=== PATIENT | female | born 1940 | race Caucasian/White ===

== ENCOUNTER → 2017-01-27 | Outpatient (CLI) | payer MEDICARE, OTHER ==
[~2017-01-27] MED LIST: BUSP5 PO; COUM3TAB PO; COUM6TAB PO; DIOV160T6 PO; PRAV40TA2 PO; PREG25 PO; PROT40TA PO; RISP0.5T2 PO; RIVASTIGMINE PO; ZOLO50TA PO
[2017-01-27 16:04] LABS: INTERNATIONAL NORMALIZED RATIO 1.3 RATIO; PROTHROMBIN TIME - PATIENT 14.5 SEC (9.8-11.6)
== END ==
LOC: PLAB 15:36
DX: Z79.01 Long term (current) use of anticoagulants (principal)
CPT/HCPCS: 36415; 85610

== ENCOUNTER → 2017-10-05 | Outpatient (CLI) | payer MEDICARE, OTHER ==
[2017-10-05 14:07] LABS: INTERNATIONAL NORMALIZED RATIO 2.2 RATIO; PROTHROMBIN TIME - PATIENT 24.9 SEC (9.8-11.6)
== END ==
LOC: PLAB 12:56
DX: I80.9 Phlebitis and thrombophlebitis of unspecified site (principal); Z79.01 Long term (current) use of anticoagulants
CPT/HCPCS: 36415; 85610

== ENCOUNTER → 2017-11-11 | Outpatient (CLI) | payer MEDICARE, OTHER ==
[2017-11-11 13:35] LABS: INTERNATIONAL NORMALIZED RATIO 2.3 RATIO; PROTHROMBIN TIME - PATIENT 23.6 SEC (9.8-11.6)
== END ==
LOC: PLAB 11:54
DX: I80.9 Phlebitis and thrombophlebitis of unspecified site (principal); Z79.01 Long term (current) use of anticoagulants
CPT/HCPCS: 36415; 85610

== ENCOUNTER 2017-11-26 10:13 | Emergency (ER) | payer MEDICARE, OTHER ==
[2017-11-26 10:30] VITALS: BP 113/65; PULSE 85; RESP 18; TEMP 99.7; O2SAT 98
--- NOTE | 2017-11-26 11:31 | PD ---
HPI Chief Complaint: Fall Time Seen by Provider: 11:10 Travel History International Travel<30 days: No Contact w/Intl Traveler<30days: No Traveled to known affect area: No History of Present Illness HPI The patient was seen and examined in the presence of the nurse. This patient had a fall today. She is wheelchair bound in general. She was getting out of bed and tried to ambulate to her wheelchair but her diaper got caught on it and she stumbled and fell. She is not sure if she hit her head. She complains of left-sided neck pain. She has pain in both hips and knees. Severity is moderate. Duration 2 hours. No alleviating factors. Symptoms exacerbated by her deconditioning. No LOC. PFSH Past Medical History Arthritis: Yes Depression: Yes High Cholesterol: Yes Cerebrovascular Accident: Yes (2007) Diminished Hearing: Yes (BILATERAL) GERD: Yes Hypertension: Yes Neurologic: Yes Immunizations Current: Yes PNEUMOCCOCAL Vaccine (Year): 3 Menopausal: Yes Past Surgical History Ear Surgery: Yes Tympanostomy Tube: Yes (mastoidectomy) Social History Alcohol Use: Yes (WINE) Tobacco Use: No Substance Use: No Allergies-Medications (Allergen,Severity, Reaction): Coded Allergies: latex (Unverified Allergy, Intermediate, RASH, 07/06/17) Reported Meds & Prescriptions Reported Meds & Active Scripts Active Reported [Rivastigmine] 1.5 Mg PO BID Review of Systems General / Constitutional: No: Fever Eyes: No: Visual changes HENT: Positive: Headaches, Neck Pain Cardiovascular: No: Chest Pain or Discomfort Respiratory: No: Shortness of Breath Gastrointestinal: No: Abdominal Pain Genitourinary: No: Dysuria Musculoskeletal: Positive: Arthralgias, Limited ROM, Pain Skin: No Rash Neurologic: No: Weakness Psychiatric: No: Depression Endocrine: No: Polydipsia Hematologic/Lymphatic: No: Easy Bruising Physical Exam Narrative GENERAL: Well-nourished, well-developed patient with neck and leg pain . SKIN: Focused skin assessment reveals no rash and nodules. Skin is Warm and dry. HEAD: Atraumatic. Normocephalic. EYES: Pupils equal and round. No scleral icterus. No injection or drainage. ENT: No nasal bleeding or discharge. Mucous membranes pink and moist. NECK: Trachea midline. No JVD. No midline tenderness. No bruising or swelling. [place] collar was applied CARDIOVASCULAR: Regular rate and rhythm. No murmur appreciated. RESPIRATORY: No accessory muscle use. Clear to auscultation. Breath sounds equal bilaterally. GASTROINTESTINAL: Abdomen soft, non-tender, nondistended. Hepatic and splenic margins not palpable. MUSCULOSKELETAL: Patient's hip and knee joints are stiff bilaterally. Right leg seem shorter than the left. Baseline is unclear. No bruising or open wound. No clubbing. No cyanosis. No edema. NEUROLOGICAL: Awake and alert. No obvious cranial nerve deficits. Motor grossly within normal limits. Normal speech. PSYCHIATRIC: Appropriate mood and affect; insight and judgment normal. Data Data Last Documented VS Vital Signs Date Time Temp Pulse Resp B/P (MAP) Pulse Ox O2 Delivery O2 Flow Rate FiO2 11/26/17 12:42 96 14 121/70 (87) 94 Room Air 11/26/17 10:30 99.7 Orders Orders Iv Access Insert/Monitor (11/26/17 11:18) Complete Blood Count With Diff (11/26/17 11:18) Basic Metabolic Panel (Bmp) (11/26/17 11:18) Pelvis, Ap Only (Routine) (11/26/17 ) Femur (Ap & Lat/2vws) (11/26/17 ) Femur (Ap & Lat/2vws) (11/26/17 ) Ct Brain W/O Iv Contrast(Rout) (11/26/17 ) Ct Cerv Spine W/O Contrast (11/26/17 ) Ed Discharge Order (11/26/17 13:25) Labs Laboratory Tests Test 11/26/17 11:30 White Blood Count 4.3 TH/MM3 Red Blood Count 4.18 MIL/MM3 Hemoglobin 12.2 GM/DL Hematocrit 37.1 % Mean Corpuscular Volume 88.9 FL Mean Corpuscular Hemoglobin 29.2 PG Mean Corpuscular Hemoglobin Concent 32.8 % Red Cell Distribution Width 13.8 % Platelet Count 203 TH/MM3 Mean Platelet Volume 8.2 FL Neutrophils (%) (Auto) 68.8 % Lymphocytes (%) (Auto) 10.0 % Monocytes (%) (Auto) 19.0 % Eosinophils (%) (Auto) 0.1 % Basophils (%) (Auto) 2.1 % Neutrophils # (Auto) 3.0 TH/MM3 Lymphocytes # (Auto) 0.4 TH/MM3 Monocytes # (Auto) 0.8 TH/MM3 Eosinophils # (Auto) 0.0 TH/MM3 Basophils # (Auto) 0.1 TH/MM3 CBC Comment DIFF FINAL Differential Comment Blood Urea Nitrogen 14 MG/DL Creatinine 1.20 MG/DL Random Glucose 112 MG/DL Calcium Level 9.1 MG/DL Sodium Level 140 MEQ/L Potassium Level 4.2 MEQ/L Chloride Level 103 MEQ/L Carbon Dioxide Level 30.0 MEQ/L Anion Gap 7 MEQ/L Estimat Glomerular Filtration Rate 43 ML/MIN MDM Medical Decision Making Medical Screen Exam Complete: Yes Emergency Medical Condition: Yes Medical Record Reviewed: Yes Differential Diagnosis Hip fracture, cervical spine injury, pelvic fracture Narrative Course I have reviewed the patient's electronic medical record. IV placed CBC is normal Metabolic profile is normal Brain CT is negative for acute injury Cervical spine CT shows degenerative change without fracture I reviewed her pelvis x-ray is negative I reviewed her femur x-rays bilaterally are negative Extensive workup here is negative. Stable for outpatient follow-up. Recommended she discuss shelter placement with her physician given her general debility. She does get around with her wheelchair. Diagnosis Primary Impression: Fall Qualified Codes: W19.XXXA - Unspecified fall, initial encounter Additional Impressions: Cervical strain, acute Qualified Codes: S16.1XXA - Strain of muscle, fascia and tendon at neck level , initial encounter Multiple leg contusions Qualified Codes: S80.10XA - Contusion of unspecified lower leg, initial encounter Additional Instructions: The patient was advised to follow up with their physician and return if they worsen. Discussed shelter placement with her physician Med/Other Pt SpecificInfo: Other Disposition: 01 DISCHARGE HOME Condition: Stable Stephan Banerjee MD Nov 26, 2017 11:31
[2017-11-26 11:45] LABS: BASOPHIL # 0.1 TH/MM3 (0-0.2); BASOPHIL % 2.1 % (0.0-2.0); EOSINOPHIL % 0.1 % (0.0-4.0); HEMATOCRIT 37.1 % (35.0-46.0); HEMOGLOBIN 12.2 GM/DL (11.6-15.3); LYMPHOCYTE # 0.4 TH/MM3 (1.0-4.8); MEAN CELL VOLUME 88.9 FL (80.0-100.0); MEAN CORPUSCULAR HEMOGLOBIN 29.2 PG (27.0-34.0); MEAN CORPUSCULAR HGB CONC 32.8 % (32.0-36.0); MEAN PLATELET VOLUME 8.2 FL (7.0-11.0); MONOCYTE # 0.8 TH/MM3 (0-0.9); NEUT % 68.8 % (16.0-70.0); PLATELET COUNT 203 TH/MM3 (150-450); RED BLOOD COUNT 4.18 MIL/MM3 (4.00-5.30); RED CELL DISTRIBUTION WIDTH 13.8 % (11.6-17.2); WHITE BLOOD COUNT 4.3 TH/MM3 (4.0-11.0)
[2017-11-26 11:56] LABS: CALCIUM 9.1 MG/DL (8.5-10.1)
[2017-11-26 12:00] LABS: CREATININE 1.2 MG/DL (0.50-1.00)
--- NOTE | 2017-11-26 12:21 | RADRPT ---
EXAM DATE/TIME: 11/26/2017 11:37 [facility] COMPARISON: No previous studies available for comparison. INDICATIONS : Trauma. Fall. RADIATION DOSE: 63.75 CTDIvol (mGy) MEDICAL HISTORY : Cerebrovascular disease. Gastroesophageal reflux disease. SURGICAL HISTORY : Mastoidectomy. ENCOUNTER: Initial ACUITY: 1 day PAIN SCALE: 5/10 LOCATION: cranial TECHNIQUE: Multiple contiguous axial images were obtained of the head. Using automated exposure control and adj ustment of the mA and/or kV according to patient size, radiation dose was kept as low as reasonably a chievable to obtain optimal diagnostic quality images. DICOM format image data is available electro nically for review and comparison. FINDINGS: CEREBRUM: Old infarct right orbital focal region. Ventricle size appropriate. No extra-axial fluid. No paren chymal hemorrhage. POSTERIOR FOSSA: The cerebellum and brainstem are intact. The 4th ventricle is midline. The cerebellopontine angle i s unremarkable. EXTRACRANIAL: The visualized portion of the orbits is intact. SKULL: The calvaria is intact. No evidence of skull fracture. CONCLUSION: Old infarct Right orbitofrontal region Yvan Jung MD FACR on November 26, 2017 at 12:17 Board Certified Radiologist. This report was verified electronically.
--- NOTE | 2017-11-26 12:30 | RADRPT ---
EXAM DATE/TIME: 11/26/2017 11:37 [facility] COMPARISON: No previous studies available for comparison. INDICATIONS : Trauma. Fall. RADIATION DOSE: 26.41 CTDIvol (mGy) MEDICAL HISTORY : Cerebrovascular disease. Gastroesophageal reflux disease. Hypertension. SURGICAL HISTORY : Mastoidectomy. ENCOUNTER: Initial ACUITY: 1 day PAIN SCALE: 7/10 LOCATION: neck TECHNIQUE: Volumetric scanning of the cervical spine was performed. Multiplanar reconstructions in the sagittal, coronal and oblique axial planes were performed. Using automated exposure control and adjustment o f the mA and/or kV according to patient size, radiation dose was kept as low as reasonably achievable to obtain optimal diagnostic quality images. DICOM format image data is available electronically f or review and comparison. FINDINGS: There is moderate to severe degenerative disc throughout the spine with a mild dextroscoliosis. There is no acute fracture or spondylolisthesis. There is no significant central bony canal stenosis. Ther e is mild multilevel bony foraminal encroachment. No prevertebral soft tissue swelling. Mild osteopen ia. CONCLUSION: 1. Moderate to severe degenerative disc disease. No acute findings. Gianni Henry MD on November 26, 2017 at 12:25 Board Certified Radiologist. This report was verified electronically.
--- NOTE | 2017-11-26 12:31 | RADRPT ---
EXAM DATE/TIME: 11/26/2017 11:51 [facility] COMPARISON: No previous studies available for comparison. INDICATIONS : Bilateral hip pain post fall. MEDICAL HISTORY : None. SURGICAL HISTORY : None. ENCOUNTER: Initial ACUITY: 1 day PAIN SCORE: Non-responsive. LOCATION: Bilateral hips FINDINGS: A single frontal view of the pelvis demonstrates no evidence of fracture. The bony pelvic ring is in tact. Bony mineralization is decreased. Mild osteoarthritis of the hips.. CONCLUSION: 1. No acute findings. Osteopenia. Mild osteoarthritis of the hips. Gianni Henry MD on November 26, 2017 at 12:29 Board Certified Radiologist. This report was verified electronically.
--- NOTE | 2017-11-26 12:32 | RADRPT ---
EXAM DATE/TIME: 11/26/2017 11:51 [facility] COMPARISON: No previous studies available for comparison. INDICATIONS : Left leg pain post fall. MEDICAL HISTORY : None. SURGICAL HISTORY : None. ENCOUNTER: Initial ACUITY: 1 day PAIN SCORE: Non-responsive. LOCATION: Left femur FINDINGS: Two view examination of the left femur demonstrates no acute femur fracture. Mild osteoarthritis at t he left hip and left knee. No bony destructive changes. CONCLUSION: 1. No acute findings. Mild osteoarthritis of the left hip and left knee. Osteopenia. Gianni Henry MD on November 26, 2017 at 12:30 Board Certified Radiologist. This report was verified electronically.
--- NOTE | 2017-11-26 12:32 | RADRPT ---
EXAM DATE/TIME: 11/26/2017 11:51 [facility] COMPARISON: No previous studies available for comparison. INDICATIONS : Right leg pain post fall. MEDICAL HISTORY : None. SURGICAL HISTORY : None. ENCOUNTER: Initial ACUITY: 1 day PAIN SCORE: Non-responsive. LOCATION: Right femur FINDINGS: Two view examination of the right femur demonstrates no evidence of fracture or dislocation. Bony mi neralization is decreased. Mild osteoarthritis right hip. Severe osteoarthritis at the right knee. CONCLUSION: 1. No acute findings. Gianni Henry MD on November 26, 2017 at 12:30 Board Certified Radiologist. This report was verified electronically.
[2017-11-26 12:42] VITALS: BP 121/70; PULSE 96; RESP 14; O2SAT 94
[2017-11-26 14:43] VITALS: BP 135/68; PULSE 90; RESP 16; O2SAT 93
[2017-11-27] MEDS ORDERED: RIVA1.5C PO (14:20)
[2017-11-27] MEDS ORDERED: RISP0.5T25 PO (14:20)
[2017-11-27] MEDS ORDERED: PROT40TA PO (14:20)
[2017-11-27] MEDS ORDERED: ALBUAER3 INH (14:20)
[2017-11-27] MEDS ORDERED: WARF-58 PO (14:20)
[2017-11-27] MEDS ORDERED: SERT-129 PO (14:20)
[2017-11-27] MEDS ORDERED: COUM3TAB PO (14:20)
== END 2017-11-26 15:48 | disposition home or self-care (01) ==
LOC: PHED 10:13
DX: S16.1XXA Strain of muscle, fascia and tendon at neck level, initial encounter (principal); S80.10XA Contusion of unspecified lower leg, initial encounter; I10 Essential (primary) hypertension; M25.552 Pain in left hip; M25.551 Pain in right hip; M25.562 Pain in left knee; M25.561 Pain in right knee; W01.0XXA Fall on same level from slipping, tripping and stumbling without subsequent striking against object, initial encounter
CPT/HCPCS: 70450; 72125; 72170; 73552; 80048; 85025; 99285

== ENCOUNTER 2017-11-27 11:46 | Inpatient (IN) | payer MEDICARE, OTHER ==
[2017-11-27] VITALS (17 sets, daily range): BP systolic 92–138; BP diastolic 52–83; PULSE 79–150; RESP 18–20; TEMP 97.9–98.9; O2SAT 96–99
[~2017-11-27] VITALS: Ht 165.1 cm; Wt 97.0 kg
[~2017-11-27 11:46] MED LIST changes: -BUSP5 PO; -COUM3TAB PO; -COUM6TAB PO; -DIOV160T6 PO; -PRAV40TA2 PO; -PREG25 PO; -PROT40TA PO; -RISP0.5T2 PO; -ZOLO50TA PO
--- NOTE | 2017-11-27 12:06 | PD ---
HPI Chief Complaint: Neuro Symptoms/ Deficits Time Seen by Provider: 11:55 Travel History International Travel<30 days: No Contact w/Intl Traveler<30days: No Traveled to known affect area: No History of Present Illness HPI This is a 77-year-old female who primarily ambulates in a wheelchair. She presents via EMS for evaluation after fall. Per their report the patient slid out of bed today and her was unable to get her up. The also reported to EMS that the patient has been acting strange over the past few days , not answering questions when prompted primarily. She also had wheezing on route which is also reportedly new. On examination the patient is very hard of hearing and appears to have difficulty with comprehension which is limiting history. She does corroborate EMS report that she slid out of bed today and was unable to get up. She is complaining of neck pain and seems to have pain in the left hip with any sort of movement of the left hip. It should be noted that the patient was seen at [facility] after having a mechanical fall yesterday. PFSH Past Medical History Arthritis: Yes Depression: Yes High Cholesterol: Yes Cerebrovascular Accident: Yes (2007) Diminished Hearing: Yes (BILATERAL AIDS) GERD: Yes Hypertension: Yes Neurologic: Yes Immunizations Current: Yes PNEUMOCCOCAL Vaccine (Year): 3 Menopausal: Yes Past Surgical History Ear Surgery: Yes Tympanostomy Tube: Yes (mastoidectomy) Social History Alcohol Use: Yes (WINE) Tobacco Use: No Substance Use: No Allergies-Medications (Allergen,Severity, Reaction): Coded Allergies: latex (Unverified Allergy, Intermediate, RASH, 07/06/17) Reported Meds & Prescriptions Reported Meds & Active Scripts Active Reported Proair Hfa 8.5 GM Inh (Albuterol Sulfate) 90 Mcg/Act Aer 2 Puff INH Q4H PRN 108 mcg/actuation Protonix (Pantoprazole Sodium) 40 Mg Tab 40 Mg PO DAILY Risperdal (Risperidone) 0.5 Mg Tab 0.5 Mg PO HS Sertraline (Sertraline HCl) 100 Mg Tab 100 Mg PO DAILY Warfarin 3 Mg Tab 4.5 Mg PO WEDNESDAY Coumadin (Warfarin) 3 Mg Tab 3 Mg PO SUMOTUWEFRSA Take 1 tablet (3mg) daily on Wednesday,Wednesday,Wednesday,Wednesday,Wednesday and Wednesday Rivastigmine 1.5 Mg Cap 1.5 Mg PO BID Review of Systems ROS Limitations: Clinical Condition Except as stated in HPI: all other systems reviewed are Neg Physical Exam Exam Limitations: Clinical Condition, Poor Historian Narrative GENERAL: This is an obese elderly female who is in no acute distress. SKIN: Warm and dry. Severe intertrigo noted in the groin. HEAD: Atraumatic. Normocephalic. EYES: Pupils equal and round reactive to light extraocular muscles are intact. No scleral icterus. No injection or drainage. ENT: No nasal bleeding or discharge. Mucous membranes pink and moist. NECK: Trachea midline. No JVD. CARDIOVASCULAR: Regular rate and rhythm. No murmur appreciated. RESPIRATORY: No accessory muscle use. Bilateral wheezing noted. Breath sounds equal bilaterally. GASTROINTESTINAL: Abdomen soft, non-tender, nondistended. Hepatic and splenic margins not palpable. MUSCULOSKELETAL: Left hip is internally rotated. There is tenderness to palpation left hip and pain with any sort of passive range of motion of the left hip. NEUROLOGICAL: Awake and alert. No obvious cranial nerve deficits. Motor grossly within normal limits. Data Data Last Documented VS Vital Signs Date Time Temp Pulse Resp B/P (MAP) Pulse Ox O2 Delivery O2 Flow Rate FiO2 11/27/17 14:19 112 18 103/62 (76) 98 Nasal Cannula 3.00 11/27/17 12:[address] Cerv Spine W/O Contrast (11/27/17 ) Chest, Single Ap (11/27/17 ) Ct Brain W/O Iv Contrast(Rout) (11/27/17 ) Hip, Uni(Ap&Lat) W Ap Pelvis (11/27/17 ) Electrocardiogram (11/27/17 12:03) Complete Blood Count With Diff (11/27/17 12:03) Comprehensive Metabolic Panel (11/27/17 12:03) Prothrombin Time / Inr (Pt) (11/27/17 12:03) Act Partial Throm Time (Ptt) (11/27/17 12:03) Urinalysis - C+S If Indicated (11/27/17 12:03) Blood Glucose (11/27/17 12:03) Ecg Monitoring (11/27/17 12:03) Iv Access Insert/Monitor (11/27/17 12:03) Oximetry (11/27/17 12:03) Sodium Chloride 0.9% Flush (Ns Flush) (11/27/17 12:15) Albuterol-Ipratropium Neb (Duoneb Neb) (11/27/17 12:15) Diltiazem Inj (Cardizem Inj) (11/27/17 14:00) Sodium Chlor 0.9% 1000 Ml Inj (Ns 1000 M (11/27/17 13:46) Urine Culture (11/27/17 13:20) Diltiazem Inj (Cardizem Inj) (11/27/17 14:15) Diltiazem Inj (Cardizem Inj) (11/27/17 14:45) Admit Order (Ed Use Only) (11/27/17 14:41) Nystatin Powder (Mycostatin Powder) (11/27/17 14:45) Labs Laboratory Tests Test 11/27/17 13:20 White Blood Count 6.7 TH/MM3 Red Blood Count 4.27 MIL/MM3 Hemoglobin 12.6 GM/DL Hematocrit 38.5 % Mean Corpuscular Volume 90.2 FL Mean Corpuscular Hemoglobin 29.5 PG Mean Corpuscular Hemoglobin Concent 32.7 % Red Cell Distribution Width 14.4 % Platelet Count 174 TH/MM3 Mean Platelet Volume 8.8 FL Neutrophils (%) (Auto) 57.9 % Lymphocytes (%) (Auto) 29.3 % Monocytes (%) (Auto) 12.6 % Eosinophils (%) (Auto) 0.0 % Basophils (%) (Auto) 0.2 % Neutrophils # (Auto) 3.9 TH/MM3 Lymphocytes # (Auto) 2.0 TH/MM3 Monocytes # (Auto) 0.8 TH/MM3 Eosinophils # (Auto) 0.0 TH/MM3 Basophils # (Auto) 0.0 TH/MM3 CBC Comment DIFF FINAL Differential Comment Prothrombin Time 19.7 SEC Prothromb Time International Ratio 1.9 RATIO Activated Partial Thromboplast Time 37.8 SEC Urine Color YELLOW Urine Turbidity HAZY Urine pH 5.5 Urine Specific Newman 1.027 Urine Protein 100 mg/dL Urine Glucose (UA) NEG mg/dL Urine Ketones 10 mg/dL Urine Occult Blood SMALL Urine Nitrite NEG Urine Bilirubin NEG Urine Urobilinogen LESS THAN 2.0 MG/DL Urine Leukocyte Esterase NEG Urine RBC 1 /hpf Urine WBC 2 /hpf Urine Squamous Epithelial Cells 1 /hpf Urine Amorphous Sediment MOD Urine Bacteria FEW /hpf Urine Granular Casts 4 /lpf Urine Mucus FEW /lpf Microscopic Urinalysis Comment CATH-CULTURE IND Blood Urea Nitrogen 15 MG/DL Creatinine 1.22 MG/DL Random Glucose 124 MG/DL Total Protein 7.5 GM/DL Albumin 3.4 GM/DL Calcium Level 9.2 MG/DL Alkaline Phosphatase 53 U/L Aspartate Amino Transf (AST/SGOT) 51 U/L Alanine Aminotransferase (ALT/SGPT) 23 U/L Total Bilirubin 0.4 MG/DL Sodium Level 139 MEQ/L Potassium Level 4.0 MEQ/L Chloride Level 101 MEQ/L Carbon Dioxide Level 29.7 MEQ/L Anion Gap 8 MEQ/L Estimat Glomerular Filtration Rate 43 ML/MIN [facility] Medical Decision Making Medical Screen Exam Complete: Yes Emergency Medical Condition: Yes Medical Record Reviewed: Yes Interpretation(s) Imaging studies reveal degenerative changes with no acute findings Differential Diagnosis Inability to ambulate, CVA, dehydration, UTI, electrolyte abnormality, intracranial hemorrhage... Narrative Course The patient will be placed on ECG monitoring pulse oximetry. A twelve-lead EKG will be obtained. Plan is for CT of the brain, cervical spine. Left hip x-ray , chest x-ray has been ordered. Lab work, urinalysis have been ordered. DuoNeb therapy will be administered. I discussed with the patient's reports over the past several days the patient has had a decline in ability to perform activities of daily living. He is unable to care for her in her current state of health. Shortly after the patient received DuoNeb treatment her heart rate was noted to be in the 140s. EKG reveals atrial fibrillation with RVR. No obvious history of this on her medical records and the patient is noncontributory per her history. The patient will be given IV fluid bolus as well as diltiazem bolus. Initial diltiazem bolus with minimal change in heart rate, second bolus was initiated with minimal change in heart rate. Therefore diltiazem drip has been initiated. Nystatin powder has been ordered for her intertrigo. The patient was admitted to her primary care physician Dr. Glass. Diagnosis Primary Impression: Atrial fibrillation with RVR Additional Impressions: Altered mental status Intertrigo Decreased activities of daily living (ADL) Admitting Information Admitting Physician Requests: Admit Chuck Rebolledo Nov 27, 2017 12:06
[2017-11-27] MEDS ORDERED: SODIUM CHLORIDE 0.9% FLUSH 10 ML FLUSH IV FLUSH PRN (12:15)
--- NOTE | 2017-11-27 12:49 | RADRPT ---
EXAM DATE/TIME: 11/27/2017 12:25 [facility] COMPARISON: No previous studies available for comparison. INDICATIONS : Chest discomfort, altered mental status starting today MEDICAL HISTORY : None. SURGICAL HISTORY : None. ENCOUNTER: Initial ACUITY: 1 day PAIN SCORE: Non-responsive. LOCATION: Bilateral chest FINDINGS: Degenerative changes and scoliosis of the thoracic spine are noted. The heart is minimally prominent. The pulmonary vascular pattern is normal. The lungs are clear. CONCLUSION: 1. No acute focal pulmonary infiltrate or pulmonary vascular congestion. 2. Mild cardiomegaly. 3. Degenerative changes and scoliosis of the thoracic spine. Kameron Elizabeth MD on November 27, 2017 at 12:46 Board Certified Radiologist. This report was verified electronically.
--- NOTE | 2017-11-27 12:51 | RADRPT ---
EXAM DATE/TIME: 11/27/2017 12:19 [facility] COMPARISON: No previous studies available for comparison. INDICATIONS : Left hip pain with no known injury MEDICAL HISTORY : None. SURGICAL HISTORY : None. ENCOUNTER: Initial ACUITY: 1 day PAIN SCORE: 7/10 LOCATION: Left entire hip FINDINGS: No acute fracture or dislocation. Degenerative changes and scoliosis of the lower lumbar spine. CONCLUSION: 1. No acute fracture or dislocation. 2. Degenerative changes and scoliosis of the lower lumbar spine. Kameron Elizabeth MD on November 27, 2017 at 12:47 Board Certified Radiologist. This report was verified electronically.
[2017-11-27] MEDS: RESP: ALBUTEROL 2.5 MG/IPRATROPIUM 0.5 MG NEB (SCH) INH (12:57)
--- NOTE | 2017-11-27 13:09 | RADRPT ---
EXAM DATE/TIME: 11/27/2017 12:40 [facility] COMPARISON: CT BRAIN W/O CONTRAST, November 26, 2017, 11:37. INDICATIONS : Altered mental status. RADIATION DOSE: 44.32 CTDIvol (mGy) MEDICAL HISTORY : Hypertension. Stroke SURGICAL HISTORY : mastoidectomy ENCOUNTER: Initial ACUITY: 1 day PAIN SCALE: Non-responsive LOCATION: Bilateral head TECHNIQUE: Multiple contiguous axial images were obtained of the head. Using automated exposure control and adj ustment of the mA and/or kV according to patient size, radiation dose was kept as low as reasonably a chievable to obtain optimal diagnostic quality images. DICOM format image data is available electro nically for review and comparison. FINDINGS: CEREBRUM: There is evidence of an old infarct involving the right middle cerebral artery distribution with ence phalomalacia throughout the right temporal and parietal lobes and ex vacuo dilatation of right latera l ventricle. No acute infarct, acute hemorrhage, midline shift or extra-axial fluid collections are n oted. POSTERIOR FOSSA: The cerebellum and brainstem are intact. The 4th ventricle is midline. The cerebellopontine angle i s unremarkable. EXTRACRANIAL: The visualized portion of the orbits is intact. Mild mucosal thickening is noted within the sphenoid sinuses bilaterally. SKULL: The calvaria is intact. No evidence of skull fracture. CONCLUSION: 1. Old right MCA infarct with associated encephalomalacia involving the right temporal and parietal l obes and ex vacuo dilatation of the right lateral ventricle. 2. No acute infarct, acute hemorrhage, mass effect or extra-axial fluid collections. Kameron Elizabeth MD on November 27, 2017 at 13:04 Board Certified Radiologist. This report was verified electronically.
--- NOTE | 2017-11-27 13:17 | RADRPT ---
EXAM DATE/TIME: 11/27/2017 12:40 [place] COMPARISON: CT CERVICAL SPINE W/O CONTRAST, November 26, 2017, 11:37. INDICATIONS : Trauma, fall. RADIATION DOSE: 31.32 CTDIvol (mGy) MEDICAL HISTORY : Stroke. Hypertension. SURGICAL HISTORY : mastoidectomy ENCOUNTER: Initial ACUITY: 1 day PAIN SCALE: Non-responsive LOCATION: Bilateral neck TECHNIQUE: Volumetric scanning of the cervical spine was performed. Multiplanar reconstructions in the sagittal, coronal and oblique axial planes were performed. Using automated exposure control and adjustment o f the mA and/or kV according to patient size, radiation dose was kept as low as reasonably achievable to obtain optimal diagnostic quality images. DICOM format image data is available electronically f or review and comparison. FINDINGS: Sagittal images demonstrate normal vertebral body alignment and curvature. The odontoid is intact. Th e occipital condyles and lateral masses of C1 are intact. Axial images were performed from C2-C3 to C7-T1. There is multilevel disc space narrowing and marginal osteophyte formation maximal at C4-C5. There is osteorathritis involving the atlantoaxial joint with sclerosis and osteophyte formation. The re is calcification of the transverse ligament. There is fluid in the sphenoid sinus. There is previo us right mastoidectomy. C2-C3: There is no evidence of disc protrusion or spinal canal stenosis. There is moderate facet arthritis o n the left. C3-C4: There is osteophytic ridging along the posterior aspect of vertebral body. There is mild neural eliceo inal narrowing bilaterally. There is mild facet arthritis bilaterally. C4-C5: There is osteophytic ridging along the posterior aspect of vertebral body. There is no significant sp inal canal stenosis. C5-C6: There is uncovertebral joint hypertrophy on left side. There is mild left sided neural foraminal narr owing. There is no significant spinal canal stenosis. C6-C7: There is osteophytic ridging along the posterior aspect of vertebral body. There is mild facet arthri tis bilaterally. C7-T1: There is no evidence of disc protrusion or spinal canal stenosis. There is mild facet arthritis bilat erally. CONCLUSION: 1. Moderate degenerative changes as described above. There is no evidence of acute fracture. Marcos Worrell MD on November 27, 2017 at 13:10 Board Certified Radiologist. This report was verified electronically.
[2017-11-27] MEDS ORDERED: SODIUM CHLOR 0.9% 1000 ML INJ 1,000 ML IV SCH (13:46)
[2017-11-27 13:52] LABS: AUTOMATED NEUTROPHIL # 3.9 TH/MM3 (1.8-7.7); BASOPHIL % 0.2 % (0.0-2.0); HEMATOCRIT 38.5 % (35.0-46.0); HEMOGLOBIN 12.6 GM/DL (11.6-15.3); LYMPH % 29.3 % (9.0-44.0); MEAN CELL VOLUME 90.2 FL (80.0-100.0); MEAN CORPUSCULAR HEMOGLOBIN 29.5 PG (27.0-34.0); MEAN CORPUSCULAR HGB CONC 32.7 % (32.0-36.0); MEAN PLATELET VOLUME 8.8 FL (7.0-11.0); MONO % 12.6 % (0.0-8.0); MONOCYTE # 0.8 TH/MM3 (0-0.9); NEUT % 57.9 % (16.0-70.0); PLATELET COUNT 174 TH/MM3 (150-450); RED BLOOD COUNT 4.27 MIL/MM3 (4.00-5.30); RED CELL DISTRIBUTION WIDTH 14.4 % (11.6-17.2); WHITE BLOOD COUNT 6.7 TH/MM3 (4.0-11.0)
[2017-11-27 13:54] LABS: AMORPHOUS SEDIMENT, URINE MOD; BACTERIA, URINE FEW /hpf; BILIRUBIN, URINE NEG (NEG); BLOOD, URINE SMALL (NEG); GLUCOSE,URINE NEG (NEG); KETONE, URINE 10 mg/dL (NEG); MUCUS URINE FEW /lpf (OCC); NITRITE,URINE NEG (NEG); PH, URINE 5.5 (5.0-8.5); SQUAMOUS EPITHELIAL CELL URINE 1 /hpf (0-5); URINE COLOR YELLOW (YELLW/STRAW); URINE LEUKOCYTE ESTERASE NEG (NEG)
[2017-11-27] MEDS ORDERED: DILTIAZEM HCL 25 MG/5 ML VIAL IV ONE ×2 (14:00→14:15)
[2017-11-27 14:03] LABS: INTERNATIONAL NORMALIZED RATIO 1.9 RATIO; PROTHROMBIN TIME - PATIENT 19.7 SEC (9.8-11.6)
[2017-11-27 14:09] LABS: ALKALINE PHOSPHATASE 53 U/L (45-117); TOTAL BILIRUBIN ADULT 0.4 MG/DL (0.2-1.0); TOTAL PROTEIN 7.5 GM/DL (6.4-8.2)
[2017-11-27 14:10] LABS: ALBUMIN 3.4 GM/DL (3.4-5.0); ALT (GPT) 23 U/L (10-53); AST (GOT) 51 U/L (15-37); BICARBONATE 29.7 MEQ/L (21.0-32.0); BLOOD UREA NITROGEN 15 MG/DL (7-18); CALCIUM 9.2 MG/DL (8.5-10.1); CHLORIDE 101 MEQ/L (98-107); CREATININE 1.22 MG/DL (0.50-1.00); GLOMERULAR FILTRATION RATE 43 ML/MIN (>89); GLUCOSE,RANDOM 124 MG/DL (74-106); SODIUM (NA) 139 MEQ/L (136-145)
[2017-11-27] MEDS ORDERED: RIVA1.5C PO (14:20)
[2017-11-27] MEDS ORDERED: ALBUAER3 INH (14:20)
[2017-11-27] MEDS ORDERED: SERT-129 PO (14:20)
[2017-11-27] MEDS ORDERED: PROT40TA PO (14:20)
[2017-11-27] MEDS ORDERED: COUM3TAB PO (14:20)
[2017-11-27] MEDS ORDERED: WARF-58 PO (14:20)
[2017-11-27] MEDS ORDERED: RISP0.5T25 PO (14:20)
--- NOTE | 2017-11-27 14:39 | PD ---
Physical Exam Narrative GENERAL: Well-nourished, well-developed patient. SKIN: Warm and dry. HEAD: Normocephalic and atraumatic. EYES: No injection or drainage. ENT: No nasal drainage noted. NECK: Supple, trachea midline. CARDIOVASCULAR: irregular rate and rhythm RESPIRATORY: no increased effort. No accessory muscle use. GASTROINTESTINAL: Abdomen nondistended. NEUROLOGICAL: Awake and alert to name. moves extremities and sensory grossly within normal limits. Normal speech. Data Data Last Documented VS Vital Signs Date Time Temp Pulse Resp B/P (MAP) Pulse Ox O2 Delivery O2 Flow Rate FiO2 11/27/17 14:19 112 18 103/62 (76) 98 Nasal Cannula 3.00 11/27/17 12:[address] Cerv Spine W/O Contrast (11/27/17 ) Chest, Single Ap (11/27/17 ) Ct Brain W/O Iv Contrast(Rout) (11/27/17 ) Hip, Uni(Ap&Lat) W Ap Pelvis (11/27/17 ) Electrocardiogram (11/27/17 12:03) Complete Blood Count With Diff (11/27/17 12:03) Comprehensive Metabolic Panel (11/27/17 12:03) Prothrombin Time / Inr (Pt) (11/27/17 12:03) Act Partial Throm Time (Ptt) (11/27/17 12:03) Urinalysis - C+S If Indicated (11/27/17 12:03) Blood Glucose (11/27/17 12:03) Ecg Monitoring (11/27/17 12:03) Iv Access Insert/Monitor (11/27/17 12:03) Oximetry (11/27/17 12:03) Sodium Chloride 0.9% Flush (Ns Flush) (11/27/17 12:15) Albuterol-Ipratropium Neb (Duoneb Neb) (11/27/17 12:15) Diltiazem Inj (Cardizem Inj) (11/27/17 14:00) Sodium Chlor 0.9% 1000 Ml Inj (Ns 1000 M (11/27/17 13:46) Urine Culture (11/27/17 13:20) Diltiazem Inj (Cardizem Inj) (11/27/17 14:15) Diltiazem Inj (Cardizem Inj) (11/27/17 14:45) Admit Order (Ed Use Only) (11/27/17 14:41) Nystatin Powder (Mycostatin Powder) (11/27/17 14:45) Labs Laboratory Tests Test 11/27/17 13:20 White Blood Count 6.7 TH/MM3 Red Blood Count 4.27 MIL/MM3 Hemoglobin 12.6 GM/DL Hematocrit 38.5 % Mean Corpuscular Volume 90.2 FL Mean Corpuscular Hemoglobin 29.5 PG Mean Corpuscular Hemoglobin Concent 32.7 % Red Cell Distribution Width 14.4 % Platelet Count 174 TH/MM3 Mean Platelet Volume 8.8 FL Neutrophils (%) (Auto) 57.9 % Lymphocytes (%) (Auto) 29.3 % Monocytes (%) (Auto) 12.6 % Eosinophils (%) (Auto) 0.0 % Basophils (%) (Auto) 0.2 % Neutrophils # (Auto) 3.9 TH/MM3 Lymphocytes # (Auto) 2.0 TH/MM3 Monocytes # (Auto) 0.8 TH/MM3 Eosinophils # (Auto) 0.0 TH/MM3 Basophils # (Auto) 0.0 TH/MM3 CBC Comment DIFF FINAL Differential Comment Prothrombin Time 19.7 SEC Prothromb Time International Ratio 1.9 RATIO Activated Partial Thromboplast Time 37.8 SEC Urine Color YELLOW Urine Turbidity HAZY Urine pH 5.5 Urine Specific [place] 1.027 Urine Protein 100 mg/dL Urine Glucose (UA) NEG mg/dL Urine Ketones 10 mg/dL Urine Occult Blood SMALL Urine Nitrite NEG Urine Bilirubin NEG Urine Urobilinogen LESS THAN 2.0 MG/DL Urine Leukocyte Esterase NEG Urine RBC 1 /hpf Urine WBC 2 /hpf Urine Squamous Epithelial Cells 1 /hpf Urine Amorphous Sediment MOD Urine Bacteria FEW /hpf Urine Granular Casts 4 /lpf Urine Mucus FEW /lpf Microscopic Urinalysis Comment CATH-CULTURE IND Blood Urea Nitrogen 15 MG/DL Creatinine 1.22 MG/DL Random Glucose 124 MG/DL Total Protein 7.5 GM/DL Albumin 3.4 GM/DL Calcium Level 9.2 MG/DL Alkaline Phosphatase 53 U/L Aspartate Amino Transf (AST/SGOT) 51 U/L Alanine Aminotransferase (ALT/SGPT) 23 U/L Total Bilirubin 0.4 MG/DL Sodium Level 139 MEQ/L Potassium Level 4.0 MEQ/L Chloride Level 101 MEQ/L Carbon Dioxide Level 29.7 MEQ/L Anion Gap 8 MEQ/L Estimat Glomerular Filtration Rate 43 ML/MIN [facility] Supervised Visit with SHNAE: Yes Interpretation(s) CBC & BMP Diagram 11/27/17 13:20 Total Protein 7.5, Albumin 3.4, Calcium Level 9.2, Alkaline Phosphatase 53, Aspartate Amino Transf (AST/SGOT) 51 H, Alanine Aminotransferase (ALT/SGPT) 23, Total Bilirubin 0.4 Last 24 hours Impressions Hip and Pelvis X-Ray 11/27/17 0000 Signed Impressions: Service Date/Time: Monday, November 27, 2017 12:19 - CONCLUSION: 1. No acute fracture or dislocation. 2. Degenerative changes and scoliosis of the lower lumbar spine. Kameron Elizabeth MD Head CT 11/27/17 0000 Signed Impressions: Service Date/Time: Monday, November 27, 2017 12:40 - CONCLUSION: 1. Old right MCA infarct with associated encephalomalacia involving the right temporal and parietal lobes and ex vacuo dilatation of the right lateral ventricle. 2. No acute infarct, acute hemorrhage, mass effect or extra-axial fluid collections. Kameron Elizabeth MD Chest X-Ray 11/27/17 0000 Signed Impressions: Service Date/Time: Monday, November 27, 2017 12:25 - CONCLUSION: 1. No acute focal pulmonary infiltrate or pulmonary vascular congestion. 2. Mild cardiomegaly. 3. Degenerative changes and scoliosis of the thoracic spine. Kameron Elizabeth MD Cervical Spine CT 11/27/17 0000 Signed Impressions: Service Date/Time: Monday, November 27, 2017 12:40 - CONCLUSION: 1. Moderate degenerative changes as described above. There is no evidence of acute fracture. Marcos Worrell MD Narrative Course I, Dr. monterroso, have reviewed the advance practice practitioner's documentation and am in agreement, met with the patient face to face, made the diagnosis, and the medical decision making was done by me. *My assessment and Findings: 77-year-old female presents after having a fall yesterday. Here she is altered. She is also now in A. fib with RVR. She'll be admitted to the hospital for further care for the above Diagnosis Primary Impression: Atrial fibrillation with RVR Additional Impression: Altered mental status Qualified Codes: R41.82 - Altered mental status, unspecified Admitting Information Admitting Physician Requests: Admit Hird,Kristine May MD Nov 27, 2017 14:39
[2017-11-27] MEDS ORDERED: DILTIAZEM INJ 125 MG in SODIUM CHLORIDE 0.9% INJ 100 ML IV PRN (14:45)
[2017-11-27] MEDS ORDERED: NYSTATIN 100,000 U/GM PWD 15 GM BTL TOPICAL ONE (14:45)
[2017-11-27] MEDS ORDERED: ONDANSETRON HCL 4 MG/2 ML VIAL IVP PRN (15:00)
[2017-11-27] MEDS ORDERED: LACTULOSE SYRUP 20 GM/30 ML CUP PO PRN (15:00)
[2017-11-27] MEDS ORDERED: MAGNESIUM HYDROXIDE SUSP 30 ML CUP PO PRN (15:00)
[2017-11-27] MEDS ORDERED: NALOXONE HCL 0.4 MG/ML AMP IV PUSH PRN (15:00)
[2017-11-27] MEDS ORDERED: BISACODYL 10 MG SUPP RECTAL PRN (15:00)
[2017-11-27] MEDS ORDERED: SENNOSIDES 8.6 MG TAB PO PRN (15:00)
[2017-11-27] MEDS: SODIUM CHLOR 0.9% 1000 ML INJ 1,000 ML IV SCH (15:04)
[2017-11-27] MEDS: ENOXAPARIN SODIUM 40 MG/0.4 ML SYRINGE SQ SCH (16:59)
[2017-11-27] MEDS ORDERED: DIGOXIN 0.5 MG/2 ML VIAL IV PUSH ONE (17:15)
--- NOTE | 2017-11-27 18:17 | MB ---
cc: ALBERT BEY M.D. DATE OF CONSULTATION 11/27/17 HISTORY OF PRESENT ILLNESS Jose is a very pleasant 77-year old lady. She is hard of hearing. She is very somnolent. Her is at the bedside and he notes that she has had difficulty ambulating recently and had a recent stroke and prior TIAs and has been on Coumadin for 20 years. The patient is not arousable enough to get a history from, but the notes no acute change in mental status. She is wakable, but again I cannot engage her in a conversation regarding her review of systems. Therefore, history is obtained from the chart. Her states she was also evaluated at [facility] ER last week and discharged to home. Remainder of the history is obtained from chart. PAST MEDICAL HISTORY 1. Arthritis, 2. Depression, 3. Hyperlipidemia, 4. CVA 2008 5. Bilateral hearing aids. 6. Hypertension 7. Mastoidectomy. SOCIAL HISTORY She drinks wine, denies tobacco use. ALLERGIES LATEX MEDICATIONS Prior to admission 1. Pro-air 2. Protonix 3. Risperdal 4. 5. Warfarin 6. mine. In the hospital 1. Lovenox 40 subcu q.24 h, 2. Senna. 3. Cardizem drip. PHYSICAL EXAMINATION VITAL SIGNS: Blood pressure 103/64, pulse 20, at the bedside blood pressure is 85 systolic and heart rate is ranging between 105 and 115 on telemetry. She is on two liters nasal cannula. She is very somnolent, nonvocal. Arousable by touch. Hard of hearing. NECK: Supple. No JVD. No bruit. CARDIOVASCULAR: S1, S2. No murmurs, rubs or gallops. LUNGS: Clear to auscultation bilaterally ABDOMEN: Soft, nontender, nondistended with positive bowel sounds. EXTREMITIES: No lower extremity edema. LABORATORY DATA White count 6.7, hemoglobin 12.6, hematocrit 38.5, platelet count 174. Troponin is 0.03. Sodium 139, potassium __.9, chloride 101, bicarb 21.7, BUN 15, creatinine 1.22, INR 1.9. CARDIOLOGY STUDIES EKG shows a atrial fibrillation at a rate of 144 beats per minute with nonspecific ST-T wave changes. IMAGING STUDIES Head CT shows old right MCA infarct with associated encephalomalacia involving the right temporal and parietal lobes. Ex vacuo rotation of the right lateral ventricle, no acute infarct, acute hemorrhage, mass effect or extra axial fluid collection. Chest x-ray - No acute global pulmonary infiltrate. No pulmonary vascular congestion, mild cardiomegaly, degenerative changes and scoliosis of the thoracic spine. Cervical spine CT - moderate degenerative changes as described above. There is no evidence of acute fracture. Hip and pelvis CT - no acute fracture or dislocation, degenerative changes and scoliosis of the lower lumbar spine. DIAGNOSES 1. New onset A. fib with rapid ventricular response 2. History of CVA 3. Questionable altered mental status. 4. Hypotension. ASSESSMENT At this point in time, the patient . I am not sure why. His INR is 1.9. She is subtherapeutic, anticoagulation indication if the patient has a CHADS Vasc score of four. She will have Digoxin for rate control if she is hypotensive. Follow up 2-D echo and recommend neurology consult. MD ISHMAEL Cervantes/ /4:50 PM /5:43 PM
[2017-11-27] MEDS: DOCUSATE SODIUM 50 MG/SENNA 8.6 MG TAB PO SCH (21:00)
[2017-11-28] VITALS (26 sets, daily range): BP systolic 89–109; BP diastolic 50–60; PULSE 70–96; RESP 16–19; TEMP 98–98.7; O2SAT 95–99
[2017-11-28] MEDS: SODIUM CHLOR 0.9% 1000 ML INJ 1,000 ML IV SCH ×4 (00:51→22:16)
[2017-11-28] MEDS: RESP: ALBUTEROL 2.5 MG/IPRATROPIUM 0.5 MG NEB (SCH) NEB ×5 (01:24→19:49)
[2017-11-28 06:03] LABS: AUTOMATED NEUTROPHIL # 2.2 TH/MM3 (1.8-7.7); BASOPHIL % 0.3 % (0.0-2.0); HEMATOCRIT 32.8 % (35.0-46.0); HEMOGLOBIN 10.7 GM/DL (11.6-15.3); LYMPH % 28.9 % (9.0-44.0); LYMPHOCYTE # 1.1 TH/MM3 (1.0-4.8); MEAN CELL VOLUME 90.2 FL (80.0-100.0); MEAN CORPUSCULAR HEMOGLOBIN 29.6 PG (27.0-34.0); MEAN CORPUSCULAR HGB CONC 32.8 % (32.0-36.0); MEAN PLATELET VOLUME 8.5 FL (7.0-11.0); MONO % 14.1 % (0.0-8.0); MONOCYTE # 0.5 TH/MM3 (0-0.9); NEUT % 56.7 % (16.0-70.0); PLATELET COUNT 143 TH/MM3 (150-450); RED BLOOD COUNT 3.63 MIL/MM3 (4.00-5.30); RED CELL DISTRIBUTION WIDTH 14.3 % (11.6-17.2); WHITE BLOOD COUNT 3.9 TH/MM3 (4.0-11.0)
[2017-11-28 06:37] LABS: ALBUMIN 2.4 GM/DL (3.4-5.0); ALKALINE PHOSPHATASE 40 U/L (45-117); ALT (GPT) 20 U/L (10-53); AST (GOT) 41 U/L (15-37); BLOOD UREA NITROGEN 13 MG/DL (7-18); CHLORIDE 107 MEQ/L (98-107); CREATININE 0.97 MG/DL (0.50-1.00); DIGOXIN 0.9 NG/ML (0.8-2.0); GLOMERULAR FILTRATION RATE 55 ML/MIN (>89); GLUCOSE,RANDOM 84 MG/DL (74-106); SODIUM (NA) 142 MEQ/L (136-145); TOTAL BILIRUBIN ADULT 0.2 MG/DL (0.2-1.0); TOTAL PROTEIN 5.7 GM/DL (6.4-8.2)
[2017-11-28] MEDS: DOCUSATE SODIUM 50 MG/SENNA 8.6 MG TAB PO SCH ×2 (09:00→20:46)
--- NOTE | 2017-11-28 10:46 | MB ---
cc: KORI WRIGHT MD PHD DATE OF CONSULTATION: 11/28/2017 REASON FOR CONSULTATION: Mental status change. HISTORY OF PRESENT ILLNESS Ms. Smith is a 77 year-old woman who has a history of previous stroke. Yesterday she states she was sitting on the edge of the bed. The next thing she knew she was lying on the floor for an unknown period of time. She was found by her . She was confused afterwards. It is unknown how long she was down for but no more than an hour. She was found to be in atrial fibrillation as well. PAST MEDICAL HISTORY: 1. History of previous stroke. 2. She has a history of depression. 3. Arthritis. 4. Hearing loss. 5. Mastoidectomy. 6. Hypertension. MEDICATIONS AT HOME 1. ProAir 2. Protonix. 3. Risperdal. 4. Coumadin. CURRENT MEDICATIONS: In the hospital: 1. Albuterol 2. Senna. 3. Lovenox 40 milligrams subcu daily. 4. Tylenol. 5. Zofran. 6. Narcan. 7. Senokot. 8. Dulcolax. 9. Lactulose. NEUROLOGICAL EXAMINATION: VITAL SIGNS: Blood pressure 97/50, pulse 72, respiratory rate 16, temperature 98.6 degrees. Higher cortical functions, she is alert. Speech is fluent. She follows commands. Cranial nerves intact. Motor exam: No focal deficit. She has no drift. Reflexes symmetric. IMAGING STUDIES: CT of the brain, old right MCA infarction with encephalomalacia involving the right temporal and parietal lobes and ex vacuo dilatation of the right lateral ventricle. No acute changes identified. No hemorrhages seen. CT cervical spine shows moderate degenerative changes. No evidence of fracture. Chest x-ray: No acute change, mild cardiomegaly. LABORATORY DATA: White count 3900, hemoglobin 10.7, hematocrit 32% platelet count 143,000, PT 19.7, INR 1.9, APTT 37.8. Sodium is 142, potassium 3.7, chloride 107, BUN is 13, creatinine 0.97. GFR is 55, glucose 84. Calcium 8, AST 41, ALT 20. Dig level 0.9. Urinalysis, pH is 5.5, specific gravity 1.027, 2 WBCs identified. Negative leukocyte esterase. EKG: Atrial fibrillation with RVR. IMPRESSION Episode of probable loss of consciousness. Differential would include focal seizure, rule out acute stroke. Atrial fibrillation. RECOMMENDATIONS: Continue anticoagulation. Recommend MRI of the brain to rule out acute stroke, also EEG to assess for possible seizure. Would recommend starting Keppra empirically for possible seizure. Also check carotid ultrasound. MD LIBORIO Chan/KAILEE /10:06 AM /10:19 AM
[2017-11-28] MEDS: levETIRAcetam 500 MG TAB PO SCH ×2 (11:00→20:46)
--- NOTE | 2017-11-28 12:20 | PD.CARD.PN ---
Subjective Subjective Remarks remains difficult to arouse, getting carotid us Objective Medications Current Medications Medications (Trade) Dose Ordered Sig/Melo Route Start Time Stop Time Status Last Admin (NS Flush) 2 ml UNSCH PRN IV FLUSH 11/27/17 12:15 Sodium Chloride 1,000 ml @ 100 mls/hr Q10H IV 11/27/17 14:51 11/28/17 12:18 (Tylenol) 650 mg Q4H PRN PO 11/27/17 15:00 (Zofran Inj) 4 mg Q6H PRN IVP 11/27/17 15:00 (Lovenox Inj) 40 mg Q24H SQ 11/27/17 16:00 11/27/17 16:59 (Narcan Inj) 0.4 mg UNSCH PRN IV PUSH 11/27/17 15:00 (Emili-Colace) 1 tab BID PO 11/27/17 21:00 11/28/17 09:00 (Milk Of Magnesia Liq) 30 ml Q12H PRN PO 11/27/17 15:00 (Senokot) 17.2 mg Q12H PRN PO 11/27/17 15:00 (Dulcolax Supp) 10 mg DAILY PRN RECTAL 11/27/17 15:00 (Lactulose Liq) 30 ml DAILY PRN PO 11/27/17 15:00 (Duoneb Neb) 1 ampule QID NEB NEB 11/28/17 00:45 11/28/17 12:12 (Keppra) 500 mg Q12HR PO 11/28/17 11:00 11/28/17 11:00 (Coumadin) 4 mg DAILY@16 PO 11/28/17 16:00 Vital Signs / I&O Vital Signs Date Time Temp Pulse Resp B/P (MAP) Pulse Ox O2 Delivery O2 Flow Rate FiO2 11/28/17 10:00 78 11/28/17 09:00 79 11/28/17 08:37 95 Nasal Cannula 2.00 11/28/17 08:00 75 11/28/17 07:00 72 11/28/17 07:00 98.6 72 16 97/50 (66) 97 11/28/17 06:01 72 11/28/17 05:00 76 11/28/17 04:04 74 11/28/17 03:02 77 11/28/17 03:01 98.7 73 93/52 (66) 99 11/28/17 02:06 96 11/28/17 01:00 84 11/28/17 00:00 74 11/27/17 23:43 98.9 91 99/58 (72) 96 11/27/17 23:00 86 11/27/17 22:00 84 11/27/17 21:27 98 Nasal Cannula 2.00 11/27/17 21:00 84 11/27/17 20:00 98 11/27/17 20:00 98.9 104 92/52 (65) 96 11/27/17 19:00 79 11/27/17 18:00 104 11/27/17 17:00 99 11/27/17 16:35 97.9 145 20 103/64 (77) 96 11/27/17 16:15 145 11/27/17 15:47 150 18 114/62 (79) 99 Nasal Cannula 2.00 11/27/17 15:04 146 104/74 11/27/17 15:02 148 110/67 11/27/17 14:19 112 18 103/62 (76) 98 Nasal Cannula 3.00 11/27/17 14:04 137 18 130/60 (83) 98 Room Air 11/27/17 13:45 146 18 138/83 (101) 97 Nasal Cannula 2.00 11/27/17 13:34 107 18 97 Nasal Cannula 2.00 I/O 11/27/17 11/27/17 11/27/17 11/28/17 11/28/17 11/28/17 07:00 15:00 23:00 07:00 15:00 23:00 Intake Total 120 ml 1240 ml Output Total 250 ml 300 ml Balance -130 ml 940 ml Intake Oral 0 ml 240 ml IV Total 120 ml 1000 ml Output Urine Total 250 ml 300 ml # Bowel Movements 0 Physical Exam GENERAL: SKIN: Warm and dry. HEAD: Normocephalic. EYES: No scleral icterus. No injection or drainage. NECK: Supple, trachea midline. No JVD or lymphadenopathy. CARDIOVASCULAR: Regular rate and rhythm without murmurs, gallops, or rubs. RESPIRATORY: Breath sounds equal bilaterally. No accessory muscle use. GASTROINTESTINAL: Abdomen soft, non-tender, nondistended. MUSCULOSKELETAL: No cyanosis, or edema. BACK: Nontender without obvious deformity. No CVA tenderness. Laboratory Laboratory Tests Test 11/27/17 13:20 11/27/17 19:31 11/28/17 04:47 White Blood Count 6.7 TH/MM3 3.9 TH/MM3 Red Blood Count 4.27 MIL/MM3 3.63 MIL/MM3 Hemoglobin 12.6 GM/DL 10.7 GM/DL Hematocrit 38.5 % 32.8 % Mean Corpuscular Volume 90.2 FL 90.2 FL Mean Corpuscular Hemoglobin 29.5 PG 29.6 PG Mean Corpuscular Hemoglobin Concent 32.7 % 32.8 % Red Cell Distribution Width 14.4 % 14.3 % Platelet Count 174 TH/MM3 143 TH/MM3 Mean Platelet Volume 8.8 FL 8.5 FL Neutrophils (%) (Auto) 57.9 % 56.7 % Lymphocytes (%) (Auto) 29.3 % 28.9 % Monocytes (%) (Auto) 12.6 % 14.1 % Eosinophils (%) (Auto) 0.0 % 0.0 % Basophils (%) (Auto) 0.2 % 0.3 % Neutrophils # (Auto) 3.9 TH/MM3 2.2 TH/MM3 Lymphocytes # (Auto) 2.0 TH/MM3 1.1 TH/MM3 Monocytes # (Auto) 0.8 TH/MM3 0.5 TH/MM3 Eosinophils # (Auto) 0.0 TH/MM3 0.0 TH/MM3 Basophils # (Auto) 0.0 TH/MM3 0.0 TH/MM3 CBC Comment DIFF FINAL DIFF FINAL Differential Comment Prothrombin Time 19.7 SEC Prothromb Time International Ratio 1.9 RATIO Activated Partial Thromboplast Time 37.8 SEC Urine Color YELLOW Urine Turbidity HAZY Urine pH 5.5 Urine Specific [place] 1.027 Urine Protein 100 mg/dL Urine Glucose (UA) NEG mg/dL Urine Ketones 10 mg/dL Urine Occult Blood SMALL Urine Nitrite NEG Urine Bilirubin NEG Urine Urobilinogen LESS THAN 2.0 MG/DL Urine Leukocyte Esterase NEG Urine RBC 1 /hpf Urine WBC 2 /hpf Urine Squamous Epithelial Cells 1 /hpf Urine Amorphous Sediment MOD Urine Bacteria FEW /hpf Urine Granular Casts 4 /lpf Urine Mucus FEW /lpf Microscopic Urinalysis Comment CATH-CULTURE IND Blood Urea Nitrogen 15 MG/DL 13 MG/DL Creatinine 1.22 MG/DL 0.97 MG/DL Random Glucose 124 MG/DL 84 MG/DL Total Protein 7.5 GM/DL 5.7 GM/DL Albumin 3.4 GM/DL 2.4 GM/DL Calcium Level 9.2 MG/DL 8.0 MG/DL Alkaline Phosphatase 53 U/L 40 U/L Aspartate Amino Transf (AST/SGOT) 51 U/L 41 U/L Alanine Aminotransferase (ALT/SGPT) 23 U/L 20 U/L Total Bilirubin 0.4 MG/DL 0.2 MG/DL Sodium Level 139 MEQ/L 142 MEQ/L Potassium Level 4.0 MEQ/L 3.7 MEQ/L Chloride Level 101 MEQ/L 107 MEQ/L Carbon Dioxide Level 29.7 MEQ/L 28.0 MEQ/L Anion Gap 8 MEQ/L 7 MEQ/L Estimat Glomerular Filtration Rate 43 ML/MIN 55 ML/MIN Troponin I 0.03 NG/ML 0.03 NG/ML Digoxin Level 0.9 NG/ML Assessment and Plan Problem List: (1) Atrial fibrillation with RVR ICD Codes: I48.91 - Unspecified atrial fibrillation Status: Acute (2) Altered mental status ICD Codes: R41.82 - Altered mental status, unspecified Status: Acute Assessment and Plan 1.) AFib - rate controlled, coumadin restarted by Dr Mitchell, f/u neuro work up and 2d echo Problem Qualifiers (1) Altered mental status: Qualified Codes: R41.82 - Altered mental status, unspecified Natahniel Zhong MD Nov 28, 2017 12:20
--- NOTE | 2017-11-28 12:35 | HHI.HP ---
History of Present Illness Service [facility] Primary Care Physician Braydon Glass DO Admission Diagnosis atrial fibrillation with RVR, altered mental status, weakness Diagnoses: (1) Frequent falls Diagnosis: Principal (2) COPD (chronic obstructive pulmonary disease) Diagnosis: Principal (3) Atrial fibrillation with RVR Diagnosis: Principal (4) Altered mental status Diagnosis: Principal (5) Decreased activities of daily living (ADL) Diagnosis: Secondary Review of Systems Constitutional: DENIES: Diaphoretic episodes, Fatigue, Fever, Weight gain, Weight loss, Chills, Dizziness, Change in appetite, Night Sweats Endocrine: DENIES: Abnorml menstrual pattern, Heat/cold intolerance, Polydipsia , Polyuria, Polyphagia Eyes: DENIES: Blurred vision, Diplopia, Eye inflammation, Eye pain, Vision loss , Photosensitivity, Double Vision Ears, nose, mouth, throat: COMPLAINS OF: Hearing loss Respiratory: COMPLAINS OF: Cough, Wheezing Cardiovascular: COMPLAINS OF: Palpitations Gastrointestinal: DENIES: Abdominal pain, Black stools, Bloody stools, Constipation, Diarrhea, Nausea, Vomiting, Difficulty Swallowing, Anorexia Genitourinary: DENIES: Abnormal vaginal bleeding, Dysmenorrhea, Dyspareunia, Sexual dysfunction, Urinary frequency, Urinary incontinence, Urgency, Hematuria , Dysuria, Nocturia, Vaginal discharge Musculoskeletal: DENIES: Joint pain, Muscle aches, Stiffness, Joint Swelling, Back pain, Neck pain Integumentary: DENIES: Abnormal pigmentation, Pruritus, Rash, Nail changes, Breast masses, Breast skin changes, Nipple discharge Neurologic: COMPLAINS OF: Abnormal gait, Localized weakness, Poor Balance Psychiatric: DENIES: Anxiety, Confusion, Mood changes, Depression, Hallucinations, Agitation, Suicidal Ideation, Homicidal Ideation, Delusions Past Family Social History Allergies: Coded Allergies: latex (Unverified Allergy, Intermediate, RASH, 07/06/17) Past Medical History H/O CVA 2007, Long H/O COPD requiring inhalers, Arthritis with chronic joint pains, HTN, Past Surgical History Mastoidectomy Reported Medications Current Medications Medications (Trade) Dose Ordered Sig/Melo Route Start Time Stop Time Status Last Admin (NS Flush) 2 ml UNSCH PRN IV FLUSH 11/27/17 12:15 Sodium Chloride 1,000 ml @ 100 mls/hr Q10H IV 11/27/17 14:51 11/28/17 12:18 (Tylenol) 650 mg Q4H PRN PO 11/27/17 15:00 (Zofran Inj) 4 mg Q6H PRN IVP 11/27/17 15:00 (Lovenox Inj) 40 mg Q24H SQ 11/27/17 16:00 11/27/17 16:59 (Narcan Inj) 0.4 mg UNSCH PRN IV PUSH 11/27/17 15:00 (Emili-Colace) 1 tab BID PO 11/27/17 21:00 11/28/17 09:00 (Milk Of Magnesia Liq) 30 ml Q12H PRN PO 11/27/17 15:00 (Senokot) 17.2 mg Q12H PRN PO 11/27/17 15:00 (Dulcolax Supp) 10 mg DAILY PRN RECTAL 11/27/17 15:00 (Lactulose Liq) 30 ml DAILY PRN PO 11/27/17 15:00 (Duoneb Neb) 1 ampule QID NEB NEB 11/28/17 00:45 11/28/17 12:12 (Keppra) 500 mg Q12HR PO 11/28/17 11:00 11/28/17 11:00 (Coumadin) 4 mg DAILY@16 PO 11/28/17 16:00 Family History Unknown family history Social History Denies Cigs and has occ glass of wine. She resides with her . Physical Exam Vital Signs Vital Signs Date Time Temp Pulse Resp B/P (MAP) Pulse Ox O2 Delivery O2 Flow Rate FiO2 11/28/17 10:00 78 11/28/17 09:00 79 11/28/17 08:37 95 Nasal Cannula 2.00 11/28/17 08:00 75 11/28/17 07:00 72 11/28/17 07:00 98.6 72 16 97/50 (66) 97 11/28/17 06:01 72 11/28/17 05:00 76 11/28/17 04:04 74 11/28/17 03:02 77 11/28/17 03:01 98.7 73 93/52 (66) 99 11/28/17 02:06 96 11/28/17 01:00 84 11/28/17 00:00 74 11/27/17 23:43 98.9 91 99/58 (72) 96 11/27/17 23:00 86 11/27/17 22:00 84 11/27/17 21:27 98 Nasal Cannula 2.00 11/27/17 21:00 84 11/27/17 20:00 98 11/27/17 20:00 98.9 104 92/52 (65) 96 11/27/17 19:00 79 11/27/17 18:00 104 11/27/17 17:00 99 11/27/17 16:35 97.9 145 20 103/64 (77) 96 11/27/17 16:15 145 11/27/17 15:47 150 18 114/62 (79) 99 Nasal Cannula 2.00 11/27/17 15:04 146 104/74 11/27/17 15:02 148 110/67 11/27/17 14:19 112 18 103/62 (76) 98 Nasal Cannula 3.00 11/27/17 14:04 137 18 130/60 (83) 98 Room Air 11/27/17 13:45 146 18 138/83 (101) 97 Nasal Cannula 2.00 11/27/17 13:34 107 18 97 Nasal Cannula 2.00 Physical Exam GENERAL: This is a well-nourished, well-developed patient, in no apparent distress. SKIN: No rashes, ecchymoses or lesions. Cool and dry. HEAD: Atraumatic. Normocephalic. No temporal or scalp tenderness. EYES: Pupils equal round and reactive. Extraocular motions intact. No scleral icterus. No injection or drainage. ENT: Nose without bleeding, purulent drainage or septal hematoma. Throat without erythema. Airway patent. Hard of hearing. NECK: Trachea midline. No JVD or lymphadenopathy. Supple, nontender, no meningeal signs. CARDIOVASCULAR: Regular rate and rhythm without murmurs, gallops, or rubs. RESPIRATORY: Expiratory wheezing noted in all lung fine. Breath sounds equal bilaterally. No rales, or rhonchi. GASTROINTESTINAL: Abdomen soft, non-tender, nondistended. No hepato-splenomegaly , or palpable masses. No guarding. MUSCULOSKELETAL: Extremities without clubbing, cyanosis, or edema. Diffuse joint tenderness, without effusion, or edema noted. No calf tenderness. NEUROLOGICAL: Awake and alert. Motor and sensory grossly within normal limits. Normal speech. Laboratory Laboratory Tests Test 11/27/17 13:20 1/6/18 19:31 11/28/17 04:47 White Blood Count 6.7 3.9 Red Blood Count 4.27 3.63 Hemoglobin 12.6 10.7 Hematocrit 38.5 32.8 Mean Corpuscular Volume 90.2 90.2 Mean Corpuscular Hemoglobin 29.5 29.6 Mean Corpuscular Hemoglobin Concent 32.7 32.8 Red Cell Distribution Width 14.4 14.3 Platelet Count 174 143 Mean Platelet Volume 8.8 8.5 Neutrophils (%) (Auto) 57.9 56.7 Lymphocytes (%) (Auto) 29.3 28.9 Monocytes (%) (Auto) 12.6 14.1 Eosinophils (%) (Auto) 0.0 0.0 Basophils (%) (Auto) 0.2 0.3 Neutrophils # (Auto) 3.9 2.2 Lymphocytes # (Auto) 2.0 1.1 Monocytes # (Auto) 0.8 0.5 Eosinophils # (Auto) 0.0 0.0 Basophils # (Auto) 0.0 0.0 CBC Comment DIFF FINAL DIFF FINAL Differential Comment Prothrombin Time 19.7 Prothromb Time International Ratio 1.9 Activated Partial Thromboplast Time 37.8 Urine Color YELLOW Urine Turbidity HAZY Urine pH 5.5 Urine Specific [place] 1.027 Urine Protein 100 Urine Glucose (UA) NEG Urine Ketones 10 Urine Occult Blood SMALL Urine Nitrite NEG Urine Bilirubin NEG Urine Urobilinogen LESS THAN 2.0 Urine Leukocyte Esterase NEG Urine RBC 1 Urine WBC 2 Urine Squamous Epithelial Cells 1 Urine Amorphous Sediment MOD Urine Bacteria FEW Urine Granular Casts 4 Urine Mucus FEW Microscopic Urinalysis Comment CATH-CULTURE IND Blood Urea Nitrogen 15 13 Creatinine 1.22 0.97 Random Glucose 124 84 Total Protein 7.5 5.7 Albumin 3.4 2.4 Calcium Level 9.2 8.0 Alkaline Phosphatase 53 40 Aspartate Amino Transf (AST/SGOT) 51 41 Alanine Aminotransferase (ALT/SGPT) 23 20 Total Bilirubin 0.4 0.2 Sodium Level 139 142 Potassium Level 4.0 3.7 Chloride Level 101 107 Carbon Dioxide Level 29.7 28.0 Anion Gap 8 7 Estimat Glomerular Filtration Rate 43 55 Troponin I 0.03 0.03 Digoxin Level 0.9 Date/Time Source Procedure Growth Status 11/27/17 13:20 Urine Catheterized Urine Urine Culture Pending Received Result Diagram: 11/28/17 0447 11/28/17 0447 Imaging Last Impressions Hip and Pelvis X-Ray 11/27/17 0000 Signed Impressions: Service Date/Time: Monday, November 27, 2017 12:19 - CONCLUSION: 1. No acute fracture or dislocation. 2. Degenerative changes and scoliosis of the lower lumbar spine. Kameron Elizabeth MD Head CT 11/27/17 0000 Signed Impressions: Service Date/Time: Monday, November 27, 2017 12:40 - CONCLUSION: 1. Old right MCA infarct with associated encephalomalacia involving the right temporal and parietal lobes and ex vacuo dilatation of the right lateral ventricle. 2. No acute infarct, acute hemorrhage, mass effect or extra-axial fluid collections. Kameron Elizabeth MD Chest X-Ray 11/27/17 0000 Signed Impressions: Service Date/Time: Monday, November 27, 2017 12:25 - CONCLUSION: 1. No acute focal pulmonary infiltrate or pulmonary vascular congestion. 2. Mild cardiomegaly. 3. Degenerative changes and scoliosis of the thoracic spine. Kameron Elizabeth MD Cervical Spine CT 11/27/17 0000 Signed Impressions: Service Date/Time: Monday, November 27, 2017 12:40 - CONCLUSION: 1. Moderate degenerative changes as described above. There is no evidence of acute fracture. Marcos Worrell MD Course HR now under better control. INR slightly low and repeat is pending. Cont lovenox until INR > 2. Will F/U Cards recommendations and request Pulm consult today. Caprini VTE Risk Assessment Caprini VTE Risk Assessment: Mod/High Risk (score >= 2) Caprini Risk Assessment Model Point Value = 1 Point Value = 2 Point Value = 3 Point Value = 5 Age 41-60 Minor surgery BMI > 25 kg/m2 Swollen legs Varicose veins or History of unexplained or recurrent spontaneous Oral contraceptives or hormone replacement Sepsis (< 1 month) Serious lung disease, including pneumonia (< 1 month) Abnormal pulmonary function Acute myocardial infarction Congestive heart failure (< 1 month) History of inflammatory bowel disease Medical patient at bed rest Age 61-74 Arthroscopic surgery Major open surgery (> 45 min) Laparoscopic surgery (> 45 min) Malignancy Confined to bed (> 72 hours) Immobilizing plaster cast Central venous access Age >= 75 History of VTE Family history of VTE Factor V Leiden Prothrombin [id number] Lupus anticoagulant Anticardiolipin antibodies Elevated serum homocysteine Heparin-induced thrombocytopenia Other congenital or acquired thrombophilia Stroke (< 1 month) Elective arthroplasty Hip, pelvis, or leg fracture Acute spinal cord injury (< 1 month) Prophylaxis Regimen Total Risk Factor Score Risk Level Prophylaxis Regimen 0-1 Low Early ambulation 2 Moderate Order ONE of the following: *Sequential Compression Device (SCD) *Heparin 5000 units SQ BID 3-4 Higher Order ONE of the following medications: *Heparin 5000 units SQ TID *Enoxaparin/Lovenox 40 mg SQ daily (WT < 150 kg, CrCl > 30 mL/min) *Enoxaparin/Lovenox 30 mg SQ daily (WT < 150 kg, CrCl > 10-29 mL/min) *Enoxaparin/Lovenox 30 mg SQ BID (WT < 150 kg, CrCl > 30 mL/min) AND/OR *Sequential Compression Device (SCD) 5 or more Highest Order ONE of the following medications: *Heparin 5000 units SQ TID (Preferred with Epidurals) *Enoxaparin/Lovenox 40 mg SQ daily (WT < 150 kg, CrCl > 30 mL/min) *Enoxaparin/Lovenox 30 mg SQ daily (WT < 150 kg, CrCl > 10-29 mL/min) *Enoxaparin/Lovenox 30 mg SQ BID (WT < 150 kg, CrCl > 30 mL/min) AND *Sequential Compression Device (SCD) Problem Qualifiers (1) COPD (chronic obstructive pulmonary disease): Qualified Codes: J44.1 - Chronic obstructive pulmonary disease with (acute) exacerbation (2) Altered mental status: Qualified Codes: R41.82 - Altered mental status, unspecified Fabrice William Nov 28, 2017 12:35
--- NOTE | 2017-11-28 13:25 | RADRPT ---
EXAM DATE/TIME: 11/28/2017 11:20 [facility] COMPARISON: No previous studies available for comparison. INDICATIONS : Syncope. MEDICAL HISTORY : Hypercholesterolemia. Hypertension. Gastroesophageal reflux disease. CVA. Arthritis. SURGICAL HISTORY : Mastoidectomy. ENCOUNTER: Initial ACUITY: 1 day PAIN SCORE: 110 LOCATION: Bilateral neck PEAK SYSTOLIC VELOCITIES (cm/sec): ICA/CCA RATIO: Right: 1.4 Left: 1.4 ICA: Right: 111 Left: 145 CCA: Right: 79 Left: 100 ECA: Right: 126 Left: 180 VERTEBRAL: Right: 52 antegrade Left: 79 antegrade Elevated flow velocities and ICA/CCA ratios have been found to correlate with increased degrees of vessel stenosis, calculated as percentage of diameter relative to a normal segment of distal ICA/CCA FINDINGS: Ultrasound of the carotid arteries was performed bilaterally using real-time Doppler and color Dopple r imaging. Examination of the right carotid artery demonstrates mild fibrous plaque within the bifurcation. No w aveform abnormalities are identified and no spectral broadening is seen. Examination of the left domínguez tid artery demonstrates mild fibrous plaque within the bulb. No waveform abnormalities are identified and no spectral broadening is seen. There is antegrade flow in both vertebral arteries. CONCLUSION: No evidence of hemodynamically significant lesion. Marcos oWrrell MD on November 28, 2017 at 13:16 Board Certified Radiologist. This report was verified electronically.
--- NOTE | 2017-11-28 13:41 | EKG ---
Date Performed: 11/27/2017 Time Performed: 13:43:26 PTAGE: 77 years EKG: ATRIAL FIBRILLATION WITH RAPID VENTRICULAR RESPONSE NONSPECIFIC ST & T-WAVE ABNORMALITY ABN ORMAL RHYTHM ECG Compared to PREVIOUS TRACING , Sinus rhythm with short DE interval has been replaced by atrial fibrillation with rapid ventricular response. ST- T changes are new. Clinical correlation recommended. PREVIOUS TRACIN11/12/2011 21.02 DOCTOR: [place] Angela Interpretating Date/Time 11/28/2017 13:40:32
[2017-11-28] MEDS: ENOXAPARIN SODIUM 40 MG/0.4 ML SYRINGE SQ SCH (16:05)
[2017-11-28] MEDS: WARFARIN SOD 4 MG TAB PO SCH (16:06)
[2017-11-28] MEDS: ACETAMINOPHEN 325 MG TAB PO PRN ×2 (16:10→20:46)
[2017-11-28] MEDS ORDERED: GADODIAMIDE PF 287 MG/ML 20 ML VIAL (for RAD MRI) IVCONTRAST ONE (17:14)
--- NOTE | 2017-11-28 18:08 | RADRPT ---
EXAM DATE/TIME: 11/28/2017 16:52 [facility] COMPARISON: CT BRAIN W/O CONTRAST, November 27, 2017, 12:40. INDICATIONS : Altered mental status. CONTRAST: 18 cc Omniscan (gadodiamide) IV MEDICAL HISTORY : Hypertension. CVA. SURGICAL HISTORY : Mastiodectomy. ENCOUNTER: Initial ACUITY: 1 day PAIN SCORE: 0/10 LOCATION: cranial TECHNIQUE: Multiplanar, multisequence MRI of the brain was performed both prior to and following the administrat ion of paramagnetic contrast. FINDINGS: A moderate-sized area of encephalomalacia is again identified in the right temporal lobe. Right basal ganglia lacunar infarct is noted. There is an acute infarct, hemorrhage, mass or enhancing lesions. Lateral ventricles are moderately enlarged. CONCLUSION: 1. Right temporal lobe encephalomalacia consistent with old infarct. 2. Old right basal ganglia infarct. 3. No evidence of acute infarct, hemorrhage, mass, edema or enhancing lesions Omid Giordano MD on November 28, 2017 at 18:04 Board Certified Radiologist. This report was verified electronically.
[2017-11-29] VITALS (26 sets, daily range): BP systolic 109–140; BP diastolic 53–67; PULSE 62–97; RESP 17–20; TEMP 98.1–98.8; O2SAT 93–99
[2017-11-29 04:35] LABS: INTERNATIONAL NORMALIZED RATIO 2.2 RATIO
--- NOTE | 2017-11-29 05:20 | MG ---
cc: KORI WRIGHT Lab No: 18-16 Date: 11/28/2017 Age: Sex: F Race: TECHNIQUE A 17-channel EEG. DESCRIPTION The background rhythm is a symmetrical alpha rhythm, frequency 8 Hz, amplitude 20 microvolts. During drowsiness there is slowing in the theta range. There is quite a bit of muscle artifact. There are no epileptiform discharges. Photic results in a normal driving response. INTERPRETATION Normal EEG. MD LIBORIO Chan/ASIA /8:49 PM /5:03 AM
[2017-11-29] MEDS: ACETAMINOPHEN 325 MG TAB PO PRN (07:16)
[2017-11-29] MEDS: RESP: ALBUTEROL 2.5 MG/IPRATROPIUM 0.5 MG NEB (SCH) NEB ×4 (07:47→20:47)
[2017-11-29] MEDS: DOCUSATE SODIUM 50 MG/SENNA 8.6 MG TAB PO SCH ×2 (08:25→20:11)
[2017-11-29] MEDS: levETIRAcetam 500 MG TAB PO SCH ×2 (08:35→20:11)
[2017-11-29] MEDS: ACETAMINOPHEN/CODEINE 300 MG/30 MG TAB PO PRN ×3 (08:36→20:11)
--- NOTE | 2017-11-29 09:47 | RADRPT ---
EXAM DATE/TIME: 11/29/2017 08:40 [facility] COMPARISON: No previous studies available for comparison. INDICATIONS : Left leg pain. MEDICAL HISTORY : Hypercholesterolemia. Hypertension. Gastroesophageal reflux disease. CVA. Arthritis. SURGICAL HISTORY : Mastoidectomy. ENCOUNTER: Initial ACUITY: 1 day PAIN SCORE: 3/10 LOCATION: Left leg. TECHNIQUE: Venous ultrasound of the leg was performed from the inguinal ligament to the proximal calf. Real-marco antonio e, color Doppler and spectral tracing, compression and augmentation techniques were used. FINDINGS: There is normal compressibility of the deep venous system from the inguinal region to the proximal ca lf. No echogenic clot is seen in the lumen of the common femoral, femoral, popliteal, and posterior tibial veins. There is a normal response of the venous system to proximal and distal augmentation an d respiration. CONCLUSION: Negative for deep venous thrombosis. Yvan Jung MD FACR on November 29, 2017 at 9:44 Board Certified Radiologist. This report was verified electronically.
--- NOTE | 2017-11-29 13:09 | HHI.PR ---
Subjective Remarks pt co severe pain left leg no bony deformity or skin disruption will ck doppler and image leg knee ankle Objective Vital Signs Date Time Temp Pulse Resp B/P (MAP) Pulse Ox O2 Delivery O2 Flow Rate FiO2 11/29/17 11:00 98.8 97 20 109/54 (72) 97 11/29/17 11:00 80 11/29/17 10:00 80 11/29/17 09:00 82 11/29/17 08:00 82 11/29/17 07:49 97 Nasal Cannula 2.00 11/29/17 07:00 80 11/29/17 07:00 98.6 93 20 140/63 (88) 93 11/29/17 06:03 79 11/29/17 05:31 75 11/29/17 04:19 78 11/29/17 03:53 83 11/29/17 03:53 98.1 80 17 119/58 (78) 98 11/29/17 02:44 71 11/29/17 01:30 70 11/29/17 00:11 62 11/28/17 23:48 76 11/28/17 23:48 98.0 76 18 91/52 (65) 98 11/28/17 22:46 73 11/28/17 21:00 75 11/28/17 20:00 80 11/28/17 19:47 Nasal Cannula 2.00 11/28/17 19:00 98.3 79 19 89/55 (66) 98 11/28/17 19:00 84 11/28/17 18:00 76 11/28/17 17:40 16 11/28/17 17:00 80 11/28/17 16:00 76 11/28/17 15:00 80 11/28/17 15:00 98.0 80 16 109/60 (76) 99 11/28/17 14:00 72 I/O 11/28/17 11/28/17 11/28/17 11/29/17 11/29/17 11/29/17 07:00 15:00 23:00 07:00 15:00 23:00 Intake Total 1240 ml 200 ml 660 ml Output Total 300 ml 400 ml 750 ml Balance 940 ml -200 ml -90 ml Intake Oral 240 ml 200 ml 660 ml IV Total 1000 ml Output Urine Total 300 ml 400 ml 750 ml # Bowel Movements 1 1 Result Diagram: 11/28/17 0447 11/28/17 0447 Imaging Last Impressions Lower Extremity Ultrasound 11/29/17 0000 Signed Impressions: Service Date/Time: Wednesday, November 29, 2017 08:40 - CONCLUSION: Negative for deep venous thrombosis. Yvan Jung MD FACR Carotid Artery Ultrasound 11/28/17 0000 Signed Impressions: Service Date/Time: Tuesday, November 28, 2017 11:20 - CONCLUSION: No evidence of hemodynamically significant lesion. Marcos Worrell MD Brain MRI 11/28/17 0000 Signed Impressions: Service Date/Time: Tuesday, November 28, 2017 16:52 - CONCLUSION: 1. Right temporal lobe encephalomalacia consistent with old infarct. 2. Old right basal ganglia infarct. 3. No evidence of acute infarct, hemorrhage, mass, edema or enhancing lesions Omid Giordano MD Hip and Pelvis X-Ray 11/27/17 0000 Signed Impressions: Service Date/Time: Monday, November 27, 2017 12:19 - CONCLUSION: 1. No acute fracture or dislocation. 2. Degenerative changes and scoliosis of the lower lumbar spine. Kameron Elizabeth MD Head CT 11/27/17 0000 Signed Impressions: Service Date/Time: Monday, November 27, 2017 12:40 - CONCLUSION: 1. Old right MCA infarct with associated encephalomalacia involving the right temporal and parietal lobes and ex vacuo dilatation of the right lateral ventricle. 2. No acute infarct, acute hemorrhage, mass effect or extra-axial fluid collections. Kameron Elizabeth MD Chest X-Ray 11/27/17 0000 Signed Impressions: Service Date/Time: Monday, November 27, 2017 12:25 - CONCLUSION: 1. No acute focal pulmonary infiltrate or pulmonary vascular congestion. 2. Mild cardiomegaly. 3. Degenerative changes and scoliosis of the thoracic spine. Kameron Elizabeth MD Cervical Spine CT 11/27/17 0000 Signed Impressions: Service Date/Time: Monday, November 27, 2017 12:40 - CONCLUSION: 1. Moderate degenerative changes as described above. There is no evidence of acute fracture. Marcos Worrell MD Objective Remarks GENERAL: Well-nourished, well-developed patient. SKIN: Warm and dry. HEAD: Normocephalic. EYES: No scleral icterus. No injection or drainage. NECK: Supple, trachea midline. No JVD or lymphadenopathy. CARDIOVASCULAR: Regular rate and rhythm without murmurs, gallops, or rubs.rate now controlled RESPIRATORY: Breath sounds equal bilaterally. No accessory muscle use. GASTROINTESTINAL: Abdomen soft, non-tender, nondistended. EXTREMITIES: No cyanosis, or edema pain to palpation r leg and calf NEUROLOGICAL: Awake, alert, Non-focal. Medications and IVs Inpatient Medications Acetaminophen (Tylenol) 650 mg Q4H PRN PO TEMP > 100.4 Last administered on 11/29at 07:16; Start 11/27/17 at 15:00 Acetaminophen/ Codeine Phosphate (Tylenol-Codeine #3) 1 tab Q4H PRN PO PAIN SCALE 4 TO 10 Last administered on 11/29/17at 08:36; Start 11/29/17 at 08:00 Albuterol/ Ipratropium (Duoneb Neb) 1 ampule QID NEB NEB Last administered on 11/29/17 11:38; Start 11/28/17 at 00:45 Bisacodyl (Dulcolax Supp) 10 mg DAILY PRN RECTAL SEVERE CONSITIPATION; Start at 15:00 Digoxin (Lanoxin Inj) 0.25 mg ONCE ONCE IV PUSH Last administered on 11/27/17at 17:54; Start 11/27/17 at 17:15; Stop 11/27/17 at 17:16; Status DC Diltiazem HCl (Cardizem Inj) 30 mg ONCE ONCE IV Last administered on 11/27/17at 14:18; Start 11/27/17 at 14:15; Stop 11/27/17 at 14:16; Status DC Diltiazem HCl 125 mg/Sodium Chloride 125 ml @ 5 mls/hr TITRATE PRN IV tachycardia Last administered on 11/27/17at 15:02; Start 11/27/17 at 14:45; Stop at 00:39; Status DC Enoxaparin Sodium (Lovenox Inj) 40 mg Q24H SQ Last administered on 11/28/17at 16: 05; Start 11/27/17 at 16:00 Lactulose (Lactulose Liq) 30 ml DAILY PRN PO SEVERE CONSITIPATION; Start at 15:00 Levetriacetam (Keppra) 500 mg Q12HR PO Last administered on 11/29/17at 08:35; Start 11/28/17 at 11:00 Magnesium Hydroxide (Milk Of Magnyvonne Liq) 30 ml Q12H PRN PO Mild constipation ; Start 11/27/17 at 15:00 Naloxone HCl (Narcan Inj) 0.4 mg UNSCH PRN IV PUSH SEE LABEL COMMENTS; Start at 15:00 Nystatin (Mycostatin Powder) 1 applic ONCE ONCE TOPICAL Last administered on at 15:04; Start 11/27/17 at 14:45; Stop 11/27/17 at 14:46; Status DC Ondansetron HCl (Zofran Inj) 4 mg Q6H PRN IVP NAUSEA OR VOMITING; Start at 15:00 Patient Medication Teaching (Coumadin Booklet) 1 ONCE ONCE .XX Last administered on 11/28/17at 11:52; Start 11/28/17 at 11:00; Stop 11/28/17 at 11:01; Status DC Senna/Docusate Sodium (Emili-Colace) 1 tab BID PO Last administered on 11/28/17at 09:00; Start 11/27/17 at 21:00 Sennosides (Senokot) 17.2 mg Q12H PRN PO Moderate constipation; Start 11/27/17 at 15:00 Sodium Chloride 1,000 ml @ 100 mls/hr Q10H IV Last administered on 11/28/17at 12 :18; Start 11/27/17 at 14:51 Sodium Chloride (NS Flush) 2 ml UNSCH PRN IV FLUSH FLUSH AFTER USING IV ACCESS ; Start 11/27/17 at 12:15 Warfarin Sodium (Coumadin) 4 mg DAILY@16 PO Last administered on 11/28/17at 16:06 ; Start 11/28/17 at 16:00 Assessment and Plan Problem List: (1) Altered mental status ICD Codes: R41.82 - Altered mental status, unspecified Status: Acute Plan: neurology consulted pt will need assistance at discharge (2) Atrial fibrillation with RVR ICD Codes: I48.91 - Unspecified atrial fibrillation Status: Acute Plan: rate now controlled (3) Leg pain, left ICD Codes: M79.605 - Pain in left leg Plan: will image us doppler and xray Assessment and Plan afib rvr with altered mental status and left leg pain Discharge Planning may need SNF Problem Qualifiers (1) Altered mental status: Qualified Codes: R41.82 - Altered mental status, unspecified Braydon Glass DO Nov 29, 2017 13:09
--- NOTE | 2017-11-29 13:53 | RADRPT ---
EXAM DATE/TIME: 11/29/2017 12:44 [facility] COMPARISON: No previous studies available for comparison. INDICATIONS : Left ankle pain, Limited range of motion MEDICAL HISTORY : Hypercholesterolemia. Hypertension. Gastroesophageal reflux disease. CVA.Arthritis. SURGICAL HISTORY : Mastoidectomy. ENCOUNTER: Initial ACUITY: 3 days PAIN SCORE: 10/10 LOCATION: Left ankle FINDINGS: As the small fracture distal fibula extending to the tibial plafond. Tibia is intact. Talar dome is intact. Bones are diffuse osteopenic vascular calcifications. CONCLUSION: Spinal fracture fibula as described above. Yvan Jung MD FACR on November 29, 2017 at 13:50 Board Certified Radiologist. This report was verified electronically.
--- NOTE | 2017-11-29 14:47 | RADRPT ---
EXAM DATE/TIME: 11/29/2017 12:47 [facility] COMPARISON: No previous studies available for comparison. INDICATIONS : Left knee pain, MEDICAL HISTORY : Hypercholesterolemia. Hypertension. Gastroesophageal reflux disease. CVA. arthritis SURGICAL HISTORY : Mastoidectomy. ENCOUNTER: Initial ACUITY: 3 days PAIN SCORE: 10/10 LOCATION: Left knee FINDINGS: There is significant degenerative arthritis in the knee with loss of cartilage in both the medial and lateral compartment. Trace joint effusion is evident. No fracture CONCLUSION: Degenerative changes, trace joint effusion, no fracture Yvan Jung MD FACR on November 29, 2017 at 14:44 Board Certified Radiologist. This report was verified electronically.
--- NOTE | 2017-11-29 15:06 | PD.CARD.PN ---
Subjective Subjective Remarks more lucid in nad Objective Medications Current Medications Medications (Trade) Dose Ordered Sig/Melo Route Start Time Stop Time Status Last Admin (NS Flush) 2 ml UNSCH PRN IV FLUSH 11/27/17 12:15 Sodium Chloride 1,000 ml @ 100 mls/hr Q10H IV 11/27/17 14:51 11/28/17 12:18 (Tylenol) 650 mg Q4H PRN PO 11/27/17 15:00 11/29/17 07:16 (Zofran Inj) 4 mg Q6H PRN IVP 11/27/17 15:00 (Lovenox Inj) 40 mg Q24H SQ 11/27/17 16:00 11/28/17 16:05 (Narcan Inj) 0.4 mg UNSCH PRN IV PUSH 11/27/17 15:00 (Emili-Colace) 1 tab BID PO 11/27/17 21:00 11/28/17 09:00 (Milk Of Magnesia Liq) 30 ml Q12H PRN PO 11/27/17 15:00 (Senokot) 17.2 mg Q12H PRN PO 11/27/17 15:00 (Dulcolax Supp) 10 mg DAILY PRN RECTAL 11/27/17 15:00 (Lactulose Liq) 30 ml DAILY PRN PO 11/27/17 15:00 (Duoneb Neb) 1 ampule QID NEB NEB 11/28/17 00:45 11/29/17 11:38 (Keppra) 500 mg Q12HR PO 11/28/17 11:00 11/29/17 08:35 (Coumadin) 4 mg DAILY@16 PO 11/28/17 16:00 11/28/17 16:06 (Tylenol-Codeine #3) 1 tab Q4H PRN PO 11/29/17 08:00 11/29/17 14:14 Vital Signs / I&O Vital Signs Date Time Temp Pulse Resp B/P (MAP) Pulse Ox O2 Delivery O2 Flow Rate FiO2 11/29/17 14:00 72 11/29/17 13:00 72 11/29/17 12:00 72 11/29/17 11:00 98.8 97 20 109/54 (72) 97 11/29/17 11:00 80 11/29/17 10:00 80 11/29/17 09:00 82 11/29/17 08:00 82 11/29/17 07:49 97 Nasal Cannula 2.00 11/29/17 07:00 80 11/29/17 07:00 98.6 93 20 140/63 (88) 93 11/29/17 06:03 79 11/29/17 05:31 75 11/29/17 04:19 78 11/29/17 03:53 83 11/29/17 03:53 98.1 80 17 119/58 (78) 98 11/29/17 02:44 71 11/29/17 01:30 70 11/29/17 00:11 62 11/28/17 23:48 76 11/28/17 23:48 98.0 76 18 91/52 (65) 98 11/28/17 22:46 73 11/28/17 21:00 75 11/28/17 20:00 80 11/28/17 19:47 Nasal Cannula 2.00 11/28/17 19:00 98.3 79 19 89/55 (66) 98 11/28/17 19:00 84 11/28/17 18:00 76 11/28/17 17:40 16 11/28/17 17:00 80 11/28/17 16:00 76 I/O 11/28/17 11/28/17 11/28/17 11/29/17 11/29/17 11/29/17 07:00 15:00 23:00 07:00 15:00 23:00 Intake Total 1240 ml 200 ml 660 ml Output Total 300 ml 400 ml 750 ml Balance 940 ml -200 ml -90 ml Intake Oral 240 ml 200 ml 660 ml IV Total 1000 ml Output Urine Total 300 ml 400 ml 750 ml # Bowel Movements 1 1 Physical Exam GENERAL: SKIN: Warm and dry. HEAD: Normocephalic. EYES: No scleral icterus. No injection or drainage. NECK: Supple, trachea midline. No JVD or lymphadenopathy. CARDIOVASCULAR: Regular rate and rhythm without murmurs, gallops, or rubs. RESPIRATORY: Breath sounds equal bilaterally. No accessory muscle use. GASTROINTESTINAL: Abdomen soft, non-tender, nondistended. MUSCULOSKELETAL: No cyanosis, or edema. BACK: Nontender without obvious deformity. No CVA tenderness. Laboratory Laboratory Tests Test 11/29/17 03:50 11/29/17 10:32 Prothrombin Time 22.0 SEC Prothromb Time International Ratio 2.2 RATIO Uric Acid 5.1 MG/DL Imaging Last 24 hours Impressions Lower Extremity Ultrasound 11/29/17 0000 Signed Impressions: Service Date/Time: Wednesday, November 29, 2017 08:40 - CONCLUSION: Negative for deep venous thrombosis. Yvan Jung MD FACR Knee X-Ray 11/29/17 0000 Signed Impressions: Service Date/Time: Wednesday, November 29, 2017 12:47 - CONCLUSION: Degenerative changes, trace joint effusion, no fracture Yvan Jung MD FACR Ankle X-Ray 11/29/17 0000 Signed Impressions: Service Date/Time: Wednesday, November 29, 2017 12:44 - CONCLUSION: Spinal fracture fibula as described above. Yvan Jung MD FACR Assessment and Plan Problem List: (1) Atrial fibrillation with RVR ICD Codes: I48.91 - Unspecified atrial fibrillation Status: Acute (2) Altered mental status ICD Codes: R41.82 - Altered mental status, unspecified Status: Acute Assessment and Plan 1.) AFib - rate controlled, coumadin restarted by Dr Mitchell, f/u neuro work up and 2d echo, inr=2.2 today, dc ayo d/w nurse at bedside Problem Qualifiers (1) Altered mental status: Qualified Codes: R41.82 - Altered mental status, unspecified Nathaniel Zhong MD Nov 29, 2017 15:06
[2017-11-29] MEDS: SODIUM CHLOR 0.9% 1000 ML INJ 1,000 ML IV SCH (15:45)
[2017-11-29] MEDS: WARFARIN SOD 4 MG TAB PO SCH (15:58)
--- NOTE | 2017-11-29 20:51 | HHI.PR ---
Review/Management Diagnosis Episode she had was likely a seizure Plan continue keppra 500 mg bid. Diagnosis/Plan: Subjective Subjective Comments No acute events reported Tolerating keppra well Active Medications Current Medications Medications (Trade) Dose Ordered Sig/Melo Route Start Time Stop Time Status Last Admin (NS Flush) 2 ml UNSCH PRN IV FLUSH 11/27/17 12:15 Sodium Chloride 1,000 ml @ 100 mls/hr Q10H IV 11/27/17 14:51 11/28/17 12:18 (Tylenol) 650 mg Q4H PRN PO 11/27/17 15:00 11/29/17 07:16 (Zofran Inj) 4 mg Q6H PRN IVP 11/27/17 15:00 (Narcan Inj) 0.4 mg UNSCH PRN IV PUSH 11/27/17 15:00 (Emili-Colace) 1 tab BID PO 11/27/17 21:00 11/29/17 20:11 (Milk Of Magnesia Liq) 30 ml Q12H PRN PO 11/27/17 15:00 (Senokot) 17.2 mg Q12H PRN PO 11/27/17 15:00 (Dulcolax Supp) 10 mg DAILY PRN RECTAL 11/27/17 15:00 (Lactulose Liq) 30 ml DAILY PRN PO 11/27/17 15:00 (Duoneb Neb) 1 ampule QID NEB NEB 11/28/17 00:45 11/29/17 20:47 (Keppra) 500 mg Q12HR PO 11/28/17 11:00 11/29/17 20:11 (Coumadin) 4 mg DAILY@16 PO 11/28/17 16:00 11/29/17 15:58 (Tylenol-Codeine #3) 1 tab Q4H PRN PO 11/29/17 08:00 11/29/17 20:11 (SoluMEDROL INJ) 40 mg Q8HR IV PUSH 11/29/17 22:00 Allergies Allergies Coded Allergies latex (Unverified Allergy, Intermediate, RASH, 07/06/17) Exam I&O / VS 11/29/17 11/29/17 11/30/17 14:59 22:59 06:59 Intake Total 720 ml Output Total 500 ml Balance 220 ml Intake Oral 720 ml Output Urine Total 500 ml # Bowel Movements 1 Vital Signs Date Time Temp Pulse Resp B/P (MAP) Pulse Ox O2 Delivery O2 Flow Rate FiO2 11/29/17 18:00 82 11/29/17 17:00 82 11/29/17 16:00 72 11/29/17 15:00 72 11/29/17 15:00 98.2 77 20 117/53 (74) 98 11/29/17 14:00 72 11/29/17 13:00 72 11/29/17 12:00 72 11/29/17 11:00 98.8 97 20 109/54 (72) 97 11/29/17 11:00 80 11/29/17 10:00 80 11/29/17 09:00 82 11/29/17 08:00 82 11/29/17 07:49 97 Nasal Cannula 2.00 11/29/17 07:00 80 11/29/17 07:00 98.6 93 20 140/63 (88) 93 11/29/17 06:03 79 11/29/17 05:31 75 11/29/17 04:19 78 11/29/17 03:53 83 11/29/17 03:53 98.1 80 17 119/58 (78) 98 11/29/17 02:44 71 11/29/17 01:30 70 11/29/17 00:11 62 11/28/17 23:48 76 11/28/17 23:48 98.0 76 18 91/52 (65) 98 11/28/17 22:46 73 11/28/17 21:00 75 Exam Comments alert, speech normal, follow commands Cn intact Objective Radiology Results MRI--no new infarction. Encephalomalacia right temporal lobe, old right basal ganglia stroke Micro and Labs Laboratory Tests Test 11/29/17 03:50 11/29/17 10:32 11/29/17 19:11 Prothrombin Time 22.0 Prothromb Time International Ratio 2.2 Uric Acid 5.1 Date/Time Source Procedure Growth Status 11/27/17 13:20 Urine Catheterized Urine Urine Culture - Final NO GROWTH IN 48 HOURS. Complete Diagnostic Tests eeg--normal Roland Mitchell MD PhD Nov 29, 2017 20:51
[2017-11-29] MEDS: methylPREDNISolone SOD SUCC 40 MG/1 ML VIAL IV PUSH SCH (21:18)
--- NOTE | 2017-11-29 21:38 | MB ---
cc: JESSICA COPELAND DATE OF CONSULTATION 11/29/[address] Glass REASON FOR CONSULTATION Evaluation for COPD. HISTORY OF PRESENT ILLNESS Ms. Smith is a pleasant 77-year-old female originally from [place] who comes here for the winter about 4 months a year. She has history of possible COPD, anxiety, depression, history of stroke without any deficits in the past. The patient had a couple of falls, this time she was brought to the hospital because she was sitting on the bed and fell down. She does not remember anything what happened to her. She was somewhat confused afterward. No injury. With these symptoms she came to the hospital. She had a workup done. Her WBC count is 3.9, hemoglobin 10.7, hematocrit 32.8, MCV 90, platelet count 146. Sodium 142. Potassium 3.7. Chloride 107. CO2 28. BUN 13. Creatinine 0.97. INR is 2.2. IMAGING Her CT scan of the head shows old right MCA infarct associated encephalomalacia. A chest x-ray shows no acute focal cardiopulmonary process, mild cardiomegaly. PAST MEDICAL HISTORY Her past medical history is significant for: 1. A history of arthritis. 2. Previous stroke. 3. Hypertension. 4. Mastoidectomy. MEDICATIONS She is currently takin. Tylenol with Codeine. 2. Coumadin 4 mg a day. 3. Keppra 500 mg q. 12. 4. Albuterol/Atrovent nebulizer treatment. 5. Naloxone 0.4 milligrams. 6. Lactulose 30 ml. ALLERGIES SHE IS ALLERGIC TO LATEX. SOCIAL HISTORY She is for 60 years. She used to work before, she is retired. Remote history of smoking. FAMILY HISTORY She has three children. REVIEW OF SYSTEMS The patient walks slowly and she is hesitant to walk because she is afraid she will fall down. Has a previous history of stroke before. No dizziness. No deep venous thrombosis or pulmonary embolism. PHYSICAL EXAMINATION GENERAL: An elderly female, [id number], mild short of breath. VITAL SIGNS: Blood pressure 117/53, heart rate 77, respirations 20, temperature is 98.8. HEENT: Pupils are equal and reactive to light. Oral mucosa and nasal mucosa normal. NECK: Supple. JVP not raised. CHEST: Air entry equal bilaterally. She has expiratory rhonchi. CARDIOVASCULAR: S1-S2 normal. ABDOMEN: Benign. EXTREMITIES: No edema. IMPRESSION 1. Chronic obstructive pulmonary disease with mild exacerbation. 2. History of fall. 3. Atrial fibrillation with rapid ventricular rate. 4. History of stroke in the past. 5. Hypertension. PLAN We will keep her on a short course of steroids with Solu-Medrol 40 milligrams q.8h. Aerosol treatment with albuterol and Atrovent. Supplement her oxygen. She is on Coumadin. Neurology is following the patient. Further treatment will depend on the course in the hospital. I discussed the patient's condition with her son and at the bedside. Further treatment will depend on the course in the hospital. Thank you Dr. Glass for this consultation. MD MIRANDA Morales/RADHA /7:38 PM /9:03 PM
[2017-11-30] VITALS (28 sets, daily range): BP systolic 100–120; BP diastolic 52–83; PULSE 64–95; RESP 18–20; TEMP 98.1–99.2; O2SAT 94–98
[2017-11-30] MEDS: ACETAMINOPHEN/CODEINE 300 MG/30 MG TAB PO PRN ×3 (00:15→18:21)
[2017-11-30] MEDS: SODIUM CHLOR 0.9% 1000 ML INJ 1,000 ML IV SCH ×3 (02:51→22:51)
[2017-11-30] MEDS: methylPREDNISolone SOD SUCC 40 MG/1 ML VIAL IV PUSH SCH ×3 (05:39→21:06)
[2017-11-30] MEDS: RESP: ALBUTEROL 2.5 MG/IPRATROPIUM 0.5 MG NEB (SCH) NEB ×4 (07:36→22:18)
[2017-11-30] MEDS: DOCUSATE SODIUM 50 MG/SENNA 8.6 MG TAB PO SCH ×2 (08:23→21:05)
[2017-11-30] MEDS: levETIRAcetam 500 MG TAB PO SCH ×2 (08:23→21:05)
[2017-11-30 10:59] LABS: INTERNATIONAL NORMALIZED RATIO 3.8 RATIO; PROTHROMBIN TIME - PATIENT 38.4 SEC (9.8-11.6)
--- NOTE | 2017-11-30 14:52 | PD.CARD.PN ---
Subjective Subjective Remarks more lucid in nad Objective Medications Current Medications Medications (Trade) Dose Ordered Sig/Melo Route Start Time Stop Time Status Last Admin (NS Flush) 2 ml UNSCH PRN IV FLUSH 11/27/17 12:15 Sodium Chloride 1,000 ml @ 100 mls/hr Q10H IV 11/27/17 14:51 11/28/17 12:18 (Tylenol) 650 mg Q4H PRN PO 11/27/17 15:00 11/29/17 07:16 (Zofran Inj) 4 mg Q6H PRN IVP 11/27/17 15:00 (Narcan Inj) 0.4 mg UNSCH PRN IV PUSH 11/27/17 15:00 (Emili-Colace) 1 tab BID PO 11/27/17 21:00 11/29/17 20:11 (Milk Of Magnesia Liq) 30 ml Q12H PRN PO 11/27/17 15:00 (Senokot) 17.2 mg Q12H PRN PO 11/27/17 15:00 (Dulcolax Supp) 10 mg DAILY PRN RECTAL 11/27/17 15:00 (Lactulose Liq) 30 ml DAILY PRN PO 11/27/17 15:00 (Duoneb Neb) 1 ampule QID NEB NEB 11/28/17 00:45 11/30/17 12:03 (Keppra) 500 mg Q12HR PO 11/28/17 11:00 11/30/17 08:23 (Coumadin) 4 mg DAILY@16 PO 11/28/17 16:00 11/29/17 15:58 (Tylenol-Codeine #3) 1 tab Q4H PRN PO 11/29/17 08:00 11/30/17 14:34 (SoluMEDROL INJ) 40 mg Q8HR IV PUSH 11/29/17 22:00 11/30/17 14:34 Vital Signs / I&O Vital Signs Date Time Temp Pulse Resp B/P (MAP) Pulse Ox O2 Delivery O2 Flow Rate FiO2 11/30/17 13:00 88 11/30/17 12:00 68 11/30/17 11:00 99.1 82 20 112/59 (76) 94 11/30/17 11:00 73 11/30/17 10:00 74 11/30/17 09:00 78 11/30/17 08:00 72 11/30/17 07:36 98 Nasal Cannula 3.00 11/30/17 07:15 98.2 80 18 120/58 (78) 98 11/30/17 07:15 64 11/30/17 06:00 64 11/30/17 05:00 66 11/30/17 04:00 68 11/30/17 04:00 99.2 81 20 111/52 (71) 96 11/30/17 03:02 77 11/30/17 02:00 73 11/30/17 01:02 77 11/30/17 00:15 98.1 86 20 100/65 (77) 98 11/30/17 00:00 86 11/29/17 23:00 82 11/29/17 22:00 90 11/29/17 21:00 82 11/29/17 20:49 99 Nasal Cannula 2.00 11/29/17 20:00 85 11/29/17 20:00 98.4 88 18 114/67 (83) 98 11/29/17 19:00 85 11/29/17 18:00 82 11/29/17 17:00 82 11/29/17 16:00 72 11/29/17 15:00 72 11/29/17 15:00 98.2 77 20 117/53 (74) 98 I/O 11/29/17 11/29/17 11/29/17 11/30/17 11/30/17 11/30/17 07:00 15:00 23:00 07:00 15:00 23:00 Intake Total 660 ml 720 ml 420 ml Output Total 750 ml 500 ml 950 ml Balance -90 ml 220 ml -530 ml Intake Oral 660 ml 720 ml 420 ml Output Urine Total 750 ml 500 ml 950 ml # Bowel Movements 1 1 0 Physical Exam GENERAL: SKIN: Warm and dry. HEAD: Normocephalic. EYES: No scleral icterus. No injection or drainage. NECK: Supple, trachea midline. No JVD or lymphadenopathy. CARDIOVASCULAR: Regular rate and rhythm without murmurs, gallops, or rubs. RESPIRATORY: Breath sounds equal bilaterally. No accessory muscle use. GASTROINTESTINAL: Abdomen soft, non-tender, nondistended. MUSCULOSKELETAL: No cyanosis, or edema. BACK: Nontender without obvious deformity. No CVA tenderness. Laboratory Laboratory Tests Test 11/29/17 19:11 11/30/17 10:30 11/30/17 13:00 Troponin I LESS THAN 0.02 NG/ML Prothrombin Time 38.4 SEC Prothromb Time International Ratio 3.8 RATIO B-Type Natriuretic Peptide 136 PG/ML Assessment and Plan Problem List: (1) Atrial fibrillation with RVR ICD Codes: I48.91 - Unspecified atrial fibrillation Status: Acute (2) Altered mental status ICD Codes: R41.82 - Altered mental status, unspecified Status: Acute Assessment and Plan 1.) AFib - rate controlled, coumadin restarted by Dr Mitchell, f/u neuro work up and 2d echo, inr=2.2 today, dc loverekhax d/w nurse at bedside Problem Qualifiers (1) Altered mental status: Qualified Codes: R41.82 - Altered mental status, unspecified Nathaniel Zhong MD Nov 30, 2017 14:52
--- NOTE | 2017-11-30 15:45 | HHI.PR ---
Subjective Remarks xray shows l fib fx ortho consulted pt will not be able to go home to her elderly caregiver will asses for snf placement Objective Vital Signs Date Time Temp Pulse Resp B/P (MAP) Pulse Ox O2 Delivery O2 Flow Rate FiO2 11/30/17 15:00 87 11/30/17 15:00 99.0 85 20 120/83 (95) 94 11/30/17 14:00 84 11/30/17 13:00 88 11/30/17 12:00 68 11/30/17 11:00 99.1 82 20 112/59 (76) 94 11/30/17 11:00 73 11/30/17 10:00 74 11/30/17 09:00 78 11/30/17 08:00 72 11/30/17 07:36 98 Nasal Cannula 3.00 11/30/17 07:15 98.2 80 18 120/58 (78) 98 11/30/17 07:15 64 11/30/17 06:00 64 11/30/17 05:00 66 11/30/17 04:00 68 11/30/17 04:00 99.2 81 20 111/52 (71) 96 11/30/17 03:02 77 11/30/17 02:00 73 11/30/17 01:02 77 11/30/17 00:15 98.1 86 20 100/65 (77) 98 11/30/17 00:00 86 11/29/17 23:00 82 11/29/17 22:00 90 11/29/17 21:00 82 11/29/17 20:49 99 Nasal Cannula 2.00 11/29/17 20:00 85 11/29/17 20:00 98.4 88 18 114/67 (83) 98 11/29/17 19:00 85 11/29/17 18:00 82 11/29/17 17:00 82 11/29/17 16:00 72 I/O 11/29/17 11/29/17 11/29/17 11/30/17 11/30/17 11/30/17 07:00 15:00 23:00 07:00 15:00 23:00 Intake Total 660 ml 720 ml 420 ml Output Total 750 ml 500 ml 950 ml Balance -90 ml 220 ml -530 ml Intake Oral 660 ml 720 ml 420 ml Output Urine Total 750 ml 500 ml 950 ml # Bowel Movements 1 1 0 Result Diagram: 11/28/17 0447 11/28/17 0447 Imaging Last Impressions Lower Extremity Ultrasound 11/29/17 0000 Signed Impressions: Service Date/Time: Wednesday, November 29, 2017 08:40 - CONCLUSION: Negative for deep venous thrombosis. Yvan Jung MD FACR Knee X-Ray 11/29/17 0000 Signed Impressions: Service Date/Time: Wednesday, November 29, 2017 12:47 - CONCLUSION: Degenerative changes, trace joint effusion, no fracture Yvan Jung MD FACR Ankle X-Ray 11/29/17 0000 Signed Impressions: Service Date/Time: Wednesday, November 29, 2017 12:44 - CONCLUSION: Spinal fracture fibula as described above. Yvan Jung MD FACR Carotid Artery Ultrasound 11/28/17 0000 Signed Impressions: Service Date/Time: Tuesday, November 28, 2017 11:20 - CONCLUSION: No evidence of hemodynamically significant lesion. Marcos Worrell MD Brain MRI 11/28/17 0000 Signed Impressions: Service Date/Time: Tuesday, November 28, 2017 16:52 - CONCLUSION: 1. Right temporal lobe encephalomalacia consistent with old infarct. 2. Old right basal ganglia infarct. 3. No evidence of acute infarct, hemorrhage, mass, edema or enhancing lesions Omid Giordano MD Hip and Pelvis X-Ray 11/27/17 0000 Signed Impressions: Service Date/Time: Monday, November 27, 2017 12:19 - CONCLUSION: 1. No acute fracture or dislocation. 2. Degenerative changes and scoliosis of the lower lumbar spine. Kameron Elizabeth MD Head CT 11/27/17 0000 Signed Impressions: Service Date/Time: Monday, November 27, 2017 12:40 - CONCLUSION: 1. Old right MCA infarct with associated encephalomalacia involving the right temporal and parietal lobes and ex vacuo dilatation of the right lateral ventricle. 2. No acute infarct, acute hemorrhage, mass effect or extra-axial fluid collections. Kameron Elizabeth MD Chest X-Ray 11/27/17 0000 Signed Impressions: Service Date/Time: Monday, November 27, 2017 12:25 - CONCLUSION: 1. No acute focal pulmonary infiltrate or pulmonary vascular congestion. 2. Mild cardiomegaly. 3. Degenerative changes and scoliosis of the thoracic spine. Kameron Elizabeth MD Cervical Spine CT 11/27/17 0000 Signed Impressions: Service Date/Time: Monday, November 27, 2017 12:40 - CONCLUSION: 1. Moderate degenerative changes as described above. There is no evidence of acute fracture. Marcos Worrell MD Objective Remarks GENERAL: Well-nourished, well-developed patient. SKIN: Warm and dry. HEAD: Normocephalic. EYES: No scleral icterus. No injection or drainage. NECK: Supple, trachea midline. No JVD or lymphadenopathy. CARDIOVASCULAR: Regular rate and rhythm without murmurs, gallops, or rubs.rate now controlled RESPIRATORY: Breath sounds equal bilaterally. No accessory muscle use. GASTROINTESTINAL: Abdomen soft, non-tender, nondistended. EXTREMITIES: No cyanosis, or edema pain to palpation r leg and calf NEUROLOGICAL: Awake, alert, Non-focal.confused Medications and IVs Inpatient Medications Acetaminophen (Tylenol) 650 mg Q4H PRN PO TEMP > 100.4 Last administered on 11/29at 07:16; Start 11/27/17 at 15:00 Acetaminophen/ Codeine Phosphate (Tylenol-Codeine #3) 1 tab Q4H PRN PO PAIN SCALE 4 TO 10 Last administered on 11/30/17at 14:34; Start 11/29/17 at 08:00 Albuterol/ Ipratropium (Duoneb Neb) 1 ampule QID NEB NEB Last administered on 11/30/17at 12:03; Start 11/28/17 at 00:45 Bisacodyl (Dulcolax Supp) 10 mg DAILY PRN RECTAL SEVERE CONSITIPATION; Start at 15:00 Digoxin (Lanoxin Inj) 0.25 mg ONCE ONCE IV PUSH Last administered on 11/27/17at 17:54; Start 11/27/17 at 17:15; Stop 11/27/17 at 17:16; Status DC Diltiazem HCl (Cardizem Inj) 30 mg ONCE ONCE IV Last administered on 11/27/17at 14:18; Start 11/27/17 at 14:15; Stop 11/27/17 at 14:16; Status DC Diltiazem HCl 125 mg/Sodium Chloride 125 ml @ 5 mls/hr TITRATE PRN IV tachycardia Last administered on 11/27/17at 15:02; Start 11/27/17 at 14:45; Stop at 00:39; Status DC Enoxaparin Sodium (Lovenox Inj) 40 mg Q24H SQ Last administered on 11/28/17at 16: 05; Start 11/27/17 at 16:00; Stop 11/29/17 at 15:53; Status DC Lactulose (Lactulose Liq) 30 ml DAILY PRN PO SEVERE CONSITIPATION; Start at 15:00 Levetriacetam (Keppra) 500 mg Q12HR PO Last administered on 11/30/17at 08:23; Start 11/28/17 at 11:00 Magnesium Hydroxide (Milk Of Magnesia Liq) 30 ml Q12H PRN PO Mild constipation ; Start 11/27/17 at 15:00 Methylprednisolone Sodium Succinate (SoluMEDROL INJ) 40 mg Q8HR IV PUSH Last administered on 11/30/17at 14:34; Start 11/29/17 at 22:00 Naloxone HCl (Narcan Inj) 0.4 mg UNSCH PRN IV PUSH SEE LABEL COMMENTS; Start at 15:00 Nystatin (Mycostatin Powder) 1 applic ONCE ONCE TOPICAL Last administered on at 15:04; Start 11/27/17 at 14:45; Stop 11/27/17 at 14:46; Status DC Ondansetron HCl (Zofran Inj) 4 mg Q6H PRN IVP NAUSEA OR VOMITING; Start at 15:00 Patient Medication Teaching (Coumadin Booklet) 1 ONCE ONCE .XX Last administered on 11/28/17at 11:52; Start 11/28/17 at 11:00; Stop 11/28/17 at 11:01; Status DC Senna/Docusate Sodium (Emili-Colace) 1 tab BID PO Last administered on 11/29/17at 20:11; Start 11/27/17 at 21:00 Sennosides (Senokot) 17.2 mg Q12H PRN PO Moderate constipation; Start 11/27/17 at 15:00 Sodium Chloride 1,000 ml @ 100 mls/hr Q10H IV Last administered on 11/28/17at 12 :18; Start 11/27/17 at 14:51 Sodium Chloride (NS Flush) 2 ml UNSCH PRN IV FLUSH FLUSH AFTER USING IV ACCESS ; Start 11/27/17 at 12:15 Warfarin Sodium (Coumadin) 4 mg DAILY@16 PO Last administered on 11/29/17at 15:58 ; Start 11/28/17 at 16:00 Assessment and Plan Problem List: (1) Altered mental status ICD Codes: R41.82 - Altered mental status, unspecified Status: Acute Plan: neurology consulted pt will need assistance at discharge (2) Atrial fibrillation with RVR ICD Codes: I48.91 - Unspecified atrial fibrillation Status: Acute Plan: rate now controlled (3) Leg pain, left ICD Codes: M79.605 - Pain in left leg Plan: will image us doppler and xray Assessment and Plan afib rvr with altered mental status and left leg fx snf placement up health system Problem Qualifiers (1) Altered mental status: Qualified Codes: R41.82 - Altered mental status, unspecified Braydon Glass DO Nov 30, 2017 15:45
[2017-11-30] MEDS: WARFARIN SOD 4 MG TAB PO SCH (15:47)
--- NOTE | 2017-11-30 16:35 | EKG ---
Date Performed: 11/29/2017 Time Performed: 18:19:40 PTAGE: 77 years EKG: Sinus rhythm Inferior and anterior T wave changes are nonspecific Low QRS voltages in precordial leads Borderline ECG PREVIOUS TRACING : 11/27/2017 13.43 Sinus rhythm with short HI interval replaces atrial fibrill ation. Possible delta wave in lead II. Clinical correlation is recommended. DOCTOR: Reynold Jason Interpretating Date/Time 11/30/2017 16:34:45
--- NOTE | 2017-11-30 19:03 | HHI.PR ---
Subjective Remarks 77 YOWF with COPD,AF,FAll Breathing betetr Wheezing improved [place] Objective Vital Signs Vital Signs Date Time Temp Pulse Resp B/P (MAP) Pulse Ox O2 Delivery O2 Flow Rate FiO2 11/30/17 18:00 95 11/30/17 17:00 84 11/30/17 16:00 74 11/30/17 15:00 87 11/30/17 15:00 99.0 85 20 120/83 (95) 94 11/30/17 14:00 84 11/30/17 13:00 88 11/30/17 12:00 68 11/30/17 11:00 99.1 82 20 112/59 (76) 94 11/30/17 11:00 73 11/30/17 10:00 74 11/30/17 09:00 78 11/30/17 08:00 72 11/30/17 07:36 98 Nasal Cannula 3.00 11/30/17 07:15 98.2 80 18 120/58 (78) 98 11/30/17 07:15 64 11/30/17 06:00 64 11/30/17 05:00 66 11/30/17 04:00 68 11/30/17 04:00 99.2 81 20 111/52 (71) 96 11/30/17 03:02 77 11/30/17 02:00 73 11/30/17 01:02 77 11/30/17 00:15 98.1 86 20 100/65 (77) 98 11/30/17 00:00 86 11/29/17 23:00 82 11/29/17 22:00 90 11/29/17 21:00 82 11/29/17 20:49 99 Nasal Cannula 2.00 11/29/17 20:00 85 11/29/17 20:00 98.4 88 18 114/67 (83) 98 I/O 11/29/17 11/29/17 11/29/17 11/30/17 11/30/17 11/30/17 07:00 15:00 23:00 07:00 15:00 23:00 Intake Total 660 ml 720 ml 420 ml 600 ml Output Total 750 ml 500 ml 950 ml 500 ml Balance -90 ml 220 ml -530 ml 100 ml Intake Oral 660 ml 720 ml 420 ml 600 ml Output Urine Total 750 ml 500 ml 950 ml 500 ml # Bowel Movements 1 1 0 0 Result Diagram: 11/28/1744611/28/17446 Objective Remarks GENERAL: MBMN WF NAD SKIN: Warm and dry. HEAD: Normocephalic. EYES: No scleral icterus. No injection or drainage. NECK: Supple, trachea midline. No JVD or lymphadenopathy. CARDIOVASCULAR: Regular rate and rhythm without murmurs, gallops, or rubs. RESPIRATORY: Breath sounds equal bilaterally. No accessory muscle use. GASTROINTESTINAL: Abdomen soft, non-tender, nondistended. MUSCULOSKELETAL: No cyanosis, or edema. BACK: Nontender without obvious deformity. No CVA tenderness. A/P Assessment and Plan COPD with Exac AF with RVR Fall H/o CVA [facility] [place] PLAN: IV Solumedrol Aerosol nebs Controll HR Supplement 02 to keep sat >92% Joshua Zelaya MD Nov 30, 2017 19:03
[2017-12-01] VITALS (26 sets, daily range): BP systolic 107–141; BP diastolic 54–64; PULSE 63–102; RESP 14–18; TEMP 97.9–98.7; O2SAT 92–99
[2017-12-01] MEDS: methylPREDNISolone SOD SUCC 40 MG/1 ML VIAL IV PUSH SCH ×3 (06:44→21:24)
[2017-12-01] MEDS: ACETAMINOPHEN/CODEINE 300 MG/30 MG TAB PO PRN ×2 (06:45→22:44)
[2017-12-01] MEDS: RESP: ALBUTEROL 2.5 MG/IPRATROPIUM 0.5 MG NEB (SCH) NEB ×4 (08:09→19:57)
[2017-12-01] MEDS: levETIRAcetam 500 MG TAB PO SCH ×2 (10:10→21:23)
[2017-12-01] MEDS: DOCUSATE SODIUM 50 MG/SENNA 8.6 MG TAB PO SCH ×2 (10:10→21:24)
--- NOTE | 2017-12-01 13:22 | HHI.PR ---
Subjective Remarks No apparent distress, not talking much, nurse states she is SYCUAN. Objective Vital Signs Date Time Temp Pulse Resp B/P (MAP) Pulse Ox O2 Delivery O2 Flow Rate FiO2 12/01/17 10:00 82 12/01/17 09:00 82 12/01/17 08:09 94 Nasal Cannula 3.00 12/01/17 08:00 70 12/01/17 07:00 102 12/01/17 07:00 98.6 68 14 118/57 (77) 98 12/01/17 06:30 67 12/01/17 05:20 65 12/01/17 04:21 68 12/01/17 03:40 63 12/01/17 03:40 98.3 68 18 124/63 (83) 99 12/01/17 02:51 63 12/01/17 01:13 66 12/01/17 00:00 67 11/30/17 23:21 66 11/30/17 23:21 98.1 81 20 115/58 (77) 98 11/30/17 22:22 96 Nasal Cannula 3.00 11/30/17 22:05 79 11/30/17 21:30 74 11/30/17 20:30 75 11/30/17 19:20 98.5 80 19 106/55 (72) 97 11/30/17 19:10 79 11/30/17 18:00 95 11/30/17 17:00 84 11/30/17 16:00 74 11/30/17 15:00 87 11/30/17 15:00 99.0 85 20 120/83 (95) 94 11/30/17 14:00 84 I/O 11/30/17 11/30/17 11/30/17 12/01/17 12/01/17 12/01/17 06:59 14:59 22:59 06:59 14:59 22:59 Intake Total 420 ml 600 ml 960 ml Output Total 950 ml 500 ml 700 ml Balance -530 ml 100 ml 260 ml Intake Oral 420 ml 600 ml 960 ml Output Urine Total 950 ml 500 ml 700 ml # Bowel Movements 0 0 0 Result Diagram: 11/28/1744611/28/17446 Objective Remarks hysical Exam GENERAL: This is a well-nourished, well-developed patient, in no apparent distress. SKIN: No rashes, ecchymoses or lesions. Cool and dry. HEAD: Atraumatic. EYES: Pupils equal round and reactive. Extraocular motions intact. No scleral icterus ENT: Nose without bleeding, purulent drainage or septal hematoma. Airway patent. Hard of hearing. NECK: Trachea midline. No JVD or lymphadenopathy. Supple, nontender, no meningeal signs. CARDIOVASCULAR: Regular rate and rhythm without murmurs, gallops, or rubs. RESPIRATORY: Breath sounds equal bilaterally. No rales, or rhonchi. GASTROINTESTINAL: Abdomen soft, non-tender MUSCULOSKELETAL:No edema. LLE tenderness. NEUROLOGICAL: Awake and alert normal speech Assessment and Plan Assessment and Plan Assessment and Plan Problem List: (1) Altered mental status ICD Codes: R41.82 - Altered mental status, unspecified Status: Acute Plan: neurology following, On Keppra, (2) Atrial fibrillation with RVR ICD Codes: I48.91 - Unspecified atrial fibrillation Status: Acute Plan: rate now controlled, on Coumadin (3) Leg pain, left ICD Codes: M79.605 - Pain in left leg Plan: Assessment and Plan Continue Kera for seizure percaution, followed by Neuro. Afib with controlled rate on Coumadin, monitor INR Awaiting on orthopedics for FX fibula. Copd exacerbation- Dr Zelaya following, solu-medrol. improved sats maintained on 2L Will need Snf placement Nunu Haddad Dec 01, 2017 13:22
--- NOTE | 2017-12-01 15:28 | PD.CARD.PN ---
Subjective Subjective Remarks more lucid in nad, [place] so hard to communicate, maybe has dementia Objective Medications Current Medications Medications (Trade) Dose Ordered Sig/Melo Route Start Time Stop Time Status Last Admin (NS Flush) 2 ml UNSCH PRN IV FLUSH 11/27/17 12:15 (Tylenol) 650 mg Q4H PRN PO 11/27/17 15:00 11/29/17 07:16 (Zofran Inj) 4 mg Q6H PRN IVP 11/27/17 15:00 (Narcan Inj) 0.4 mg UNSCH PRN IV PUSH 11/27/17 15:00 (Emili-Colace) 1 tab BID PO 11/27/17 21:00 12/01/17 10:10 (Milk Of Magnesia Liq) 30 ml Q12H PRN PO 11/27/17 15:00 (Senokot) 17.2 mg Q12H PRN PO 11/27/17 15:00 (Dulcolax Supp) 10 mg DAILY PRN RECTAL 11/27/17 15:00 (Lactulose Liq) 30 ml DAILY PRN PO 11/27/17 15:00 (Duoneb Neb) 1 ampule QID NEB NEB 11/28/17 00:45 12/01/17 12:10 (Keppra) 500 mg Q12HR PO 11/28/17 11:00 12/01/17 10:10 (Coumadin) 4 mg DAILY@16 PO 11/28/17 16:00 Future Hold 11/30/17 15:47 (Tylenol-Codeine #3) 1 tab Q4H PRN PO 11/29/17 08:00 12/01/17 06:45 (SoluMEDROL INJ) 40 mg Q8HR IV PUSH 11/29/17 22:00 12/01/17 14:55 Vital Signs / I&O Vital Signs Date Time Temp Pulse Resp B/P (MAP) Pulse Ox O2 Delivery O2 Flow Rate FiO2 12/01/17 13:00 88 12/01/17 12:00 68 12/01/17 11:00 72 12/01/17 11:00 97.9 86 17 107/54 (71) 93 12/01/17 10:00 82 12/01/17 09:00 82 12/01/17 08:09 94 Nasal Cannula 3.00 12/01/17 08:00 70 12/01/17 07:00 102 12/01/17 07:00 98.6 68 14 118/57 (77) 98 12/01/17 06:30 67 12/01/17 05:20 65 12/01/17 04:21 68 12/01/17 03:40 63 12/01/17 03:40 98.3 68 18 124/63 (83) 99 12/01/17 02:51 63 12/01/17 01:13 66 12/01/17 00:00 67 11/30/17 23:21 66 11/30/17 23:21 98.1 81 20 115/58 (77) 98 11/30/17 22:22 96 Nasal Cannula 3.00 11/30/17 22:05 79 11/30/17 21:30 74 11/30/17 20:30 75 11/30/17 19:20 98.5 80 19 106/55 (72) 97 11/30/17 19:10 79 11/30/17 18:00 95 11/30/17 17:00 84 11/30/17 16:00 74 I/O 11/30/17 11/30/17 11/30/17 12/01/17 12/01/17 12/01/17 07:00 15:00 23:00 07:00 15:00 23:00 Intake Total 420 ml 600 ml 960 ml Output Total 950 ml 500 ml 700 ml Balance -530 ml 100 ml 260 ml Intake Oral 420 ml 600 ml 960 ml Output Urine Total 950 ml 500 ml 700 ml # Bowel Movements 0 0 0 Physical Exam GENERAL: SKIN: Warm and dry. HEAD: Normocephalic. EYES: No scleral icterus. No injection or drainage. NECK: Supple, trachea midline. No JVD or lymphadenopathy. CARDIOVASCULAR: Regular rate and rhythm without murmurs, gallops, or rubs. RESPIRATORY: Breath sounds equal bilaterally. No accessory muscle use. GASTROINTESTINAL: Abdomen soft, non-tender, nondistended. MUSCULOSKELETAL: No cyanosis, or edema. BACK: Nontender without obvious deformity. No CVA tenderness. Laboratory Laboratory Tests Test 11/30/17 21:17 Troponin I LESS THAN 0.02 NG/ML Assessment and Plan Problem List: (1) Atrial fibrillation with RVR ICD Codes: I48.91 - Unspecified atrial fibrillation Status: Acute (2) Altered mental status ICD Codes: R41.82 - Altered mental status, unspecified Status: Acute Assessment and Plan 1.) AFib - assymptomatic, rate controlled, coumadin restarted by Dr Mitchell, f/u neuro work up and 2d echo, dc lovenox d/w nurse at bedside Problem Qualifiers (1) Altered mental status: Qualified Codes: R41.82 - Altered mental status, unspecified Nathaniel Zhong MD Dec 01, 2017 15:28
--- NOTE | 2017-12-01 16:50 | HHI.PR ---
Subjective Remarks 77 YOWF with COPD,AF,FAll Breathing better Wheezing improved PAIUTE-SHOSHONE Weaned to RA Objective Vital Signs Vital Signs Date Time Temp Pulse Resp B/P (MAP) Pulse Ox O2 Delivery O2 Flow Rate FiO2 12/01/17 16:00 78 12/01/17 15:00 98.7 91 16 111/57 (75) 97 12/01/17 15:00 90 12/01/17 14:00 88 12/01/17 13:00 88 12/01/17 12:00 68 12/01/17 11:00 72 12/01/17 11:00 97.9 86 17 107/54 (71) 93 12/01/17 10:00 82 12/01/17 09:00 82 12/01/17 08:09 94 Nasal Cannula 3.00 12/01/17 08:00 70 12/01/17 07:00 102 12/01/17 07:00 98.6 68 14 118/57 (77) 98 12/01/17 06:30 67 12/01/17 05:20 65 12/01/17 04:21 68 12/01/17 03:40 63 12/01/17 03:40 98.3 68 18 124/63 (83) 99 12/01/17 02:51 63 12/01/17 01:13 66 12/01/17 00:00 67 11/30/17 23:21 66 11/30/17 23:21 98.1 81 20 115/58 (77) 98 11/30/17 22:22 96 Nasal Cannula 3.00 11/30/17 22:05 79 11/30/17 21:30 74 11/30/17 20:30 75 11/30/17 19:20 98.5 80 19 106/55 (72) 97 11/30/17 19:10 79 11/30/17 18:00 95 11/30/17 17:00 84 I/O 11/30/17 11/30/17 11/30/17 12/01/17 12/01/17 12/01/17 07:00 15:00 23:00 07:00 15:00 23:00 Intake Total 420 ml 600 ml 960 ml Output Total 950 ml 500 ml 700 ml Balance -530 ml 100 ml 260 ml Intake Oral 420 ml 600 ml 960 ml Output Urine Total 950 ml 500 ml 700 ml # Bowel Movements 0 0 0 Result Diagram: 11/28/1744611/28/17446 Objective Remarks GENERAL: MBMN WF NAD SKIN: Warm and dry. HEAD: Normocephalic. EYES: No scleral icterus. No injection or drainage. NECK: Supple, trachea midline. No JVD or lymphadenopathy. CARDIOVASCULAR: Regular rate and rhythm without murmurs, gallops, or rubs. RESPIRATORY: Breath sounds equal bilaterally. No accessory muscle use. GASTROINTESTINAL: Abdomen soft, non-tender, nondistended. MUSCULOSKELETAL: No cyanosis, or edema. BACK: Nontender without obvious deformity. No CVA tenderness. A/P Assessment and Plan COPD with Exac AF with RVR Fall H/o CVA PAIUTE-SHOSHONE PLAN: IV Solumedrol Aerosol nebs Controll HR Supplement 02 to keep sat >92% Joshua Zelaya MD Dec 01, 2017 16:50
--- NOTE | 2017-12-01 18:01 | PD.CONS ---
cc: Damon Castillo Jr., MD HPI Service [facility] Surgeons Consult Requested By Primary Care Physician Non-Staff Admission Diagnosis atrial fibrillation with RVR, altered mental status, weakness Diagnoses: Chief Complaint: Left ankle fracture History of Present Illness Responded to a consult for left ankle fracture Consult went to unknow provider from the ER on the and sent to wrong provider on the . Jose is a very pleasant 77-year old lady. She is hard of hearing. She is wheelchair-bound and presented to emergency department with chest pain and weakness. During initial evaluation she was noted to have left ankle pain. There is no history of recent trauma. Therefore, history is obtained from the chart. She c/o left ankle pain and inability bear weight. x-ray taken the emergency department reveal a nondisplaced spiral fracture of the left lateral malleolus with stable ankle mortise. She Denies any head injuries. Denies loss of consciousness. Currently is alert, pain localized at left ankle, patient's is 3 out of 10, exacerbated by any range of motion, touch, movement, relieved at rest and with IV pain medicine, pain is sharp nonradiating, dull, not associated with any paresthesia and numbness to the extremity. PAST MEDICAL HISTORY 1. Arthritis, 2. Depression, 3. Hyperlipidemia, 4. CVA 2008 5. Bilateral hearing aids. 6. Hypertension 7. Mastoidectomy. SOCIAL HISTORY She drinks wine, denies tobacco use. Past Family Social History Allergies: Coded Allergies: latex (Unverified Allergy, Intermediate, RASH, 07/06/17) Active Ordered Medications Current Medications Medications (Trade) Dose Ordered Sig/Melo Route Start Time Stop Time Status Last Admin (NS Flush) 2 ml UNSCH PRN IV FLUSH 11/27/17 12:15 (Tylenol) 650 mg Q4H PRN PO 11/27/17 15:00 11/29/17 07:16 (Zofran Inj) 4 mg Q6H PRN IVP 11/27/17 15:00 (Narcan Inj) 0.4 mg UNSCH PRN IV PUSH 11/27/17 15:00 (Emili-Colace) 1 tab BID PO 11/27/17 21:00 12/01/17 10:10 (Milk Of Magnesia Liq) 30 ml Q12H PRN PO 11/27/17 15:00 (Senokot) 17.2 mg Q12H PRN PO 11/27/17 15:00 (Dulcolax Supp) 10 mg DAILY PRN RECTAL 11/27/17 15:00 (Lactulose Liq) 30 ml DAILY PRN PO 11/27/17 15:00 (Duoneb Neb) 1 ampule QID NEB NEB 11/28/17 00:45 12/01/17 15:43 (Keppra) 500 mg Q12HR PO 11/28/17 11:00 12/01/17 10:10 (Coumadin) 4 mg DAILY@16 PO 11/28/17 16:00 Future Hold 11/30/17 15:47 (Tylenol-Codeine #3) 1 tab Q4H PRN PO 11/29/17 08:00 12/01/17 06:45 (SoluMEDROL INJ) 40 mg Q8HR IV PUSH 11/29/17 22:00 12/01/17 14:55 Reported Meds & Active Scripts Active Reported Proair Hfa 8.5 GM Inh (Albuterol Sulfate) 90 Mcg/Act Aer 2 Puff INH Q4H PRN 108 mcg/actuation Protonix (Pantoprazole Sodium) 40 Mg Tab 40 Mg PO DAILY Risperdal (Risperidone) 0.5 Mg Tab 0.5 Mg PO HS Sertraline (Sertraline HCl) 100 Mg Tab 100 Mg PO DAILY Warfarin 3 Mg Tab 4.5 Mg PO WEDNESDAY Coumadin (Warfarin) 3 Mg Tab 3 Mg PO SUMOTUWEFRSA Take 1 tablet (3mg) daily on Wednesday,Wednesday,Wednesday,Wednesday,Wednesday and Wednesday Rivastigmine 1.5 Mg Cap 1.5 Mg PO BID Physical Exam Vital Signs Vital Signs Date Time Temp Pulse Resp B/P (MAP) Pulse Ox O2 Delivery O2 Flow Rate FiO2 12/01/17 16:00 78 12/01/17 15:00 98.7 91 16 111/57 (75) 97 12/01/17 15:00 90 12/01/17 14:00 88 12/01/17 13:00 88 12/01/17 12:00 68 12/01/17 11:00 72 12/01/17 11:00 97.9 86 17 107/54 (71) 93 12/01/17 10:00 82 12/01/17 09:00 82 12/01/17 08:09 94 Nasal Cannula 3.00 12/01/17 08:00 70 12/01/17 07:00 102 12/01/17 07:00 98.6 68 14 118/57 (77) 98 12/01/17 06:30 67 12/01/17 05:20 65 12/01/17 04:21 68 12/01/17 03:40 63 12/01/17 03:40 98.3 68 18 124/63 (83) 99 12/01/17 02:51 63 12/01/17 01:13 66 12/01/17 00:00 67 11/30/17 23:21 66 11/30/17 23:21 98.1 81 20 115/58 (77) 98 11/30/17 22:22 96 Nasal Cannula 3.00 11/30/17 22:05 79 11/30/17 21:30 74 11/30/17 20:30 75 11/30/17 19:20 98.5 80 19 106/55 (72) 97 11/30/17 19:10 79 11/30/17 18:00 95 Physical Exam Alert awake and oriented x 3. No acute distress. Head: NC/AT Neck: No pain with any range of motion and neck. Trachea is midline. No tenderness to palpation along posterior cervical elements. Pulmonary: Normal respiratory effort. Bilateral upper extremity: No deformities. Diffuse upper extremity weakness. hAnd flexion contracture bilaterally more severe on the left. 2+ radial artery pulses. Good cap refill. RIGHT lower extremity: Flexion contracture at the hip and knee. Nontender along bony anatomy. grossly Neurovascularly intact, +EHL/FHL. + PT/DP pulses. Supple compartments. Negative Homans sign. LEFT lower extremity: External rotation contracture of the hip with small knee contracture. Very tender to palpation about the the left ankle, more specifically over the lateral malleolus. No deformity, grossly Neurovascularly intact, +EHL/FHL. + PT/DP pulses. Supple compartments. Negative Homans sign. Laboratory Laboratory Tests Test 11/30/17 21:17 Troponin I LESS THAN 0.02 Date/Time Source Procedure Growth Status 11/27/17 13:20 Urine Catheterized Urine Urine Culture - Final NO GROWTH IN 48 HOURS. Complete Result Diagram: 11/28/17 0447 11/28/17 0447 Imaging Last 72 hours Impressions Lower Extremity Ultrasound 11/29/17 0000 Signed Impressions: Service Date/Time: Wednesday, November 29, 2017 08:40 - CONCLUSION: Negative for deep venous thrombosis. Yvan Jung MD FACR Knee X-Ray 11/29/17 0000 Signed Impressions: Service Date/Time: Wednesday, November 29, 2017 12:47 - CONCLUSION: Degenerative changes, trace joint effusion, no fracture Yvan Jung MD FACR Ankle X-Ray 11/29/17 0000 Signed Impressions: Service Date/Time: Wednesday, November 29, 2017 12:44 - CONCLUSION: Spinal fracture fibula as described above. Yvan Jung MD FACR Assessment & Plan Assessment and Plan 77-year-old female with previous stroke presented to emergency department complaining of chest pain and weakness. During her initial evaluation, she complained of left ankle pain. There is no clear history of recent trauma or fall from the wheelchair. On exam, she is tender over the lateral malleolus and about the ankle in general. There is no gross deformity or significant swelling. xray examination reveal a long spiral lateral malleolus fracture with stable ankle mortise and early progressive callus. I recommend nonoperative treatment in a short leg splint. NWB. no ankle ROM. Risks, benefits and alternatives discussed with the patient. All questions answered. Follow-up 2 weeks. Damon Castillo Jr., MD Dec 01, 2017 18:01
[2017-12-01 21:07] LABS: INTERNATIONAL NORMALIZED RATIO 4.6 RATIO; PROTHROMBIN TIME - PATIENT 46.2 SEC (9.8-11.6)
[2017-12-02] VITALS (22 sets, daily range): BP systolic 119–154; BP diastolic 58–75; PULSE 58–73; RESP 14–26; TEMP 97.2–99; O2SAT 95–99
[2017-12-02] MEDS: ACETAMINOPHEN/CODEINE 300 MG/30 MG TAB PO PRN ×2 (04:24→20:51)
[2017-12-02 04:42] LABS: AUTOMATED NEUTROPHIL # 4.9 TH/MM3 (1.8-7.7); BASOPHIL % 0.2 % (0.0-2.0); HEMATOCRIT 34.5 % (35.0-46.0); HEMOGLOBIN 11.6 GM/DL (11.6-15.3); LYMPHOCYTE # 0.6 TH/MM3 (1.0-4.8); MEAN CELL VOLUME 89.6 FL (80.0-100.0); MEAN CORPUSCULAR HEMOGLOBIN 30.1 PG (27.0-34.0); MEAN CORPUSCULAR HGB CONC 33.6 % (32.0-36.0); MEAN PLATELET VOLUME 8.5 FL (7.0-11.0); MONO % 8.9 % (0.0-8.0); MONOCYTE # 0.5 TH/MM3 (0-0.9); NEUT % 80.9 % (16.0-70.0); PLATELET COUNT 197 TH/MM3 (150-450); RED BLOOD COUNT 3.85 MIL/MM3 (4.00-5.30); RED CELL DISTRIBUTION WIDTH 14.1 % (11.6-17.2)
[2017-12-02 04:49] LABS: INTERNATIONAL NORMALIZED RATIO 4.6 RATIO; PROTHROMBIN TIME - PATIENT 46.5 SEC (9.8-11.6)
[2017-12-02 05:10] LABS: BICARBONATE 26.4 MEQ/L (21.0-32.0); CALCIUM 9.2 MG/DL (8.5-10.1); CREATININE 1.01 MG/DL (0.50-1.00)
[2017-12-02] MEDS: methylPREDNISolone SOD SUCC 40 MG/1 ML VIAL IV PUSH SCH ×3 (06:09→20:51)
[2017-12-02] MEDS: levETIRAcetam 500 MG TAB PO SCH ×2 (09:04→20:50)
[2017-12-02] MEDS: DOCUSATE SODIUM 50 MG/SENNA 8.6 MG TAB PO SCH ×2 (09:04→20:50)
[2017-12-02] MEDS ORDERED: BENZONATATE 100 MG CAP PO PRN (09:15)
--- NOTE | 2017-12-02 09:58 | RADRPT ---
EXAM DATE/TIME: 12/02/2017 09:31 [facility] COMPARISON: CHEST SINGLE AP, November 27, 2017, 12:25. INDICATIONS : Cough MEDICAL HISTORY : Arthritis. Hypercholesterolemia. Hypertension. Gastroesophageal reflux disease. CVA SURGICAL HISTORY : Mastoidectomy. ENCOUNTER: Subsequent ACUITY: 1 week PAIN SCORE: 0/10 LOCATION: Bilateral chest FINDINGS: A single view of the chest demonstrates left basilar density. Levation right hemidiaphragm.. Osseous structures are intact. CONCLUSION: Left basilar density could be atelectasis or infiltrate . Mike Gray MD on December 02, 2017 at 9:55 Board Certified Radiologist. This report was verified electronically.
--- NOTE | 2017-12-02 17:00 | PD.CARD.PN ---
Subjective Subjective Remarks more lucid in nad, [place] so hard to communicate, maybe has dementia Objective Medications Current Medications Medications (Trade) Dose Ordered Sig/Melo Route Start Time Stop Time Status Last Admin (NS Flush) 2 ml UNSCH PRN IV FLUSH 11/27/17 12:15 (Tylenol) 650 mg Q4H PRN PO 11/27/17 15:00 11/29/17 07:16 (Zofran Inj) 4 mg Q6H PRN IVP 11/27/17 15:00 (Narcan Inj) 0.4 mg UNSCH PRN IV PUSH 11/27/17 15:00 (Emili-Colace) 1 tab BID PO 11/27/17 21:00 12/02/17 09:04 (Milk Of Magnesia Liq) 30 ml Q12H PRN PO 11/27/17 15:00 (Senokot) 17.2 mg Q12H PRN PO 11/27/17 15:00 (Dulcolax Supp) 10 mg DAILY PRN RECTAL 11/27/17 15:00 (Lactulose Liq) 30 ml DAILY PRN PO 11/27/17 15:00 (Keppra) 500 mg Q12HR PO 11/28/17 11:00 12/02/17 09:04 (Coumadin) 4 mg DAILY@16 PO 11/28/17 16:00 Future Hold 11/30/17 15:47 (Tylenol-Codeine #3) 1 tab Q4H PRN PO 11/29/17 08:00 12/02/17 04:24 (SoluMEDROL INJ) 40 mg Q8HR IV PUSH 11/29/17 22:00 12/02/17 13:55 (Tessalon) 100 mg TID PRN PO 12/02/17 09:15 12/02/17 10:46 Vital Signs / I&O Vital Signs Date Time Temp Pulse Resp B/P (MAP) Pulse Ox O2 Delivery O2 Flow Rate FiO2 12/02/17 16:00 58 12/02/17 15:00 60 12/02/17 15:00 98.9 64 16 154/70 (98) 95 12/02/17 14:00 62 12/02/17 13:00 63 12/02/17 12:00 61 12/02/17 11:00 62 12/02/17 11:00 62 14 143/69 (93) 96 12/02/17 10:00 64 12/02/17 09:59 95 Nasal Cannula 2.00 12/02/17 09:00 66 12/02/17 08:00 58 12/02/17 08:00 97.8 67 16 146/75 (98) 97 12/02/17 07:00 60 12/02/17 06:05 62 12/02/17 05:33 16 12/02/17 05:00 60 12/02/17 04:00 70 12/02/17 03:00 71 12/02/17 03:00 99.0 70 18 141/65 (90) 97 12/02/17 02:00 72 12/02/17 01:00 72 12/02/17 00:00 70 12/01/17 23:00 86 12/01/17 23:00 98.6 70 18 137/63 (87) 94 12/01/17 22:00 74 12/01/17 21:00 82 12/01/17 20:13 95 Nasal Cannula 2.00 12/01/17 20:00 80 12/01/17 19:00 98.3 85 16 141/64 (89) 92 12/01/17 19:00 82 12/01/17 18:00 80 12/01/17 17:00 84 I/O 12/01/17 12/01/17 12/01/17 12/02/17 12/02/17 12/02/17 07:00 15:00 23:00 07:00 15:00 23:00 Intake Total 960 ml 720 ml 720 ml Output Total 700 ml 325 ml 350 ml Balance 260 ml 395 ml 370 ml Intake Oral 960 ml 720 ml 720 ml Output Urine Total 700 ml 325 ml 350 ml # Bowel Movements 0 Physical Exam GENERAL: SKIN: Warm and dry. HEAD: Normocephalic. EYES: No scleral icterus. No injection or drainage. NECK: Supple, trachea midline. No JVD or lymphadenopathy. CARDIOVASCULAR: Regular rate and rhythm without murmurs, gallops, or rubs. RESPIRATORY: Breath sounds equal bilaterally. No accessory muscle use. GASTROINTESTINAL: Abdomen soft, non-tender, nondistended. MUSCULOSKELETAL: No cyanosis, or edema. BACK: Nontender without obvious deformity. No CVA tenderness. Laboratory Laboratory Tests Test 12/01/17 20:01 12/02/17 03:43 Prothrombin Time 46.2 SEC 46.5 SEC Prothromb Time International Ratio 4.6 RATIO 4.6 RATIO White Blood Count 6.0 TH/MM3 Red Blood Count 3.85 MIL/MM3 Hemoglobin 11.6 GM/DL Hematocrit 34.5 % Mean Corpuscular Volume 89.6 FL Mean Corpuscular Hemoglobin 30.1 PG Mean Corpuscular Hemoglobin Concent 33.6 % Red Cell Distribution Width 14.1 % Platelet Count 197 TH/MM3 Mean Platelet Volume 8.5 FL Neutrophils (%) (Auto) 80.9 % Lymphocytes (%) (Auto) 10.0 % Monocytes (%) (Auto) 8.9 % Eosinophils (%) (Auto) 0.0 % Basophils (%) (Auto) 0.2 % Neutrophils # (Auto) 4.9 TH/MM3 Lymphocytes # (Auto) 0.6 TH/MM3 Monocytes # (Auto) 0.5 TH/MM3 Eosinophils # (Auto) 0.0 TH/MM3 Basophils # (Auto) 0.0 TH/MM3 CBC Comment DIFF FINAL Differential Comment Blood Urea Nitrogen 24 MG/DL Creatinine 1.01 MG/DL Random Glucose 263 MG/DL Calcium Level 9.2 MG/DL Sodium Level 136 MEQ/L Potassium Level 4.1 MEQ/L Chloride Level 101 MEQ/L Carbon Dioxide Level 26.4 MEQ/L Anion Gap 9 MEQ/L Estimat Glomerular Filtration Rate 53 ML/MIN Imaging Last 24 hours Impressions Chest X-Ray 12/02/17 0000 Signed Impressions: Service Date/Time: November 09:31 - CONCLUSION: Left basilar density could be atelectasis or infiltrate . Mike Gray MD Assessment and Plan Problem List: (1) Atrial fibrillation with RVR ICD Codes: I48.91 - Unspecified atrial fibrillation Status: Acute (2) Altered mental status ICD Codes: R41.82 - Altered mental status, unspecified Status: Acute Assessment and Plan 1.) AFib - assymptomatic, rate controlled, coumadin held due to inr>3.0. Problem Qualifiers (1) Altered mental status: Qualified Codes: R41.82 - Altered mental status, unspecified Nathaniel Zhong MD Dec 02, 2017 17:00
--- NOTE | 2017-12-02 17:12 | HHI.PR ---
Subjective Remarks complains of cough no reported pain, son at bedside. Objective Vital Signs Date Time Temp Pulse Resp B/P (MAP) Pulse Ox O2 Delivery O2 Flow Rate FiO2 12/02/17 16:00 58 12/02/17 15:00 60 12/02/17 15:00 98.9 64 16 154/70 (98) 95 12/02/17 14:00 62 12/02/17 13:00 63 12/02/17 12:00 61 12/02/17 11:00 62 12/02/17 11:00 62 14 143/69 (93) 96 12/02/17 10:00 64 12/02/17 09:59 95 Nasal Cannula 2.00 12/02/17 09:00 66 12/02/17 08:00 58 12/02/17 08:00 97.8 67 16 146/75 (98) 97 12/02/17 07:00 60 12/02/17 06:05 62 12/02/17 05:33 16 12/02/17 05:00 60 12/02/17 04:00 70 12/02/17 03:00 71 12/02/17 03:00 99.0 70 18 141/65 (90) 97 12/02/17 02:00 72 12/02/17 01:00 72 12/02/17 00:00 70 12/01/17 23:00 86 12/01/17 23:00 98.6 70 18 137/63 (87) 94 12/01/17 22:00 74 12/01/17 21:00 82 12/01/17 20:13 95 Nasal Cannula 2.00 12/01/17 20:00 80 12/01/17 19:00 98.3 85 16 141/64 (89) 92 12/01/17 19:00 82 12/01/17 18:00 80 12/01/17 17:00 84 I/O 12/01/17 12/01/17 12/01/17 12/02/17 12/02/17 12/02/17 07:00 15:00 23:00 07:00 15:00 23:00 Intake Total 960 ml 720 ml 720 ml Output Total 700 ml 325 ml 350 ml Balance 260 ml 395 ml 370 ml Intake Oral 960 ml 720 ml 720 ml Output Urine Total 700 ml 325 ml 350 ml # Bowel Movements 0 Result Diagram: 12/02/17 0343 12/02/17 0343 Other Results Last 24 hours Impressions Chest X-Ray 12/02/17 0000 Signed Impressions: Service Date/Time: November 09:31 - CONCLUSION: Left basilar density could be atelectasis or infiltrate . Mike Gray MD Objective Remarks hysical Exam GENERAL: This is a well-nourished, well-developed patient, in no apparent distress, [place] SKIN: No rashes, ecchymoses or lesions. Cool and dry. HEAD: Atraumatic. EYES: Pupils equal round and reactive. Extraocular motions intact. No scleral icterus ENT: Nose without bleeding, purulent drainage or septal hematoma. Airway patent. Hard of hearing. NECK: Trachea midline. No JVD or lymphadenopathy. Supple, nontender, no meningeal signs. CARDIOVASCULAR: Regular rate and rhythm without murmurs, gallops, or rubs. RESPIRATORY: Breath sounds equal bilaterally. scattered rhonchi + cough GASTROINTESTINAL: Abdomen soft, non-tender MUSCULOSKELETAL:No edema. LLE tenderness, splint in place NEUROLOGICAL: Awake and alert normal speech Medications and IVs Current Medications Medications (Trade) Dose Ordered Sig/Melo Route Start Time Stop Time Status Last Admin (NS Flush) 2 ml UNSCH PRN IV FLUSH 11/27/17 12:15 (Tylenol) 650 mg Q4H PRN PO 11/27/17 15:00 11/29/17 07:16 (Zofran Inj) 4 mg Q6H PRN IVP 11/27/17 15:00 (Narcan Inj) 0.4 mg UNSCH PRN IV PUSH 11/27/17 15:00 (Emili-Colace) 1 tab BID PO 11/27/17 21:00 12/02/17 09:04 (Milk Of Magnesia Liq) 30 ml Q12H PRN PO 11/27/17 15:00 (Senokot) 17.2 mg Q12H PRN PO 11/27/17 15:00 (Dulcolax Supp) 10 mg DAILY PRN RECTAL 11/27/17 15:00 (Lactulose Liq) 30 ml DAILY PRN PO 11/27/17 15:00 (Keppra) 500 mg Q12HR PO 11/28/17 11:00 12/02/17 09:04 (Coumadin) 4 mg DAILY@16 PO 11/28/17 16:00 Future Hold 11/30/17 15:47 (Tylenol-Codeine #3) 1 tab Q4H PRN PO 11/29/17 08:00 12/02/17 04:24 (SoluMEDROL INJ) 40 mg Q8HR IV PUSH 11/29/17 22:00 12/02/17 13:55 (Tessalon) 100 mg TID PRN PO 12/02/17 09:15 12/02/17 10:46 Assessment and Plan Assessment and Plan Assessment and Plan Problem List: (1) Altered mental status ICD Codes: R41.82 - Altered mental status, unspecified Status: Acute Plan: neurology following, On Keppra, (2) Atrial fibrillation with RVR ICD Codes: I48.91 - Unspecified atrial fibrillation Status: Acute Plan: rate now controlled, on Coumadin (3) Leg pain, left ICD Codes: M79.605 - Pain in left leg Plan: Assessment and Plan Continue Keppra 500 mg bid, for seizure percaution, followed by Neuro. A fib with controlled rate on Coumadin, monitor INR coumadin on hold today INR 4.6 FX fibula- Non operative Splint in place NWB Copd exacerbation- Dr Garcia nelson, Deyvi chavez, Solu Medrol Will need Snf placement Nunu Haddad Dec 02, 2017 17:12
--- NOTE | 2017-12-02 17:59 | HHI.PR ---
Subjective Remarks 77 YOWF with COPD,AF,FAll Breathing better Wheezing improved NULATO Denies sob Objective Vital Signs Vital Signs Date Time Temp Pulse Resp B/P (MAP) Pulse Ox O2 Delivery O2 Flow Rate FiO2 12/02/17 16:00 58 12/02/17 15:00 60 12/02/17 15:00 98.9 64 16 154/70 (98) 95 12/02/17 14:00 62 12/02/17 13:00 63 12/02/17 12:00 61 12/02/17 11:00 62 12/02/17 11:00 62 14 143/69 (93) 96 12/02/17 10:00 64 12/02/17 09:59 95 Nasal Cannula 2.00 12/02/17 09:00 66 12/02/17 08:00 58 12/02/17 08:00 97.8 67 16 146/75 (98) 97 12/02/17 07:00 60 12/02/17 06:05 62 12/02/17 05:33 16 12/02/17 05:00 60 12/02/17 04:00 70 12/02/17 03:00 71 12/02/17 03:00 99.0 70 18 141/65 (90) 97 12/02/17 02:00 72 12/02/17 01:00 72 12/02/17 00:00 70 12/01/17 23:00 86 12/01/17 23:00 98.6 70 18 137/63 (87) 94 12/01/17 22:00 74 12/01/17 21:00 82 12/01/17 20:13 95 Nasal Cannula 2.00 12/01/17 20:00 80 12/01/17 19:00 98.3 85 16 141/64 (89) 92 12/01/17 19:00 82 12/01/17 18:00 80 I/O 12/01/17 12/01/17 12/01/17 12/02/17 12/02/17 12/02/17 06:59 14:59 22:59 06:59 14:59 22:59 Intake Total 960 ml 720 ml 720 ml Output Total 700 ml 325 ml 350 ml Balance 260 ml 395 ml 370 ml Intake Oral 960 ml 720 ml 720 ml Output Urine Total 700 ml 325 ml 350 ml # Bowel Movements 0 Result Diagram: 12/02/17 0343 12/02/17 0343 Objective Remarks GENERAL: MBMN WF NAD SKIN: Warm and dry. HEAD: Normocephalic. EYES: No scleral icterus. No injection or drainage. NECK: Supple, trachea midline. No JVD or lymphadenopathy. CARDIOVASCULAR: Regular rate and rhythm without murmurs, gallops, or rubs. RESPIRATORY: Breath sounds equal bilaterally. No accessory muscle use. GASTROINTESTINAL: Abdomen soft, non-tender, nondistended. MUSCULOSKELETAL: No cyanosis, or edema. BACK: Nontender without obvious deformity. No CVA tenderness. A/P Assessment and Plan COPD with Exac AF with RVR Fall H/o CVA NULATO PLAN: IV Solumedrol Aerosol nebs Controll heart rate Supplement 02 to keep sat >92% Joshua Zelaya MD Dec 02, 2017 17:59
[2017-12-03] VITALS (7 sets, daily range): BP systolic 106–127; BP diastolic 48–63; PULSE 55–69; RESP 16–22; TEMP 97.2–99; O2SAT 94–98
[2017-12-03] MEDS: ACETAMINOPHEN/CODEINE 300 MG/30 MG TAB PO PRN (04:36)
[2017-12-03] MEDS: methylPREDNISolone SOD SUCC 40 MG/1 ML VIAL IV PUSH SCH (06:00)
[2017-12-03 06:10] LABS: INTERNATIONAL NORMALIZED RATIO 3.6 RATIO; PROTHROMBIN TIME - PATIENT 36.4 SEC (9.8-11.6)
--- NOTE | 2017-12-03 09:03 | PD.CARD.PN ---
Subjective Subjective Remarks more lucid in nad, [place] so hard to communicate, maybe has dementia Objective Medications Current Medications Medications (Trade) Dose Ordered Sig/Melo Route Start Time Stop Time Status Last Admin (NS Flush) 2 ml UNSCH PRN IV FLUSH 11/27/17 12:15 (Tylenol) 650 mg Q4H PRN PO 11/27/17 15:00 11/29/17 07:16 (Zofran Inj) 4 mg Q6H PRN IVP 11/27/17 15:00 (Narcan Inj) 0.4 mg UNSCH PRN IV PUSH 11/27/17 15:00 (Emili-Colace) 1 tab BID PO 11/27/17 21:00 12/02/17 20:50 (Milk Of Magnesia Liq) 30 ml Q12H PRN PO 11/27/17 15:00 (Senokot) 17.2 mg Q12H PRN PO 11/27/17 15:00 (Dulcolax Supp) 10 mg DAILY PRN RECTAL 11/27/17 15:00 (Lactulose Liq) 30 ml DAILY PRN PO 11/27/17 15:00 (Keppra) 500 mg Q12HR PO 11/28/17 11:00 12/02/17 20:50 (Coumadin) 4 mg DAILY@16 PO 11/28/17 16:00 Future Hold 11/30/17 15:47 (Tylenol-Codeine #3) 1 tab Q4H PRN PO 11/29/17 08:00 12/03/17 04:36 (SoluMEDROL INJ) 40 mg Q8HR IV PUSH 11/29/17 22:00 12/03/17 06:00 (Tessalon) 100 mg TID PRN PO 12/02/17 09:15 12/02/17 10:46 Vital Signs / I&O Vital Signs Date Time Temp Pulse Resp B/P (MAP) Pulse Ox O2 Delivery O2 Flow Rate FiO2 12/03/17 04:26 98.0 60 20 127/63 (84) 95 12/03/17 04:00 62 12/03/17 00:00 55 12/03/17 00:00 97.9 69 22 122/59 (80) 94 12/02/17 20:29 99 Nasal Cannula 3.00 12/02/17 20:00 63 12/02/17 20:00 97.2 70 26 119/58 (78) 96 12/02/17 18:00 65 12/02/17 17:30 73 12/02/17 16:00 58 12/02/17 15:00 60 12/02/17 15:00 98.9 64 16 154/70 (98) 95 12/02/17 14:00 62 12/02/17 13:00 63 12/02/17 12:00 61 12/02/17 11:00 62 12/02/17 11:00 62 14 143/69 (93) 96 12/02/17 10:00 64 12/02/17 09:59 95 Nasal Cannula 2.00 I/O 12/02/17 12/02/17 12/02/17 12/03/17 12/03/17 12/03/17 07:00 15:00 23:00 07:00 15:00 23:00 Intake Total 720 ml 240 ml 480 ml Output Total 350 ml 400 ml 550 ml Balance 370 ml -160 ml -70 ml Intake Oral 720 ml 240 ml 480 ml Output Urine Total 350 ml 400 ml 550 ml # Bowel Movements 0 Physical Exam GENERAL: SKIN: Warm and dry. HEAD: Normocephalic. EYES: No scleral icterus. No injection or drainage. NECK: Supple, trachea midline. No JVD or lymphadenopathy. CARDIOVASCULAR: Regular rate and rhythm without murmurs, gallops, or rubs. RESPIRATORY: Breath sounds equal bilaterally. No accessory muscle use. GASTROINTESTINAL: Abdomen soft, non-tender, nondistended. MUSCULOSKELETAL: No cyanosis, or edema. BACK: Nontender without obvious deformity. No CVA tenderness. Laboratory Laboratory Tests Test 12/03/17 04:27 Prothrombin Time 36.4 SEC Prothromb Time International Ratio 3.6 RATIO Assessment and Plan Problem List: (1) Atrial fibrillation with RVR ICD Codes: I48.91 - Unspecified atrial fibrillation Status: Acute (2) Altered mental status ICD Codes: R41.82 - Altered mental status, unspecified Status: Acute Assessment and Plan 1.) AFib - assymptomatic, rate controlled, coumadin held due to inr>3.0. Problem Qualifiers (1) Altered mental status: Qualified Codes: R41.82 - Altered mental status, unspecified Nathaniel Zhong MD Dec 03, 2017 09:03
--- NOTE | 2017-12-03 09:43 | HHI.PR ---
Subjective Remarks No apparent distress, MOHEGAN, follows commands, son at bedside Objective Vital Signs Date Time Temp Pulse Resp B/P (MAP) Pulse Ox O2 Delivery O2 Flow Rate FiO2 12/03/17 04:26 98.0 60 20 127/63 (84) 95 12/03/17 04:00 62 12/03/17 00:00 55 12/03/17 00:00 97.9 69 22 122/59 (80) 94 12/02/17 20:29 99 Nasal Cannula 3.00 12/02/17 20:00 63 12/02/17 20:00 97.2 70 26 119/58 (78) 96 12/02/17 18:00 65 12/02/17 17:30 73 12/02/17 16:00 58 12/02/17 15:00 60 12/02/17 15:00 98.9 64 16 154/70 (98) 95 12/02/17 14:00 62 12/02/17 13:00 63 12/02/17 12:00 61 12/02/17 11:00 62 12/02/17 11:00 62 14 143/69 (93) 96 12/02/17 10:00 64 12/02/17 09:59 95 Nasal Cannula 2.00 I/O 12/02/17 12/02/17 12/02/17 12/03/17 12/03/17 12/03/17 07:00 15:00 23:00 07:00 15:00 23:00 Intake Total 720 ml 240 ml 480 ml Output Total 350 ml 400 ml 550 ml Balance 370 ml -160 ml -70 ml Intake Oral 720 ml 240 ml 480 ml Output Urine Total 350 ml 400 ml 550 ml # Bowel Movements 0 Result Diagram: 12/02/17 0343 12/02/17 0343 Other Results INR 3.6 today Objective Remarks hysical Exam GENERAL: This is a well-nourished, well-developed patient, in no apparent distress, [place] SKIN: No rashes, ecchymoses or lesions. Cool and dry. HEAD: Atraumatic. EYES: Pupils equal round and reactive. Extraocular motions intact. No scleral icterus ENT: Nose without bleeding, purulent drainage or septal hematoma. Airway patent. Hard of hearing. NECK: Trachea midline. No JVD or lymphadenopathy. Supple, nontender, no meningeal signs. CARDIOVASCULAR: Regular rate and rhythm without murmurs, gallops, or rubs. RESPIRATORY: Breath sounds equal bilaterally. scattered rhonchi + cough GASTROINTESTINAL: Abdomen soft, non-tender MUSCULOSKELETAL:No edema. LLE tenderness, splint in place NEUROLOGICAL: Awake and alert normal speech Assessment and Plan Assessment and Plan Assessment and Plan Problem List: (1) Altered mental status ICD Codes: R41.82 - Altered mental status, unspecified Status: Acute Plan: neurology following, On Keppra, (2) Atrial fibrillation with RVR ICD Codes: I48.91 - Unspecified atrial fibrillation Status: Acute Plan: rate now controlled, on Coumadin on hold today INR 3.6 (3) Leg pain, left ICD Codes: M79.605 - Pain in left leg Plan: Assessment and Plan Continue Keppra 500 mg bid, for seizure percaution, followed by Neuro. A fib with controlled rate on Coumadin, monitor INR coumadin on hold today INR 3.6 FX fibula- Non operative Splint in place NWB Copd exacerbation- Dr Garcia nelson, Deyvi chavez Solhannah Medrol Will need Snf placement Work with PT today, DC snf when INR stable Nunu Haddad Dec 03, 2017 09:43
[2017-12-03] MEDS: DOCUSATE SODIUM 50 MG/SENNA 8.6 MG TAB PO SCH (09:49)
[2017-12-03] MEDS: levETIRAcetam 500 MG TAB PO SCH (09:49)
--- NOTE | 2017-12-03 11:03 | HHI.DS ---
Discharge Summary Admission Date Nov 27, 2017 at 14:42 Admitting Diagnosis atrial fibrillation with RVR, altered mental status, weakness CBC/BMP: 12/02/17 0343 12/02/17 0343 Significant Findings Laboratory Tests Test 11/30/17 13:00 11/30/17 21:17 12/01/17 20:01 12/02/17 03:43 B-Type Natriuretic Peptide 136 PG/ML (0-100) Troponin I LESS THAN 0.02 NG/ML Prothrombin Time 46.2 SEC (9.8-11.6) 46.5 SEC (9.8-11.6) Red Blood Count 3.85 MIL/MM3 (4.00-5.30) Hematocrit 34.5 % (35.0-46.0) Neutrophils (%) (Auto) 80.9 % (16.0-70.0) Monocytes (%) (Auto) 8.9 % (0.0-8.0) Lymphocytes # (Auto) 0.6 TH/MM3 (1.0-4.8) Blood Urea Nitrogen 24 MG/DL (7-18) Creatinine 1.01 MG/DL (0.50-1.00) Random Glucose 263 MG/DL (74-106) Estimat Glomerular Filtration Rate 53 ML/MIN (>89) Test 12/03/17 04:27 Prothrombin Time 36.4 SEC (9.8-11.6) PE at Discharge hysical Exam GENERAL: This is a well-nourished, well-developed patient, in no apparent distress, [place] SKIN: No rashes, ecchymoses or lesions. Cool and dry. HEAD: Atraumatic. EYES: Pupils equal round and reactive. Extraocular motions intact. No scleral icterus ENT: Nose without bleeding, purulent drainage or septal hematoma. Airway patent. Hard of hearing. NECK: Trachea midline. No JVD or lymphadenopathy. Supple, nontender, no meningeal signs. CARDIOVASCULAR: Regular rate and rhythm without murmurs, gallops, or rubs. RESPIRATORY: Breath sounds equal bilaterally. scattered rhonchi + cough GASTROINTESTINAL: Abdomen soft, non-tender MUSCULOSKELETAL:No edema. LLE tenderness, splint in place NEUROLOGICAL: Awake and alert normal speech Hospital Course Admitted on 11/27/17 after a fall. She was found to have fractured Fibula non operative splinted by ortho, will NWB, She was seen by Neuro for possible seizures started on Kepra 500 mg bid, EEG negative. Cardiology was consulted for new onset of A fib treated with digoxin, and now on Coumadin. rate is currently controlled, INR today is elevated at 3.6 Coumadin on hold. Pulmonary was consulted when she admitted had wheezes and rhonchi related to COPD, treated with Iv solu medrol and Tessalon Pearls. She will be d/c today to SNF, Coumadin held and restarted once < 3.0 Pt Condition on Discharge: Stable Discharge Disposition: Discharge to SNF Discharge Instructions DIET: Follow Instructions for: As Tolerated, No Restrictions, Heart Healthy Diet Speech Therapy-Diet Recommenda: Regular Activities you can perform: Non Weight Bearing Additional Activity Instructio: KIMBERLY LANGLEY, Follow up With Ortho Additional Information Follow up With Dr Mitchell neurology Follow up With Dr Jonathan Hutchinson INR Mon/ Restart Coumadin once INR <3.0 Nunu Haddad Dec 03, 2017 11:03
== END 2017-12-03 14:18 | DRG 309 ==
LOC: NEPE 11:46 → NEDA 14:42 → HCPC 16:03 → HCIS 12-02 16:49
PROVIDERS: ADMIT Family Medicine; ATTEND Family Medicine
PROC: 2W3RX1Z Immobilization of Left Lower Leg using Splint (ICD-10-PCS; principal; 2017-12-01)
DX: I48.91 Unspecified atrial fibrillation (principal); J44.1 Chronic obstructive pulmonary disease with (acute) exacerbation; G93.89 Other specified disorders of brain; I95.9 Hypotension, unspecified; R56.9 Unspecified convulsions; K21.9 Gastro-esophageal reflux disease without esophagitis; F32.9 Major depressive disorder, single episode, unspecified; H91.90 Unspecified hearing loss, unspecified ear; M19.90 Unspecified osteoarthritis, unspecified site; S82.65XA Nondisplaced fracture of lateral malleolus of left fibula, initial encounter for closed fracture; L30.4 Erythema intertrigo; G89.29 Other chronic pain; I10 Essential (primary) hypertension; E78.5 Hyperlipidemia, unspecified; M25.552 Pain in left hip; R29.6 Repeated falls; Z79.01 Long term (current) use of anticoagulants; Z87.891 Personal history of nicotine dependence; Z86.73 Personal history of transient ischemic attack (TIA), and cerebral infarction without residual deficits; W06.XXXA Fall from bed, initial encounter; Z99.3 Dependence on wheelchair; S16.1XXA Strain of muscle, fascia and tendon at neck level, initial encounter; S80.10XA Contusion of unspecified lower leg, initial encounter; M25.551 Pain in right hip; M25.562 Pain in left knee; M25.561 Pain in right knee; W01.0XXA Fall on same level from slipping, tripping and stumbling without subsequent striking against object, initial encounter
CPT/HCPCS: 70450; 70553; 71045; 72125; 73502; 73564; 73600; 80048; 80053; 80162; 81001; 83880; 84484; 84550; 85025; 85610; 85730; 87086; 93005; 93880; 93971; 94150; 94640; 94664; 95819; 96361; 96374; 96375; A9579; J1160; J1650; J2920; J7030

== ENCOUNTER 2017-12-05 02:32 | Inpatient (IN) | payer MEDICARE, OTHER ==
[2017-12-05] VITALS (8 sets, daily range): BP systolic 95–146; BP diastolic 53–74; PULSE 67–91; RESP 16–26; TEMP 97.6–99; O2SAT 90–100
[~2017-12-05] VITALS: Ht 154.9 cm; Wt 98.0 kg
[~2017-12-05 02:32] MED LIST changes: +ALBUAER3 INH; +PROT40TA PO; +RISP0.5T25 PO; +RIVA1.5C PO; -RIVASTIGMINE PO; +SERT-129 PO
[2017-12-05] MEDS ORDERED: SODIUM CHLOR 0.9% 1000 ML INJ 1,000 ML IV SCH ×2 (03:04→05:30)
--- NOTE | 2017-12-05 03:08 | PD ---
HPI Chief Complaint: Altered Mental Status Time Seen by Provider: 03:03 Travel History International Travel<30 days: No Contact w/Intl Traveler<30days: No Traveled to known affect area: No History of Present Illness HPI 77 year-old female presents to the emergency department from local rehabilitation assisted for evaluation of altered mentation 2 days. Patient was recently hospitalized in the beginning of November for evaluation of atrial fibrillation with RVR altered mental status weakness and was identified as well to have a left lower extremity fibular fracture. Patient was evaluated during that time by neurology which identified patient had previous CVA without residua/old right MCA infarct with associated encephalomalacia also seen by pulmonology due to her history of COPD and seen by orthopedic surgeon Dr. Weaver regarding her ankle fracture. Patient has history of arthritis depression dyslipidemia CVA without residual deficit hearing impaired hypertension mastoidectomy atrial fibrillation COPD anxiety depression and wheelchair dependent as non-laboratory, previously on Coumadin therapy. Patient was discharged to rehabilitation facility with lentz catheter in place that was removed yesterday and said has noted that since Lentz catheter was removed patient has been agitated and worsening disorientation and moans frequently with intermittent limited conversational speech. No focal weakness identified. Patient does not appear to be dyspneic and has been reportedly afebrile until during EMS transport reportedly patient was identified to have a fever although this was not reproduced upon arrival to the emergency department. [facility] Past Medical History Narrative Medical arthritis depression dementia dyslipidemia CVA without residual deficit hearing impaired hypertension mastoidectomy atrial fibrillation COPD anxiety depression and wheelchair dependent as non-laboratory, previously on Coumadin therapy; nursing notes reviewed Arthritis: Yes Depression: Yes High Cholesterol: Yes Cerebrovascular Accident: Yes (2007) Diminished Hearing: Yes (BILATERAL AIDS) GERD: Yes Hypertension: Yes Neurologic: Yes Immunizations Current: Yes PNEUMOCCOCAL Vaccine (Year): 3 Menopausal: Yes Past Surgical History Ear Surgery: Yes Tympanostomy Tube: Yes (mastoidectomy) Social History Alcohol Use: Yes (WINE) Tobacco Use: No (unable to answer at this time) Substance Use: No (unable to answer at this time) Allergies-Medications (Allergen,Severity, Reaction): Coded Allergies: latex (Unverified Allergy, Intermediate, RASH, 12/05/17) Reported Meds & Prescriptions Reported Meds & Active Scripts Active Reported Proair Hfa 8.5 GM Inh (Albuterol Sulfate) 90 Mcg/Act Aer 2 Puff INH Q4H PRN 108 mcg/actuation Protonix (Pantoprazole Sodium) 40 Mg Tab 40 Mg PO DAILY Risperdal (Risperidone) 0.5 Mg Tab 0.5 Mg PO HS Sertraline (Sertraline HCl) 100 Mg Tab 100 Mg PO DAILY Rivastigmine 1.5 Mg Cap 1.5 Mg PO BID Review of Systems ROS Limitations: Poor Historian, Other: (son at bedside) Except as stated in HPI: all other systems reviewed are Neg Physical Exam Narrative GENERAL: Obese elderly female in obvious discomfort intermittently moaning and rarely speaking in clear fragments. SKIN: Warm and dry. HEAD: Atraumatic. Normocephalic. EYES: Pupils equal and round. No scleral icterus. No injection or drainage. ENT: No nasal bleeding or discharge. Mucous membranes pink and moist. NECK: Trachea midline. No JVD. CARDIOVASCULAR: Regular rate and rhythm. RESPIRATORY: No accessory muscle use. Clear to auscultation. Breath sounds equal bilaterally. GASTROINTESTINAL: Abdomen soft, diffusely tender to palpation without guarding or rebound, nondistended. Hepatic and splenic margins not palpable. MUSCULOSKELETAL: Extremities without clubbing, cyanosis, or edema. No obvious deformities. Left lower leg with short leg posterior splint and wrapped firmness soft tissue is soft muscle belly is soft and dorsalis pedis pulse 2+ to palpation capillary refill brisk and less than 2 seconds re-wrapped. NEUROLOGICAL: Awake and alert. No obvious cranial nerve deficits. Motor grossly within normal limits. Five out of 5 muscle strength in the arms and legs. Moaning with recurrent intermittent fragments of normal speech PSYCHIATRIC: Appropriate mood and affect; insight and judgment normal. Data Data Last Documented VS Vital Signs Date Time Temp Pulse Resp B/P (MAP) Pulse Ox O2 Delivery O2 Flow Rate FiO2 12/05/17 04:41 75 16 146/71 (96) 98 Nasal Cannula 2.00 12/05/17 02:57 99.0 Orders Orders Electrocardiogram (12/05/17 03:04) Ammonia (12/05/17 03:04) Complete Blood Count With Diff (12/05/17 03:04) Comprehensive Metabolic Panel (12/05/17 03:04) Creatine Kinase (Cpk) (12/05/17 03:04) Prothrombin Time / Inr (Pt) (12/05/17 03:04) Act Partial Throm Time (Ptt) (12/05/17 03:04) Troponin I (12/05/17 03:04) Thyroid Stimulating Hormone (12/05/17 03:04) Urinalysis - C+S If Indicated (12/05/17 03:04) Lactic Acid Sepsis Protocol (12/05/17 03:04) Blood Culture (12/05/17 03:04) Chest, Single Ap (12/05/17 03:04) Ct Brain W/O Iv Contrast(Rout) (12/05/17 03:04) Blood Glucose (12/05/17 03:04) Ecg Monitoring (12/05/17 03:04) Iv Access Insert/Monitor (12/05/17 03:04) Oximetry (12/05/17 03:04) Sodium Chloride 0.9% Flush (Ns Flush) (12/05/17 03:15) Sodium Chlor 0.9% 1000 Ml Inj (Ns 1000 M (12/05/17 03:04) Cath For Specimen (12/05/17 03:04) Ct Abd/Pel W Iv Contrast(Rout) (12/05/17 ) Iohexol 350 Inj (Omnipaque 350 Inj) (12/05/17 03:56) Ondansetron Inj (Zofran Inj) (12/05/17 04:45) Morphine Inj (Morphine Inj) (12/05/17 04:45) Urine Culture (12/05/17 03:20) Tibia/Fibula (Ap/Lat) (12/05/17 ) Sodium Chlor 0.9% 1000 Ml Inj (Ns 1000 M (12/05/17 05:30) Ceftriaxone Inj (Rocephin Inj) (12/05/17 05:45) Admit Order (Ed Use Only) (12/05/17 ) Diet Heart Healthy (12/05/17 Breakfast) Activity Bed Rest (12/05/17 06:24) Notify Dr: Other (12/05/17 06:24) Labs Laboratory Tests Test 12/05/17 03:15 12/05/17 03:20 White Blood Count 7.7 TH/MM3 Red Blood Count 4.28 MIL/MM3 Hemoglobin 12.6 GM/DL Hematocrit 37.8 % Mean Corpuscular Volume 88.3 FL Mean Corpuscular Hemoglobin 29.6 PG Mean Corpuscular Hemoglobin Concent 33.5 % Red Cell Distribution Width 14.0 % Platelet Count 267 TH/MM3 Mean Platelet Volume 8.3 FL Neutrophils (%) (Auto) 69.2 % Lymphocytes (%) (Auto) 20.4 % Monocytes (%) (Auto) 9.6 % Eosinophils (%) (Auto) 0.5 % Basophils (%) (Auto) 0.3 % Neutrophils # (Auto) 5.3 TH/MM3 Lymphocytes # (Auto) 1.6 TH/MM3 Monocytes # (Auto) 0.7 TH/MM3 Eosinophils # (Auto) 0.0 TH/MM3 Basophils # (Auto) 0.0 TH/MM3 CBC Comment DIFF FINAL Differential Comment Prothrombin Time 21.6 SEC Prothromb Time International Ratio 2.1 RATIO Activated Partial Thromboplast Time 25.6 SEC Blood Urea Nitrogen 20 MG/DL Creatinine 0.89 MG/DL Random Glucose 129 MG/DL Total Protein 6.0 GM/DL Albumin 2.3 GM/DL Calcium Level 8.5 MG/DL Alkaline Phosphatase 53 U/L Aspartate Amino Transf (AST/SGOT) 18 U/L Alanine Aminotransferase (ALT/SGPT) 26 U/L Total Bilirubin 0.7 MG/DL Sodium Level 139 MEQ/L Potassium Level 4.0 MEQ/L Chloride Level 100 MEQ/L Carbon Dioxide Level 32.9 MEQ/L Anion Gap 6 MEQ/L Estimat Glomerular Filtration Rate 61 ML/MIN Total Creatine Kinase 66 U/L Troponin I LESS THAN 0.02 NG/ML Thyroid Stimulating Hormone 3rd Gen 1.620 uIU/ML Urine Color YELLOW Urine Turbidity HAZY Urine pH 7.0 Urine Specific [place] 1.050 Urine Protein TRACE mg/dL Urine Glucose (UA) NEG mg/dL Urine Ketones NEG mg/dL Urine Occult Blood TRACE Urine Nitrite POS Urine Bilirubin NEG Urine Urobilinogen LESS THAN 2.0 MG/DL Urine Leukocyte Esterase LARGE Urine RBC 4 /hpf Urine WBC 117 /hpf Urine WBC Clumps FEW Urine Bacteria RARE /hpf Microscopic Urinalysis Comment CATH-CULTURE IND Lactic Acid Level 1.0 mmol/L Ammonia 35 MCMOL/L [facility] Medical Decision Making Medical Screen Exam Complete: Yes Emergency Medical Condition: Yes Medical Record Reviewed: Yes Interpretation(s) EKG normal sinus rhythm no acute ST elevation or injury pattern or ectopy noted Differential Diagnosis Altered mental status, hyperammonemia, CVA, seizure, sepsis, arrhythmia, electrolyte disturbance, thyroid dysfunction/myxedema, hypoglycemia, UTI, compartment syndrome Narrative Course Elderly obese female moaning and intermittently consolable moving bilateral upper extremity and lower extremities symmetrically not able to follow commands with normal range vital signs IV access obtained patient placed on flying teacher with continuous pulse oximetry specimens collected and sent for resulting CT brain noncontrast reveals no acute abnormality chest x-ray reveals no acute findings CBC hematocrit and differential grossly within normal limits Cardiac enzymes found to be in normal range; lactic acid not elevated; TSH is within normal limits; ammonia level mildly elevated Urinary catheter reinserted and urinalysis consistent with infected urine with positive nitrites positive leukocyte Estrace positive white blood cells clumped white blood cells and bacteria cultures indicated patient treated with Rocephin Patient's case discussed with on-call coverage for Dr. Richards will admit to Dr. Archibald services observation Physician Communication Physician Communication discussed with PA for Dr Glass --admit to OBS Diagnosis Primary Impression: Altered mental status Additional Impression: UTI (urinary tract infection) Rosa Fernandez MD Dec 05, 2017 03:08
[2017-12-05] MEDS ORDERED: SODIUM CHLORIDE 0.9% FLUSH 10 ML FLUSH IV FLUSH PRN (03:15)
--- NOTE | 2017-12-05 03:30 | RADRPT ---
EXAM DATE/TIME: 12/05/2017 03:16 [facility] COMPARISON: CHEST SINGLE AP, December 02, 2017, 9:31. INDICATIONS : Syncope MEDICAL HISTORY : Arthritis. Hypercholesterolemia. Hypertension. Gastroesophageal reflux disease. CVA SURGICAL HISTORY : Mastoidectomy. ENCOUNTER: Initial ACUITY: 1 day PAIN SCORE: 0/10 LOCATION: Bilateral chest FINDINGS: A single view of the chest demonstrates mild infiltrate in left lung base. Otherwise, the rest of the lungs remain grossly clear. No new infiltrates compared to the prior study. Heart size is stable. No definite pleural effusions.. The cardiomediastinal contours are unremarkable. Osseous structures a re intact. CONCLUSION: Stable mild infiltrate left lung base. No significant change compared to the prior exam. Piero Hartman MD on December 05, 2017 at 3:27 Board Certified Radiologist. This report was verified electronically.
[2017-12-05 03:40] LABS: AUTOMATED NEUTROPHIL # 5.3 TH/MM3 (1.8-7.7); BASOPHIL % 0.3 % (0.0-2.0); EOSINOPHIL % 0.5 % (0.0-4.0); HEMATOCRIT 37.8 % (35.0-46.0); HEMOGLOBIN 12.6 GM/DL (11.6-15.3); LYMPH % 20.4 % (9.0-44.0); LYMPHOCYTE # 1.6 TH/MM3 (1.0-4.8); MEAN CELL VOLUME 88.3 FL (80.0-100.0); MEAN CORPUSCULAR HEMOGLOBIN 29.6 PG (27.0-34.0); MEAN CORPUSCULAR HGB CONC 33.5 % (32.0-36.0); MEAN PLATELET VOLUME 8.3 FL (7.0-11.0); MONO % 9.6 % (0.0-8.0); MONOCYTE # 0.7 TH/MM3 (0-0.9); NEUT % 69.2 % (16.0-70.0); PLATELET COUNT 267 TH/MM3 (150-450); RED BLOOD COUNT 4.28 MIL/MM3 (4.00-5.30); WHITE BLOOD COUNT 7.7 TH/MM3 (4.0-11.0)
[2017-12-05 03:53] LABS: INTERNATIONAL NORMALIZED RATIO 2.1 RATIO; PROTHROMBIN TIME - PATIENT 21.6 SEC (9.8-11.6)
[2017-12-05] MEDS ORDERED: IOHEXOL 350 MG/ML 10 ML VIAL (for RAD DIAG) IVCONTRAST ONE (03:56)
--- NOTE | 2017-12-05 03:56 | RADRPT ---
EXAM DATE/TIME: 12/05/2017 03:26 [facility] COMPARISON: CT BRAIN W/O CONTRAST, November 27, 2017, 12:40. INDICATIONS : Altered mental status. RADIATION DOSE: 56.35 CTDIvol (mGy) MEDICAL HISTORY : Stroke. Hypertension. SURGICAL HISTORY : Mastoidectomy ENCOUNTER: Initial ACUITY: 1 day PAIN SCALE: Non-responsive LOCATION: cranial TECHNIQUE: Multiple contiguous axial images were obtained of the head. Using automated exposure control and adj ustment of the mA and/or kV according to patient size, radiation dose was kept as low as reasonably a chievable to obtain optimal diagnostic quality images. DICOM format image data is available electro nically for review and comparison. FINDINGS: CEREBRUM: There is diffuse bilateral cortical atrophy and evidence of old previous infarcts involving the right MCA territory. There is stable encephalomalacia compared to the prior study. No focal or acute intra cranial hemorrhage. No mass effect or midline shift. POSTERIOR FOSSA: The cerebellum and brainstem are intact. The 4th ventricle is midline. The cerebellopontine angle i s unremarkable. EXTRACRANIAL: The visualized portion of the orbits is intact. SKULL: The calvaria is intact. No evidence of skull fracture. CONCLUSION: 1. No acute intracranial hemorrhage. 2. Stable CT scan of the brain compared to the prior examination. 3. Old right MCA infarct. Piero Hartamn MD on December 05, 2017 at 3:52 Board Certified Radiologist. This report was verified electronically.
--- NOTE | 2017-12-05 04:03 | RADRPT ---
EXAM DATE/TIME: 12/05/2017 03:29 [facility] COMPARISON: No previous studies available for comparison. INDICATIONS : Abdomen pain. IV CONTRAST: 100 cc Omnipaque 350 (iohexol) IV ORAL CONTRAST: No oral contrast ingested. RADIATION DOSE: 18.35 CTDIvol (mGy) ; Patient body habitus MEDICAL HISTORY : Hypertension. Stroke SURGICAL HISTORY : None. ENCOUNTER: Initial ACUITY: 1 day PAIN SCALE: 5/10 LOCATION: Bilateral abdomen TECHNIQUE: Volumetric scanning of the abdomen and pelvis was performed. Using automated exposure control and ad justment of the mA and/or kV according to patient size, radiation dose was kept as low as reasonably achievable to obtain optimal diagnostic quality images. DICOM format image data is available electro nically for review and comparison. FINDINGS: LOWER LUNGS: Scattered infiltrates in both lung bases. Moderate hiatal hernia the GE junction. LIVER: Homogeneous density without lesion. There is no dilation of the biliary tree. No calcified gallston es. SPLEEN: Normal size without lesion. PANCREAS: Within normal limits. KIDNEYS: Normal in size and shape. There is no mass, stone or hydronephrosis. ADRENAL GLANDS: Within normal limits. VASCULAR: There is no aortic aneurysm. BOWEL/MESENTERY: The stomach, small bowel, and colon demonstrate no acute abnormality. There is no free intraperitone al air or fluid. A few small scattered diverticula in the sigmoid colon. No inflammatory changes. ABDOMINAL WALL: Within normal limits. RETROPERITONEUM: There is no lymphadenopathy. BLADDER: No wall thickening or mass. REPRODUCTIVE: Within normal limits. INGUINAL: There is no lymphadenopathy or hernia. MUSCULOSKELETAL: Diffuse degenerative changes of the lumbar spine and pelvis. There is curvature of the lumbar spine t o the left. CONCLUSION: 1. Moderate hiatal hernia the GE junction. 2. Scattered bibasilar infiltrates. 3. Scattered diverticulosis of the sigmoid colon without inflammatory changes. 4. No acute pathology. Piero Hartman MD on December 05, 2017 at 3:58 Board Certified Radiologist. This report was verified electronically.
[2017-12-05 04:18] LABS: ALBUMIN 2.3 GM/DL (3.4-5.0); ALKALINE PHOSPHATASE 53 U/L (45-117); ALT (GPT) 26 U/L (10-53); AST (GOT) 18 U/L (15-37); BICARBONATE 32.9 MEQ/L (21.0-32.0); BLOOD UREA NITROGEN 20 MG/DL (7-18); CALCIUM 8.5 MG/DL (8.5-10.1); CHLORIDE 100 MEQ/L (98-107); CREATININE 0.89 MG/DL (0.50-1.00); GLOMERULAR FILTRATION RATE 61 ML/MIN (>89); GLUCOSE,RANDOM 129 MG/DL (74-106); SODIUM (NA) 139 MEQ/L (136-145); TOTAL BILIRUBIN ADULT 0.7 MG/DL (0.2-1.0); TROPONIN I LESS THAN 0.02 NG/ML (0.02-0.05)
[2017-12-05] MEDS ORDERED: ONDANSETRON HCL 4 MG/2 ML VIAL IV PUSH ONE (04:45)
[2017-12-05] MEDS ORDERED: MORPHINE SULFATE 2 MG/ML INJ IV PUSH ONE (04:45)
[2017-12-05 05:21] LABS: BACTERIA, URINE RARE /hpf; BILIRUBIN, URINE NEG (NEG); BLOOD, URINE TRACE (NEG); GLUCOSE,URINE NEG (NEG); KETONE, URINE NEG (NEG); NITRITE,URINE POS (NEG); URINE COLOR YELLOW (YELLW/STRAW); URINE LEUKOCYTE ESTERASE LARGE (NEG); WHITE BLOOD CELL CLUMPS FEW
[2017-12-05] MEDS ORDERED: cefTRIAXone INJ 1,000 MG in SODIUM CHLORIDE 0.9% INJ 100 ML IV ONE (05:45)
--- NOTE | 2017-12-05 06:18 | RADRPT ---
EXAM DATE/TIME: 12/05/2017 05:43 [facility] COMPARISON: ANKLE LEFT LIMITED (AP&LAT), November 29, 2017, 12:44. INDICATIONS : Evaluate the known fibula fracture from one week ago. MEDICAL HISTORY : Arthritis. Hypercholesterolemia. Hypertension. GERD CVA Stroke SURGICAL HISTORY : None. ENCOUNTER: Subsequent ACUITY: 1 week PAIN SCORE: Non-responsive. LOCATION: Left fibula FINDINGS: There has been no change in the alignment or position of the spiral fracture involving the distal fib addis. There is overlying cast material in place. There is good position at the mortise joint. No new o r significant changes. CONCLUSION: No change in the spiral fracture of the distal fibula. Piero Hartman MD on December 05, 2017 at 6:15 Board Certified Radiologist. This report was verified electronically.
[2017-12-05] MEDS ORDERED: SODIUM CHLORID 0.9% 500 ML INJ 500 ML IV ONE (07:15)
[2017-12-05] MEDS ORDERED: LACTULOSE SYRUP 20 GM/30 ML CUP PO PRN (08:15)
[2017-12-05] MEDS ORDERED: MAGNESIUM HYDROXIDE SUSP 30 ML CUP PO PRN (08:15)
[2017-12-05] MEDS ORDERED: BISACODYL 10 MG SUPP RECTAL PRN (08:15)
[2017-12-05] MEDS ORDERED: ONDANSETRON HCL 4 MG/2 ML VIAL IVP PRN (08:15)
[2017-12-05] MEDS ORDERED: NALOXONE HCL 0.4 MG/ML AMP IV PUSH PRN (08:15)
[2017-12-05] MEDS ORDERED: SENNOSIDES 8.6 MG TAB PO PRN (08:15)
[2017-12-05] MEDS ORDERED: ACETAMINOPHEN 325 MG TAB PO PRN (08:15)
[2017-12-05] MEDS: DOCUSATE SODIUM 50 MG/SENNA 8.6 MG TAB PO SCH ×2 (09:00→21:00)
[2017-12-05] MEDS: levETIRAcetam 500 MG TAB PO SCH ×3 (09:00→21:08)
[2017-12-05] MEDS ORDERED: SODIUM CHLOR 0.45% 1000 ML INJ 1,000 ML IV SCH (09:00)
[2017-12-05] MEDS ORDERED: WARFARIN SOD 2 MG TAB PO ONE (09:30)
[2017-12-05] MEDS ORDERED: WARF-20 PO (12:08)
[2017-12-05] MEDS ORDERED: WARF-58 PO (12:08)
[2017-12-05] MEDS ORDERED: BUSP5TAB PO (12:10)
--- NOTE | 2017-12-05 13:25 | HHI.HP ---
History of Present Illness Service Family Practice Primary Care Physician Braydon Glass, DO Admission Diagnosis AMS, UTI, poss cva Diagnoses: Review of Systems ROS Limitations: Altered Mental Status Constitutional: DENIES: Fever, Chills, Change in appetite Endocrine: DENIES: Heat/cold intolerance Respiratory: DENIES: Apneas, Cough, Snoring, Wheezing, Hemoptysis, Sputum production, Shortness of breath Cardiovascular: DENIES: Chest pain, Palpitations, Syncope, Dyspnea on Exertion , PND, Lower Extremity Edema, Orthopnea, Claudication Genitourinary: COMPLAINS OF: Urinary frequency Musculoskeletal: COMPLAINS OF: Joint pain, Muscle aches Neurologic: COMPLAINS OF: Seizures Psychiatric: COMPLAINS OF: Confusion Past Family Social History Allergies: Coded Allergies: latex (Unverified Allergy, Intermediate, RASH, 12/05/17) Past Medical History H/O previous CVA in MCA distribution, S/P fracture left fibula after a fall. She has COPD. Reported Medications Current Medications Medications (Trade) Dose Ordered Sig/Melo Route Start Time Stop Time Status Last Admin (NS Flush) 2 ml UNSCH PRN IV FLUSH 12/05/17 03:15 Sodium Chloride 1,000 ml @ 75 mls/hr [id number] IV 12/05/17 09:00 12/05/17 11:28 (Tylenol) 650 mg Q4H PRN PO 12/05/17 08:15 (Zofran Inj) 4 mg Q6H PRN IVP 12/05/17 08:15 (Narcan Inj) 0.4 mg UNSCH PRN IV PUSH 12/05/17 08:15 (Emili-Colace) 1 tab BID PO 12/05/17 09:00 (Milk Of Magnesia Liq) 30 ml Q12H PRN PO 12/05/17 08:15 (Senokot) 17.2 mg Q12H PRN PO 12/05/17 08:15 (Dulcolax Supp) 10 mg DAILY PRN RECTAL 12/05/17 08:15 (Lactulose Liq) 30 ml DAILY PRN PO 12/05/17 08:15 (Keppra) 500 mg Q12HR PO 12/05/17 09:00 Levetriacetam 500 mg/Sodium Chloride 105 ml @ 420 mls/hr BOLUS IV 12/05/17 13:15 UNV (Lovenox Inj) 30 mg Q12H SQ 12/05/17 13:15 UNV Sodium Chloride 1,000 ml @ 84 mls/hr [id number] IV 12/05/17 13:15 UNV Family History Unable to obtain due to confusion. Social History Currently resides at a SNF. Denies cigs and occ glass of wine according to spouse. Physical Exam Vital Signs Vital Signs Date Time Temp Pulse Resp B/P (MAP) Pulse Ox O2 Delivery O2 Flow Rate FiO2 12/05/17 07:05 67 18 113/68 (83) 100 Nasal Cannula 2.00 12/05/17 04:41 75 16 146/71 (96) 98 Nasal Cannula 2.00 12/05/17 04:12 16 96 Nasal Cannula 2.00 12/05/17 03:29 82 16 96 Nasal Cannula 2.00 12/05/17 02:57 99.0 74 16 95/53 (67) 95 Nasal Cannula 3.00 Physical Exam GENERAL: This is a well-nourished, well-developed patient, confused and vocalizing but in no apparent distress. SKIN: No rashes, ecchymoses or lesions. Cool and dry. HEAD: Atraumatic. Normocephalic. No temporal or scalp tenderness. EYES: Pupils equal round and reactive. Extraocular motions intact. No scleral icterus. No injection or drainage. ENT: Nose without bleeding, purulent drainage or septal hematoma. Throat without erythema, tonsillar hypertrophy or exudate. Uvula midline. Airway patent. NECK: Trachea midline. No JVD or lymphadenopathy. Supple, nontender, no meningeal signs. CARDIOVASCULAR: Difficult to auscultate due to constant vocalizations. RESPIRATORY: Unable to hear breath sounds due to constant vocalizations. GASTROINTESTINAL: Abdomen soft, non-tender, nondistended. No hepato-splenomegaly , or palpable masses. No guarding. MUSCULOSKELETAL: Extremities without clubbing, cyanosis, or edema. Splint is present on the LLE. NEUROLOGICAL: Awake but not oriented or responding to questions except once she replied OK when asked about how she felt. Laboratory Laboratory Tests Test 12/05/17 03:15 12/05/17 03:20 12/05/17 12:55 White Blood Count 7.7 Red Blood Count 4.28 Hemoglobin 12.6 Hematocrit 37.8 Mean Corpuscular Volume 88.3 Mean Corpuscular Hemoglobin 29.6 Mean Corpuscular Hemoglobin Concent 33.5 Red Cell Distribution Width 14.0 Platelet Count 267 Mean Platelet Volume 8.3 Neutrophils (%) (Auto) 69.2 Lymphocytes (%) (Auto) 20.4 Monocytes (%) (Auto) 9.6 Eosinophils (%) (Auto) 0.5 Basophils (%) (Auto) 0.3 Neutrophils # (Auto) 5.3 Lymphocytes # (Auto) 1.6 Monocytes # (Auto) 0.7 Eosinophils # (Auto) 0.0 Basophils # (Auto) 0.0 CBC Comment DIFF FINAL Differential Comment Prothrombin Time 21.6 Prothromb Time International Ratio 2.1 Activated Partial Thromboplast Time 25.6 Blood Urea Nitrogen 20 Creatinine 0.89 Random Glucose 129 Total Protein 6.0 Albumin 2.3 Calcium Level 8.5 Alkaline Phosphatase 53 Aspartate Amino Transf (AST/SGOT) 18 Alanine Aminotransferase (ALT/SGPT) 26 Total Bilirubin 0.7 Sodium Level 139 Potassium Level 4.0 Chloride Level 100 Carbon Dioxide Level 32.9 Anion Gap 6 Estimat Glomerular Filtration Rate 61 Total Creatine Kinase 66 Troponin I LESS THAN 0.02 Thyroid Stimulating Hormone 3rd Gen 1.620 Urine Color YELLOW Urine Turbidity HAZY Urine pH 7.0 Urine Specific [place] 1.050 Urine Protein TRACE Urine Glucose (UA) NEG Urine Ketones NEG Urine Occult Blood TRACE Urine Nitrite POS Urine Bilirubin NEG Urine Urobilinogen LESS THAN 2.0 Urine Leukocyte Esterase LARGE Urine RBC 4 Urine WBC 117 Urine WBC Clumps FEW Urine Bacteria RARE Microscopic Urinalysis Comment CATH-CULTURE IND Lactic Acid Level 1.0 Ammonia 35 Date/Time Source Procedure Growth Status 12/05/17 03:20 Blood Peripheral Aerobic Blood Culture Pending Received 12/05/17 03:20 Blood Peripheral Anaerobic Blood Culture Pending Received 12/05/17 03:20 Urine Catheterized Urine Urine Culture Pending Received Result Diagram: 12/05/1731412/05/17314 Imaging Last [address] 12/05/17303 Signed Impressions: Service Date/Time: Tuesday, December 05, 2017 03:26 - CONCLUSION: 1. No acute intracranial hemorrhage. 2. Stable CT scan of the brain compared to the prior examination. 3. Old right MCA infarct. Piero Hartman MD Chest X-Ray 12/05/17303 Signed Impressions: Service Date/Time: Tuesday, December 05, 2017 03:16 - CONCLUSION: Stable mild infiltrate left lung base. No significant change compared to the prior exam. Piero Hartman MD Tibia/Fibula X-Ray 12/05/17 0000 Signed Impressions: Service Date/Time: Tuesday, December 05, 2017 05:43 - CONCLUSION: No change in the spiral fracture of the distal fibula. Piero Hartman MD Abdomen/Pelvis CT 12/05/17 0000 Signed Impressions: Service Date/Time: Tuesday, December 05, 2017 03:29 - CONCLUSION: 1. Moderate hiatal hernia the GE junction. 2. Scattered bibasilar infiltrates. 3. Scattered diverticulosis of the sigmoid colon without inflammatory changes. 4. No acute pathology. Piero Hartman MD Course Presented to ED and is confused and not responding to questions and vocalizing. Caprini VTE Risk Assessment Caprini VTE Risk Assessment: Mod/High Risk (score >= 2) Caprini Risk Assessment Model Point Value = 1 Point Value = 2 Point Value = 3 Point Value = 5 Age 41-60 Minor surgery BMI > 25 kg/m2 Swollen legs Varicose veins or History of unexplained or recurrent spontaneous Oral contraceptives or hormone replacement Sepsis (< 1 month) Serious lung disease, including pneumonia (< 1 month) Abnormal pulmonary function Acute myocardial infarction Congestive heart failure (< 1 month) History of inflammatory bowel disease Medical patient at bed rest Age 61-74 Arthroscopic surgery Major open surgery (> 45 min) Laparoscopic surgery (> 45 min) Malignancy Confined to bed (> 72 hours) Immobilizing plaster cast Central venous access Age >= 75 History of VTE Family history of VTE Factor V Leiden Prothrombin [id number] Lupus anticoagulant Anticardiolipin antibodies Elevated serum homocysteine Heparin-induced thrombocytopenia Other congenital or acquired thrombophilia Stroke (< 1 month) Elective arthroplasty Hip, pelvis, or leg fracture Acute spinal cord injury (< 1 month) Prophylaxis Regimen Total Risk Factor Score Risk Level Prophylaxis Regimen 0-1 Low Early ambulation 2 Moderate Order ONE of the following: *Sequential Compression Device (SCD) *Heparin 5000 units SQ BID 3-4 Higher Order ONE of the following medications: *Heparin 5000 units SQ TID *Enoxaparin/Lovenox 40 mg SQ daily (WT < 150 kg, CrCl > 30 mL/min) *Enoxaparin/Lovenox 30 mg SQ daily (WT < 150 kg, CrCl > 10-29 mL/min) *Enoxaparin/Lovenox 30 mg SQ BID (WT < 150 kg, CrCl > 30 mL/min) AND/OR *Sequential Compression Device (SCD) 5 or more Highest Order ONE of the following medications: *Heparin 5000 units SQ TID (Preferred with Epidurals) *Enoxaparin/Lovenox 40 mg SQ daily (WT < 150 kg, CrCl > 30 mL/min) *Enoxaparin/Lovenox 30 mg SQ daily (WT < 150 kg, CrCl > 10-29 mL/min) *Enoxaparin/Lovenox 30 mg SQ BID (WT < 150 kg, CrCl > 30 mL/min) AND *Sequential Compression Device (SCD) Fabrice William Dec 05, 2017 13:25
[2017-12-05] MEDS ORDERED: levETIRAcetam INJ 500 MG in SODIUM CHLORIDE 0.9% INJ 100 ML IV ONE (14:00)
[2017-12-05] MEDS: SODIUM CHLOR 0.9% 1000 ML INJ 1,000 ML IV SCH (15:39)
[2017-12-05] MEDS: ENOXAPARIN SODIUM 30 MG/0.3 ML SYRINGE SQ SCH (16:00)
--- NOTE | 2017-12-05 17:42 | EKG ---
Date Performed: 12/05/2017 Time Performed: 04:08:47 PTAGE: 77 years EKG: Sinus rhythm WITH SINUS ARRHYTHMIA NORMAL ECG PREVIOUS TRACING : 11/29/2017 18.19 Since previous tracing, no significant change noted DOCTOR: Bj Stewart Interpretating Date/Time 12/05/2017 17:42:08
[2017-12-06] VITALS: BP 114/64; PULSE 94; RESP 20; TEMP 98.9; O2SAT 93
[2017-12-06] MEDS: ENOXAPARIN SODIUM 30 MG/0.3 ML SYRINGE SQ SCH ×2 (04:23→20:33)
[2017-12-06 05:23] VITALS: BP 117/63; PULSE 96; RESP 21; TEMP 98; O2SAT 95
[2017-12-06 07:28] VITALS: BP 109/69; PULSE 85; RESP 18; TEMP 98.1; O2SAT 90
[2017-12-06 08:15] VITALS: PULSE 66; PULSE 80
[2017-12-06 08:44] LABS: ALBUMIN 2.1 GM/DL (3.4-5.0); AST (GOT) 13 U/L (15-37); BICARBONATE 29.5 MEQ/L (21.0-32.0); BLOOD UREA NITROGEN 13 MG/DL (7-18); CALCIUM 8.6 MG/DL (8.5-10.1); CHLORIDE 102 MEQ/L (98-107); CREATININE 0.84 MG/DL (0.50-1.00); GLOMERULAR FILTRATION RATE 65 ML/MIN (>89); GLUCOSE,RANDOM 119 MG/DL (74-106); SODIUM (NA) 138 MEQ/L (136-145)
[2017-12-06 08:46] LABS: ALT (GPT) 18 U/L (10-53)
[2017-12-06 08:47] LABS: ALKALINE PHOSPHATASE 46 U/L (45-117); TOTAL BILIRUBIN ADULT 0.6 MG/DL (0.2-1.0); TOTAL PROTEIN 5.9 GM/DL (6.4-8.2)
[2017-12-06] MEDS: cefTRIAXone INJ 1,000 MG in SODIUM CHLORIDE 0.9% INJ 100 ML IV SCH (08:53)
[2017-12-06] MEDS: DOCUSATE SODIUM 50 MG/SENNA 8.6 MG TAB PO SCH ×2 (09:00→22:30)
--- NOTE | 2017-12-06 09:57 | MB ---
cc: TREVOR MADDOX MD DATE OF CONSULTATION: 12/06/2017 REASON FOR CONSULTATION Altered mental status, seizure and history of stroke. HISTORY OF PRESENT ILLNESS Ms. Smith is a 77-year-old female who presented to the [facility] Emergency Department from a local rehab care home for evaluation of altered mental status of 2 days. The patient was recently hospitalized in the beginning of November for evaluation of atrial fibrillation, RVR and altered mental status. She was seen by Dr. Mitchell of neurology and neurologic workup revealed head CT scan with a remote right MCA with no residual deficit, as per who is at the bedside. She was also treated for an episode of fall and loss of consciousness and seizures, and she is currently on Keppra 500 mg twice daily. Review of the EEG that was done at that time was normal with no ictal activity. The patient is [id number]-epllbwc, and she also has sustained left fibular fracture. She was found to have an acute UTI during this admission. During the encounter the patient is lethargic, minimally verbal, at the bedside, looks dehydrated, crusts on the lips and moans frequently. REVIEW OF SYSTEMS 12-point review of systems is negative except for what is stated in the HPI. PAST MEDICAL HISTORY 1. Arthritis. 2. Depression. 3. Dementia. 4. Hyperlipidemia. 5. Right MCA stroke without residual deficit. 6. Hypertension. 7. Mastoidectomy. 8. Atrial fibrillation. 9. COPD. 10. Anxiety depression. 11. She is wheelchair dependent. 12. [id number]. PAST SURGICAL HISTORY Ear surgery and mastoidectomy. SOCIAL HISTORY Drinks wine. No reported information about tobacco and substance abuse. ALLERGIES Latex. MEDICATIONS 1. Pro-Air. 2. Protonix. 3. Risperidone. 4. Sertraline. 5. Rivastigmine. PHYSICAL EXAMINATION GENERAL: Lethargic, looks dehydrated, moaning, in mild distress. Morbidly obese. HEENT: Atraumatic, normocephalic. Bncy-aa-[id number]. No injection of the eyes. Looks dehydrated. Crusted lips. Dry tongue. NECK: Supple. No signs of meningeal irritation. CARDIOVASCULAR: Regular rate and rhythm. RESPIRATORY: Clear to auscultation. GASTROINTESTINAL: Soft abdomen. Nontender. MUSCULOSKELETAL: No cyanosis, edema or clubbing. Left lower posterior splint wrapped muscle. NEUROLOGIC: Awake, lethargic, moaning all the time, minimally verbal, follows simple commands. Unable to assess motor sensory or cerebellar function because a lot of give-way and lack of cooperation during the exam. She generally has lost a great deal of muscle bulk but no fasciculation. PSYCHIATRIC: In mild distress. No hallucinations. DIAGNOSTIC STUDIES - CT scan without contrast revealed no acute intracranial hemorrhage, stable CT compared to prior exam, old right MCA infarct. LABORATORY DATA - WBC 7.7, hemoglobin 12.6, platelet 267. Sodium 139, potassium 4, BUN 20, creatinine 0.89, INR 2.1. Urine revealed urine leukocyte esterase positive for large, urine occult blood trace, urine nitrate positive. DIAGNOSTIC IMPRESSION 1. Encephalopathy. Likely secondary to metabolic or infectious etiology. 2. Acute UTI. 3. History of seizure. 4. Right MCA. 5. Atrial fibrillation. PLAN 1. Neuro checks q. 4 hourly. 2. MRI brain. 3. Continue Keppra 500 mg twice daily. Continue supportive medical therapy and antibiotics as per attending team. 4. DVT prophylaxis. 5. GI prophylaxis. Thank you for the opportunity to participate in the care of the patient. MD HARITHA Gan/JENNI /8:41 AM /9:21 AM THANH
[2017-12-06 11:25] VITALS: BP 128/67; PULSE 83; RESP 18; TEMP 99; O2SAT 90
[2017-12-06] MEDS: levETIRAcetam 500 MG TAB PO SCH ×2 (12:25→22:30)
[2017-12-06] MEDS: SODIUM CHLOR 0.9% 1000 ML INJ 1,000 ML IV SCH ×2 (12:27→18:24)
--- NOTE | 2017-12-06 13:16 | HHI.PR ---
Subjective Remarks Not talking, moaning when you touch her Objective Vital Signs Date Time Temp Pulse Resp B/P (MAP) Pulse Ox O2 Delivery O2 Flow Rate FiO2 12/06/17 11:25 99.0 83 18 128/67 (87) 90 12/06/17 07:28 98.1 85 18 109/69 (82) 90 12/06/17 05:23 98.0 96 21 117/63 (81) 95 12/06/17 00:00 98.9 94 20 114/64 (81) 93 12/05/17 20:00 98.4 89 19 108/74 (85) 97 12/05/17 17:39 97.6 91 26 111/55 (73) 90 12/05/17 16:36 12/05/17 14:00 76 16 108/57 (74) 97 Nasal Cannula 2.00 I/O 12/05/17 12/05/17 12/05/17 12/06/17 12/06/17 12/06/17 07:00 15:00 23:00 07:00 15:00 23:00 Intake Total 850 ml 405 ml Output Total 950 ml Balance 850 ml 405 ml -950 ml Intake IV Total 850 ml 405 ml Output Urine Total 950 ml Result Diagram: 12/05/17 0315 12/06/17 0810 Other Results Microbiology Date/Time Source Procedure Growth Status 12/05/17 03:20 Blood Peripheral Aerobic Blood Culture - Preliminary NO GROWTH IN 1 DAY Resulted 12/05/17 03:20 Blood Peripheral Anaerobic Blood Culture - Preliminary NO GROWTH IN 1 DAY Resulted 12/05/17 03:15 Blood Peripheral Aerobic Blood Culture - Preliminary Gram Positive Cocci Resulted 12/05/17 03:15 Anaerobic Blood Culture - Preliminary Gram Positive Cocci Resulted 12/05/17 03:20 Urine Catheterized Urine Urine Culture Pending Received Laboratory Tests Test 12/05/17 03:15 12/05/17 03:20 12/05/17 12:55 12/06/17 08:10 Monocytes (%) (Auto) 9.6 % (0.0-8.0) Prothrombin Time 21.6 SEC (9.8-11.6) Blood Urea Nitrogen 20 MG/DL (7-18) Random Glucose 129 MG/DL (74-106) 119 MG/DL (74-106) Total Protein 6.0 GM/DL (6.4-8.2) 5.9 GM/DL (6.4-8.2) Albumin 2.3 GM/DL (3.4-5.0) 2.1 GM/DL (3.4-5.0) Carbon Dioxide Level 32.9 MEQ/L (21.0-32.0) Estimat Glomerular Filtration Rate 61 ML/MIN (>89) 65 ML/MIN (>89) Troponin I LESS THAN 0.02 NG/ML Urine Turbidity HAZY (CLEAR) Urine Specific [place] 1.050 (1.002-1.035) Urine Occult Blood TRACE (NEG) Urine Nitrite POS (NEG) Urine Leukocyte Esterase LARGE (NEG) Urine RBC 4 /hpf (0-3) Urine WBC 117 /hpf (0-5) Urine WBC Clumps FEW (NONE) Urine Bacteria RARE /hpf (NONE) Ammonia 35 MCMOL/L (11-32) Aspartate Amino Transf (AST/SGOT) 13 U/L (15-37) Objective Remarks Physical Exam GENERAL: This is a well-nourished, well-developed patient, non verbal, in no apparent distress, when left alone. SKIN: No rashes, ecchymoses or lesions. Cool and dry. HEAD: Atraumatic. Normocephalic. No temporal or scalp tenderness. EYES: Pupils equal round and reactive. Extraocular motions intact. No scleral icterus. No injection or drainage. ENT: Nose without bleeding, purulent drainage or septal hematoma. Throat without erythema, tonsillar hypertrophy or exudate. Uvula midline. Airway patent. NECK: Trachea midline. No JVD or lymphadenopathy. Supple, nontender, no meningeal signs. CARDIOVASCULAR: Difficult to auscultate due to constant vocalizations. RESPIRATORY Scattered: Rhonchi, diminished at base GASTROINTESTINAL: Abdomen soft, non-tender, nondistended. No hepato-splenomegaly , or palpable masses. No guarding. MUSCULOSKELETAL: Extremities without clubbing, cyanosis, or edema. Splint is present on the LLE. NEUROLOGICAL: Awake but not oriented or responding, moans when you attempt to touch her Medications and IVs Current Medications Medications (Trade) Dose Ordered Sig/Melo Route Start Time Stop Time Status Last Admin (NS Flush) 2 ml UNSCH PRN IV FLUSH 12/05/17 03:15 (Tylenol) 650 mg Q4H PRN PO 12/05/17 08:15 (Zofran Inj) 4 mg Q6H PRN IVP 12/05/17 08:15 (Narcan Inj) 0.4 mg UNSCH PRN IV PUSH 12/05/17 08:15 (Emili-Colace) 1 tab BID PO 12/05/17 09:00 12/06/17 09:00 (Milk Of Magnesia Liq) 30 ml Q12H PRN PO 12/05/17 08:15 (Senokot) 17.2 mg Q12H PRN PO 12/05/17 08:15 (Dulcolax Supp) 10 mg DAILY PRN RECTAL 12/05/17 08:15 (Lactulose Liq) 30 ml DAILY PRN PO 12/05/17 08:15 (Keppra) 500 mg Q12HR PO 12/05/17 09:00 12/06/17 12:25 (Lovenox Inj) 30 mg Q12H SQ 12/05/17 16:00 12/06/17 04:23 Sodium Chloride 1,000 ml @ 84 mls/hr [id number] IV 12/05/17 13:15 12/06/17 12:27 Ceftriaxone Sodium 1000 mg/ Sodium Chloride 100 ml @ 200 mls/hr Q24H IV 12/06/17 08:00 12/06/17 08:53 Assessment and Plan Assessment and Plan AMS/ Encephalopathy- Neuro consulted, npo until swallow eval complete Cont Keppra 500 mg bid UTI-culture pending, cont with Rocephin Positive blood cultures- ID consulted A fib- Coumadin held r/t swallow, cover with Lovenox, rate controlled GI/ DVT prophylaxis- Lovenox PPI Nunu Haddad Dec 06, 2017 13:16
--- NOTE | 2017-12-06 13:49 | PD.ID.CON ---
History of Present Illness Service ID Consult Requested By Dr Haddad Reason for Consult gram positive bacteremia Primary Care Physician Non-Staff Diagnoses: History of Present Illness Pt is unable to provide history and is essentially non verbal All history obtained from the chart 77 yo female with multiple medical problem sp recent L tib/fib fracture in the beginning of November - managed conservatively presented to ER yesterday from local rehabilitation [facility] for evaluation of altered mental status 2 days. Patient was discharged to rehabilitation facility with lentz catheter in place that was removed yesterday and said has noted that since Lentz catheter was removed patient has been agitated and worsening disorientation and moans frequently with intermittent limited conversational speech. 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 She has COPD. Past Surgical History mastoidectomy Active Ordered Medications Medications where reviewed in EMR Antibiotics Include: rocephine Family History Unable to obtain due to confusion. Social History Currently resides at a SNF. Denies cigs and occ glass of wine according to spouse. Physical Exam Vital Signs Vital Signs Date Time Temp Pulse Resp B/P (MAP) Pulse Ox O2 Delivery O2 Flow Rate FiO2 12/06/17 11:25 99.0 83 18 128/67 (87) 90 12/06/17 07:28 98.1 85 18 109/69 (82) 90 12/06/17 05:23 98.0 96 21 117/63 (81) 95 12/06/17 00:00 98.9 94 20 114/64 (81) 93 12/05/17 20:00 98.4 89 19 108/74 (85) 97 12/05/17 17:39 97.6 91 26 111/55 (73) 90 12/05/17 16:36 12/05/17 14:00 76 16 108/57 (74) 97 Nasal Cannula 2.00 Physical Exam CONSTITUTIONAL/GENERAL: This is morbidly obese elderly female patient, in no apparent distress. TUBES/LINES/DRAINS: SKIN: No jaundice, rashes, or lesions. Ecchymoses on upper extremities. No wounds seen anteriorly. Skin temperature appropriate. Not diaphoretic. HEAD: Atraumatic. Normocephalic. EYES: Pupils equal and round and reactive. Extraocular motions intact. No scleral icterus. No injection or drainage. Fundi not examined. ENT: Hearing grossly normal. Nose without bleeding or purulent drainage. Oral mucosae is very dry without visible erythema, exudates, masses, or lesions. NECK: Trachea midline. Supple, nontender. No palpable thyroid enlargement or nodularity. CARDIOVASCULAR: Regular rate and rhythm without murmurs, gallops, or rubs. No JVD. Peripheral pulses symmetric. RESPIRATORY/CHEST: Symmetric, unlabored respirations. Clear to auscultation. Breath sounds equal bilaterally. No wheezes, rales, or rhonchi. GASTROINTESTINAL: Abdomen soft, non-tender, nondistended. No hepato-splenomegaly , or palpable masses. No guarding. Bowel sounds present. GENITOURINARY: Without palpable bladder distension. Lentz catheter in place with coudy urine MUSCULOSKELETAL: Extremities without clubbing, cyanosis, + BLE edema. Cast on LLE No mottling or clubbing. LYMPHATICS: No palpable cervical or supraclavicular adenopathy. NEUROLOGICAL: Lethargic but aerousable Motor and sensory grossly within normal limits. Follows commands. Not verbal. Moves all extremities. PSYCHIATRIC: unable to assess Laboratory Laboratory Tests Test 12/06/17 08:10 Blood Urea Nitrogen 13 Creatinine 0.84 Random Glucose 119 Total Protein 5.9 Albumin 2.1 Calcium Level 8.6 Alkaline Phosphatase 46 Aspartate Amino Transf (AST/SGOT) 13 Alanine Aminotransferase (ALT/SGPT) 18 Total Bilirubin 0.6 Sodium Level 138 Potassium Level 4.1 Chloride Level 102 Carbon Dioxide Level 29.5 Anion Gap 7 Estimat Glomerular Filtration Rate 65 Date/Time Source Procedure Growth Status 12/05/17 03:20 Blood Peripheral Aerobic Blood Culture - Preliminary NO GROWTH IN 1 DAY Resulted 12/05/17 03:20 Blood Peripheral Anaerobic Blood Culture - Preliminary NO GROWTH IN 1 DAY Resulted 12/05/17 03:20 Urine Catheterized Urine Urine Culture Pending Received Result Diagram: 12/05/17 0315 12/06/17 0810 Imaging Last Impressions Head CT 12/05/17 0304 Signed Impressions: Service Date/Time: Tuesday, December 05, 2017 03:26 - CONCLUSION: 1. No acute intracranial hemorrhage. 2. Stable CT scan of the brain compared to the prior examination. 3. Old right MCA infarct. Piero Hartman MD Chest X-Ray 12/05/17 0304 Signed Impressions: Service Date/Time: Tuesday, December 05, 2017 03:16 - CONCLUSION: Stable mild infiltrate left lung base. No significant change compared to the prior exam. Piero Hartman MD Tibia/Fibula X-Ray 12/05/17 0000 Signed Impressions: Service Date/Time: Tuesday, December 05, 2017 05:43 - CONCLUSION: No change in the spiral fracture of the distal fibula. Piero Hartman MD Abdomen/Pelvis CT 12/05/17 0000 Signed Impressions: Service Date/Time: Tuesday, December 05, 2017 03:29 - CONCLUSION: 1. Moderate hiatal hernia the GE junction. 2. Scattered bibasilar infiltrates. 3. Scattered diverticulosis of the sigmoid colon without inflammatory changes. 4. No acute pathology. Piero Hartman MD Assessment and Plan Assessment and Plan UTI ? related to acute urinary retention Coag negative staph bacteremia , low grade , no indwelling vasc devices, g margarita will be a contaminan t cont CFTX will dc vacno if 2nd set remains negative @ 72 hrs fu urine clx and further adjust abx anticipate transition to po abx unl;ess JUSTINO Arielle Zhong MD Dec 06, 2017 13:49
[2017-12-06] MEDS ORDERED: Vancomycin Consult Pharmacy 1 EA OTHER SCH (14:00)
[2017-12-06] MEDS ORDERED: VANCOMYCIN 1,000 MG/NS 250 ML IV ONE ×2 (15:00)
[2017-12-06 16:18] VITALS: BP 98/54; PULSE 86; RESP 18; TEMP 98.2; O2SAT 90
[2017-12-06] MEDS ORDERED: VANCOMYCIN INJ 1,750 MG in SODIUM CHLORID 0.9% 500 ML INJ 500 ML IV SCH (17:00)
[2017-12-06] MEDS: ACETAMINOPHEN/CODEINE 300 MG/30 MG TAB PO PRN (22:31)
[2017-12-07 01:10] VITALS: BP 117/56; PULSE 78; RESP 18; TEMP 99
[2017-12-07] MEDS: SODIUM CHLOR 0.9% 1000 ML INJ 1,000 ML IV SCH (04:06)
[2017-12-07] MEDS: ENOXAPARIN SODIUM 30 MG/0.3 ML SYRINGE SQ SCH ×2 (04:07→16:55)
[2017-12-07 08:00] VITALS: BP 131/59; PULSE 79; RESP 16; TEMP 97.6; O2SAT 92
[2017-12-07] MEDS: cefTRIAXone INJ 1,000 MG in SODIUM CHLORIDE 0.9% INJ 100 ML IV SCH (08:00)
[2017-12-07] MEDS: PANTOPRAZOLE SOD 40 MG DELAYED RELEASE TAB PO SCH (09:00)
[2017-12-07] MEDS: levETIRAcetam 500 MG TAB PO SCH ×2 (09:00→20:54)
[2017-12-07] MEDS: DOCUSATE SODIUM 50 MG/SENNA 8.6 MG TAB PO SCH ×2 (09:00→20:54)
[2017-12-07] MEDS: ACETAMINOPHEN/CODEINE 300 MG/30 MG TAB PO PRN (09:43)
[2017-12-07 12:00] VITALS: BP 137/63; PULSE 80; RESP 18; TEMP 97.6; O2SAT 92
--- NOTE | 2017-12-07 12:47 | HHI.PR ---
Subjective Remarks No apparent distress, family at bedside. Does moan when you touch her. Objective Vital Signs Date Time Temp Pulse Resp B/P (MAP) Pulse Ox O2 Delivery O2 Flow Rate FiO2 12/07/17 12:00 97.6 80 18 137/63 (87) 92 12/07/17 11:24 20 12/07/17 08:00 97.6 79 16 131/59 (83) 92 12/07/17 01:10 99.0 78 18 117/56 (76) 12/06/17 16:18 98.2 86 18 98/54 (69) 90 I/O 12/06/17 12/06/17 12/06/17 12/07/17 12/07/17 12/07/17 07:00 15:00 23:00 07:00 15:00 23:00 Output Total 950 ml Balance -950 ml Output Urine Total 950 ml Result Diagram: 12/05/17 0315 12/06/17 0810 Other Results Microbiology Date/Time Source Procedure Growth Status 12/05/17 03:20 Blood Peripheral Aerobic Blood Culture - Preliminary Pleomorphic Gram Positive Rods Resulted 12/05/17 03:20 Anaerobic Blood Culture - Preliminary Pleomorphic Gram Positive Rods Resulted 12/05/17 03:15 Blood Peripheral Aerobic Blood Culture - Final Staph Sp Coagulase Negative Resulted 12/05/17 03:15 Anaerobic Blood Culture - Preliminary Staph Sp Coagulase Negative Resulted 12/05/17 03:20 Urine Catheterized Urine Urine Culture - Final Escherichia Coli Complete Objective Remarks Physical Exam GENERAL: This is a well-nourished, well-developed patient, non verbal, in no apparent distress, when left alone. SKIN: No rashes, ecchymoses or lesions. Cool and dry. HEAD: Atraumatic. Normocephalic. No temporal or scalp tenderness. EYES: Pupils equal round and reactive. Extraocular motions intact. No scleral icterus. No injection or drainage. ENT: Nose without bleeding, purulent drainage or septal hematoma. Throat without erythema, tonsillar hypertrophy or exudate. Uvula midline. Airway patent. NECK: Trachea midline. No JVD or lymphadenopathy. Supple, nontender, no meningeal signs. CARDIOVASCULAR: Difficult to auscultate due to constant vocalizations. RESPIRATORY Scattered: Rhonchi, diminished at base GASTROINTESTINAL: Abdomen soft, non-tender, nondistended. No hepato-splenomegaly , or palpable masses. No guarding. MUSCULOSKELETAL: Extremities without clubbing, cyanosis, or edema. Splint is present on the LLE. NEUROLOGICAL: Awake but not oriented or responding, moans when you attempt to touch her Medications and IVs Current Medications Medications (Trade) Dose Ordered Sig/Melo Route Start Time Stop Time Status Last Admin (NS Flush) 2 ml UNSCH PRN IV FLUSH 12/05/17 03:15 (Tylenol) 650 mg Q4H PRN PO 12/05/17 08:15 (Zofran Inj) 4 mg Q6H PRN IVP 12/05/17 08:15 (Narcan Inj) 0.4 mg UNSCH PRN IV PUSH 12/05/17 08:15 (Emili-Colace) 1 tab BID PO 12/05/17 09:00 12/07/17 09:00 (Milk Of Magnesia Liq) 30 ml Q12H PRN PO 12/05/17 08:15 (Senokot) 17.2 mg Q12H PRN PO 12/05/17 08:15 (Dulcolax Supp) 10 mg DAILY PRN RECTAL 12/05/17 08:15 (Lactulose Liq) 30 ml DAILY PRN PO 12/05/17 08:15 (Keppra) 500 mg Q12HR PO 12/05/17 09:00 12/07/17 09:00 (Lovenox Inj) 30 mg Q12H SQ 12/05/17 16:00 12/07/17 04:07 Sodium Chloride 1,000 ml @ 84 mls/hr [id number] IV 12/05/17 13:15 12/07/17 04:06 Ceftriaxone Sodium 1000 mg/ Sodium Chloride 100 ml @ 200 mls/hr Q24H IV 12/06/17 08:00 12/07/17 08:00 (Protonix) 40 mg DAILY PO 12/07/17 09:00 12/07/17 09:00 Pharmacy Profile Note 0 ml @ 0 mls/hr UNSCH OTHER 12/06/17 14:00 Vancomycin HCl 1750 mg/Sodium Chloride 517.5 ml @ 250 mls/hr Q24H IV 12/06/17 17:00 12/06/17 20:24 Miscellaneous Information SPECIFIC LAB TO BE [facility]... ONCE ONCE .XX 12/08/17 16:45 12/08/17 16:46 (Tylenol-Codeine #3) 1 tab Q6H PRN PO 12/06/17 22:15 12/07/17 09:43 Assessment and Plan Assessment and Plan AMS/ Encephalopathy- Swallow eval completed, Honey thick liquids Cont Keppra 500 mg bid, Level pending, Neuro following UTI-grew Ecoli, cont with Rocephin Positive blood cultures_ ID following, Vanco Rocephin A fib- Coumadin held r/t swallow, cover with Lovenox, rate controlled GI/ DVT prophylaxis- Lovenox PPI Nunu Haddad Dec 07, 2017 12:46
[2017-12-07 16:00] VITALS: BP 131/60; PULSE 88; RESP 18; TEMP 99; O2SAT 92
--- NOTE | 2017-12-07 16:53 | HHI.IDPN ---
Subjective Subjective Remarks doing better seems more alert afebrile E.coli in urine, pleomorphic GPR and coag neg staph in blood clx Antibiotics CFTX vancomycin Allergies: Coded Allergies: latex (Unverified Allergy, Intermediate, RASH, 12/05/17) Objective . Vital Signs Date Time Temp Pulse Resp B/P (MAP) Pulse Ox O2 Delivery O2 Flow Rate FiO2 12/07/17 16:00 99.0 88 18 131/60 (83) 92 12/07/17 12:00 97.6 80 18 137/63 (87) 92 12/07/17 11:24 20 12/07/17 08:00 97.6 79 16 131/59 (83) 92 12/07/17 01:10 99.0 78 18 117/56 (76) . Laboratory Tests Test 12/06/17 08:10 Blood Urea Nitrogen 13 MG/DL Creatinine 0.84 MG/DL Random Glucose 119 MG/DL Total Protein 5.9 GM/DL Albumin 2.1 GM/DL Calcium Level 8.6 MG/DL Alkaline Phosphatase 46 U/L Aspartate Amino Transf (AST/SGOT) 13 U/L Alanine Aminotransferase (ALT/SGPT) 18 U/L Total Bilirubin 0.6 MG/DL Sodium Level 138 MEQ/L Potassium Level 4.1 MEQ/L Chloride Level 102 MEQ/L Carbon Dioxide Level 29.5 MEQ/L Anion Gap 7 MEQ/L Estimat Glomerular Filtration Rate 65 ML/MIN Microbiology Date/Time Source Procedure Growth Status 12/05/17 03:20 Blood Peripheral Aerobic Blood Culture - Preliminary Pleomorphic Gram Positive Rods Resulted 12/05/17 03:20 Anaerobic Blood Culture - Preliminary Pleomorphic Gram Positive Rods Resulted 12/05/17 03:15 Blood Peripheral Aerobic Blood Culture - Final Staph Sp Coagulase Negative Resulted 12/05/17 03:15 Anaerobic Blood Culture - Preliminary Staph Sp Coagulase Negative Resulted 12/05/17 03:20 Urine Catheterized Urine Urine Culture - Final Escherichia Coli Complete Imaging Last Impressions Head CT 12/05/17303 Signed Impressions: Service Date/Time: Tuesday, December 05, 2017 03:26 - CONCLUSION: 1. No acute intracranial hemorrhage. 2. Stable CT scan of the brain compared to the prior examination. 3. Old right MCA infarct. Piero Hartman MD Chest X-Ray 12/05/17303 Signed Impressions: Service Date/Time: Tuesday, December 05, 2017 03:16 - CONCLUSION: Stable mild infiltrate left lung base. No significant change compared to the prior exam. Piero Hartman MD Tibia/Fibula X-Ray 12/05/17 0000 Signed Impressions: Service Date/Time: Tuesday, December 05, 2017 05:43 - CONCLUSION: No change in the spiral fracture of the distal fibula. Piero Hartman MD Abdomen/Pelvis CT 12/05/17 0000 Signed Impressions: Service Date/Time: Tuesday, December 05, 2017 03:29 - CONCLUSION: 1. Moderate hiatal hernia the GE junction. 2. Scattered bibasilar infiltrates. 3. Scattered diverticulosis of the sigmoid colon without inflammatory changes. 4. No acute pathology. Piero Hartman MD Physical Exam CONSTITUTIONAL/GENERAL: This is morbidly obese elderly female patient, in no apparent distress. TUBES/LINES/DRAINS: SKIN: No jaundice, rashes, or lesions. Ecchymoses on upper extremities. No wounds seen anteriorly. Skin temperature appropriate. Not diaphoretic. EYES: No scleral icterus. No injection or drainage. Fundi not examined. ENT: Hearing grossly normal. Nose without bleeding or purulent drainage. Oral mucosae is very dry without visible erythema, exudates, masses, or lesions. CARDIOVASCULAR: Regular rate and rhythm without murmurs, gallops, or rubs. No JVD. Peripheral pulses symmetric. RESPIRATORY/CHEST: Symmetric, unlabored respirations. Clear to auscultation. Breath sounds equal bilaterally. No wheezes, rales, or rhonchi. GASTROINTESTINAL: Abdomen soft, non-tender, nondistended. No hepato-splenomegaly , or palpable masses. No guarding. Bowel sounds present. GENITOURINARY: Without palpable bladder distension. MUSCULOSKELETAL: Extremities without clubbing, cyanosis, + BLE edema. Cast on LLE No mottling or clubbing. NEUROLOGICAL: Seems more alert Motor and sensory grossly within normal limits. Follows commands. Not verbal. Moves all extremities. PSYCHIATRIC: calm Assessment & Plan Remarks UTI ? related to acute urinary retention Mixed gram positive bacteremia , corynebacteria and coag neg staph cw contaminant cont CFTX dc vanco anticipate transition to po abx ( cipro or am/clav) Arielle Zhong MD Dec 07, 2017 16:53
[2017-12-07 20:02] VITALS: PULSE 76
[2017-12-07 20:31] VITALS: BP 119/57; PULSE 78; RESP 18; TEMP 98.5; O2SAT 91
[2017-12-08] VITALS (11 sets, daily range): BP systolic 112–137; BP diastolic 54–67; PULSE 68–93; RESP 18–20; TEMP 97.7–100.8; O2SAT 91–95
[2017-12-08] MEDS: SODIUM CHLOR 0.9% 1000 ML INJ 1,000 ML IV SCH ×2 (00:50→08:23)
[2017-12-08] MEDS: ENOXAPARIN SODIUM 30 MG/0.3 ML SYRINGE SQ SCH ×2 (04:53→16:23)
[2017-12-08] MEDS: cefTRIAXone INJ 1,000 MG in SODIUM CHLORIDE 0.9% INJ 100 ML IV SCH ×2 (08:00→08:23)
[2017-12-08] MEDS: PANTOPRAZOLE SOD 40 MG DELAYED RELEASE TAB PO SCH (08:23)
[2017-12-08] MEDS: levETIRAcetam 500 MG TAB PO SCH ×2 (08:24→20:50)
--- NOTE | 2017-12-08 09:01 | HHI.PR ---
Subjective Remarks No apparent distress, more alert today. Objective Vital Signs Date Time Temp Pulse Resp B/P (MAP) Pulse Ox O2 Delivery O2 Flow Rate FiO2 12/08/17 07:35 97.9 81 18 114/59 (77) 95 12/08/17 04:55 99.4 93 20 115/54 (74) 94 12/08/17 01:49 94 12/08/17 01:05 100.8 85 18 122/57 (78) 91 12/08/17 00:01 88 12/07/17 20:31 98.5 78 18 119/57 (77) 91 12/07/17 20:02 76 12/07/17 16:00 99.0 88 18 131/60 (83) 92 12/07/17 12:00 97.6 80 18 137/63 (87) 92 12/07/17 11:24 20 I/O 12/07/17 12/07/17 12/07/17 12/08/17 12/08/17 12/08/17 07:00 15:00 23:00 07:00 15:00 23:00 Intake Total 120 ml 500 ml Output Total 900 ml 725 ml Balance -780 ml -725 ml 500 ml Intake Oral 120 ml IV Total 500 ml Output Urine Total 900 ml 725 ml # Bowel Movements 0 Result Diagram: 12/05/17 0315 12/06/17 0810 Objective Remarks Physical Exam GENERAL: This is a well-nourished, well-developed patient, following command today, [place] reads lips. SKIN: No rashes, ecchymoses or lesions. Cool and dry. HEAD: Atraumatic. Normocephalic. No temporal or scalp tenderness. EYES: Pupils equal round and reactive. Extraocular motions intact. No scleral icterus. No injection or drainage. ENT: Nose without bleeding, purulent drainage or septal hematoma. Throat without erythema, tonsillar hypertrophy or exudate. Uvula midline. Airway patent. NECK: Trachea midline. No JVD or lymphadenopathy. Supple, nontender, no meningeal signs. CARDIOVASCULAR: Difficult to auscultate due to constant vocalizations. RESPIRATORY Scattered: Rhonchi, diminished at base GASTROINTESTINAL: Abdomen soft, non-tender, nondistended. No hepato-splenomegaly , or palpable masses. No guarding. MUSCULOSKELETAL: Extremities without clubbing, cyanosis, or edema. Splint is present on the LLE. NEUROLOGICAL: Awake/ alert, follow commands Medications and IVs Current Medications Medications (Trade) Dose Ordered Sig/Melo Route Start Time Stop Time Status Last Admin (NS Flush) 2 ml UNSCH PRN IV FLUSH 12/05/17 03:15 (Tylenol) 650 mg Q4H PRN PO 12/05/17 08:15 (Zofran Inj) 4 mg Q6H PRN IVP 12/05/17 08:15 (Narcan Inj) 0.4 mg UNSCH PRN IV PUSH 12/05/17 08:15 (Emili-Colace) 1 tab BID PO 12/05/17 09:00 12/07/17 20:54 (Milk Of Magnesia Liq) 30 ml Q12H PRN PO 12/05/17 08:15 (Senokot) 17.2 mg Q12H PRN PO 12/05/17 08:15 (Dulcolax Supp) 10 mg DAILY PRN RECTAL 12/05/17 08:15 (Lactulose Liq) 30 ml DAILY PRN PO 12/05/17 08:15 (Keppra) 500 mg Q12HR PO 12/05/17 09:00 12/08/17 08:24 (Lovenox Inj) 30 mg Q12H SQ 12/05/17 16:00 12/08/17 04:53 Sodium Chloride 1,000 ml @ 84 mls/hr [id number] IV 12/05/17 13:15 12/08/17 08:23 Ceftriaxone Sodium 1000 mg/ Sodium Chloride 100 ml @ 200 mls/hr Q24H IV 12/06/17 08:00 12/08/17 08:23 (Protonix) 40 mg DAILY PO 12/07/17 09:00 12/08/17 08:23 Miscellaneous Information SPECIFIC LAB TO BE [facility]... ONCE ONCE .XX 12/08/17 16:45 12/08/17 16:46 (Tylenol-Codeine #3) 1 tab Q6H PRN PO 12/06/17 22:15 12/07/17 09:43 Assessment and Plan Assessment and Plan AMS/ Encephalopathy- Swallow eval completed, Honey thick liquids, mentation better today more alert Cont Keppra 500 mg bid, , Neuro following UTI-grew Ecoli, cont with Rocephin, vanco Positive blood cultures_ ID following, Vanco Rocephin per ID noted transition to PO A fib- Coumadin held r/t swallow, cover with Lovenox, rate controlled Increased FBS- HGb A1C ordered GI/ DVT prophylaxis- Lovenox PPI Labs pending Nunu Haddad Dec 08, 2017 09:00
[2017-12-08] MEDS: DOCUSATE SODIUM 50 MG/SENNA 8.6 MG TAB PO SCH ×2 (09:04→20:50)
[2017-12-08 10:27] LABS: CREATININE 0.67 MG/DL (0.50-1.00)
[2017-12-08 11:59] LABS: BASOPHIL % 0.4 % (0.0-2.0); EOSINOPHIL # 0.1 TH/MM3 (0-0.4); EOSINOPHIL % 0.8 % (0.0-4.0); HEMATOCRIT 32.8 % (35.0-46.0); HEMOGLOBIN 10.9 GM/DL (11.6-15.3); LYMPH % 11.9 % (9.0-44.0); LYMPHOCYTE # 1.1 TH/MM3 (1.0-4.8); MEAN CELL VOLUME 90.2 FL (80.0-100.0); MEAN CORPUSCULAR HGB CONC 33.2 % (32.0-36.0); MONO % 11.9 % (0.0-8.0); MONOCYTE # 1.1 TH/MM3 (0-0.9); PLATELET COUNT 294 TH/MM3 (150-450); RED BLOOD COUNT 3.63 MIL/MM3 (4.00-5.30); RED CELL DISTRIBUTION WIDTH 14.1 % (11.6-17.2); WHITE BLOOD COUNT 9.4 TH/MM3 (4.0-11.0)
[2017-12-08 12:01] LABS: INTERNATIONAL NORMALIZED RATIO 1.3 RATIO; PROTHROMBIN TIME - PATIENT 13.5 SEC (9.8-11.6)
[2017-12-08] MEDS ORDERED: PHARMACY ORDERED LAB-VANCO TROUGH ONE (16:45)
[2017-12-08 17:44] LABS: BICARBONATE 30.2 MEQ/L (21.0-32.0); BLOOD UREA NITROGEN 8 MG/DL (7-18); CALCIUM 8.1 MG/DL (8.5-10.1); CHLORIDE 103 MEQ/L (98-107); CREATININE 0.72 MG/DL (0.50-1.00); GLOMERULAR FILTRATION RATE 78 ML/MIN (>89); GLUCOSE,RANDOM 100 MG/DL (74-106); SODIUM (NA) 138 MEQ/L (136-145)
[2017-12-08] MEDS: ACETAMINOPHEN/CODEINE 300 MG/30 MG TAB PO PRN (20:51)
[2017-12-08 22:25] LABS: HEMOGLOBIN A1C 6.5 % (4.3-6.0)
[2017-12-09] VITALS (12 sets, daily range): BP systolic 102–134; BP diastolic 55–68; PULSE 67–88; RESP 17–20; TEMP 97.3–99.3; O2SAT 92–95
[2017-12-09] MEDS: SODIUM CHLOR 0.9% 1000 ML INJ 1,000 ML IV SCH ×3 (00:40→23:34)
[2017-12-09] MEDS: ENOXAPARIN SODIUM 30 MG/0.3 ML SYRINGE SQ SCH ×2 (04:03→16:43)
--- NOTE | 2017-12-09 07:57 | HHI.PR ---
Subjective Remarks Awake and alert today, spouse at bedside. Objective Vital Signs Date Time Temp Pulse Resp B/P (MAP) Pulse Ox O2 Delivery O2 Flow Rate FiO2 12/09/17 03:54 98.1 79 18 102/56 (71) 94 12/09/17 03:38 67 12/09/17 00:28 97.3 75 18 124/57 (79) 94 12/09/17 00:00 74 12/08/17 21:57 20 12/08/17 20:43 98.0 77 18 137/67 (90) 94 12/08/17 20:15 83 12/08/17 16:30 68 12/08/17 15:25 97.7 93 20 112/57 (75) 95 12/08/17 11:43 98.1 86 18 125/62 (83) 95 12/08/17 08:40 74 I/O 12/08/17 12/08/17 12/08/17 12/09/17 12/09/17 12/09/17 07:00 15:00 23:00 07:00 15:00 23:00 Intake Total 600 ml Output Total 725 ml 950 ml Balance -725 ml 600 ml -950 ml IV Total 600 ml Output Urine Total 725 ml 950 ml Result Diagram: 12/08/17 1125 12/08/17 1707 Objective Remarks Physical Exam GENERAL: This is a well-nourished, well-developed patient, following command today, [place] reads lips. SKIN: No rashes, ecchymoses or lesions. Cool and dry. HEAD: Atraumatic. Normocephalic. No temporal or scalp tenderness. EYES: Pupils equal round and reactive. Extraocular motions intact. No scleral icterus. No injection or drainage. ENT: Nose without bleeding, purulent drainage or septal hematoma. Throat without erythema, tonsillar hypertrophy or exudate. Uvula midline. Airway patent. NECK: Trachea midline. No JVD or lymphadenopathy. Supple, nontender, no meningeal signs. CARDIOVASCULAR: Difficult to auscultate due to constant vocalizations. RESPIRATORY Scattered: Rhonchi, diminished at base GASTROINTESTINAL: Abdomen soft, non-tender, nondistended. No hepato-splenomegaly , or palpable masses. No guarding. MUSCULOSKELETAL: Extremities without clubbing, cyanosis, or edema. Splint is present on the LLE. NEUROLOGICAL: Awake/ alert, follow commands Medications and IVs Current Medications Medications (Trade) Dose Ordered Sig/Melo Route Start Time Stop Time Status Last Admin (NS Flush) 2 ml UNSCH PRN IV FLUSH 12/05/17 03:15 (Tylenol) 650 mg Q4H PRN PO 12/05/17 08:15 (Zofran Inj) 4 mg Q6H PRN IVP 12/05/17 08:15 (Narcan Inj) 0.4 mg UNSCH PRN IV PUSH 12/05/17 08:15 (Emili-Colace) 1 tab BID PO 12/05/17 09:00 12/08/17 20:50 (Milk Of Magnesia Liq) 30 ml Q12H PRN PO 12/05/17 08:15 (Senokot) 17.2 mg Q12H PRN PO 12/05/17 08:15 (Dulcolax Supp) 10 mg DAILY PRN RECTAL 12/05/17 08:15 (Lactulose Liq) 30 ml DAILY PRN PO 12/05/17 08:15 (Keppra) 500 mg Q12HR PO 12/05/17 09:00 12/08/17 20:50 (Lovenox Inj) 30 mg Q12H SQ 12/05/17 16:00 12/09/17 04:03 Sodium Chloride 1,000 ml @ 84 mls/hr [id number] IV 12/05/17 13:15 12/09/17 00:40 Ceftriaxone Sodium 1000 mg/ Sodium Chloride 100 ml @ 200 mls/hr Q24H IV 12/06/17 08:00 12/08/17 08:23 (Protonix) 40 mg DAILY PO 12/07/17 09:00 12/08/17 08:23 (Tylenol-Codeine #3) 1 tab Q6H PRN PO 12/06/17 22:15 12/08/17 20:51 Assessment and Plan Assessment and Plan AMS/ Encephalopathy- Swallow eval completed, Honey thick liquids, mentation better today more alert Cont Keppra 500 mg bid, , Neuro following UTI-grew Ecoli, afebrile cont with Rocephin, vanco Positive blood cultures_ ID following, Vanco Rocephin per ID noted transition to PO DM- HGB A1c 6.5- will monitor BS, with sc coverage. Start metformin at d/c A fib- Coumadin held r/t swallow, cover with Lovenox, rate controlled Restart Coumadin today, 2mg bridge with lovenox until INR >2 GI/ DVT prophylaxis- Lovenox PPI Labs pending D/C planning will need snf placement case management consult Nunu Haddad Dec 09, 2017 07:57
[2017-12-09] MEDS ORDERED: DEXTROSE 50% IN WATER 50 ML VIAL(D50) IV PUSH PRN (08:00)
[2017-12-09] MEDS ORDERED: GLUCAGON 1 MG/ML VIAL OTHER PRN (08:00)
[2017-12-09] MEDS: INSULIN NovoLIN REGULAR SUPPLEMENTAL SCALE SQ SCH ×4 (08:57→21:00)
[2017-12-09] MEDS: PANTOPRAZOLE SOD 40 MG DELAYED RELEASE TAB PO SCH (10:39)
[2017-12-09] MEDS: levETIRAcetam 500 MG TAB PO SCH ×2 (10:39→21:46)
[2017-12-09] MEDS: cefTRIAXone INJ 1,000 MG in SODIUM CHLORIDE 0.9% INJ 100 ML IV SCH (10:39)
[2017-12-09] MEDS: DOCUSATE SODIUM 50 MG/SENNA 8.6 MG TAB PO SCH ×2 (10:39→21:46)
[2017-12-09 11:15] LABS: INTERNATIONAL NORMALIZED RATIO 1.4 RATIO; PROTHROMBIN TIME - PATIENT 13.8 SEC (9.8-11.6)
[2017-12-09] MEDS: ACETAMINOPHEN/CODEINE 300 MG/30 MG TAB PO PRN ×2 (15:20→21:46)
[2017-12-09] MEDS: WARFARIN SOD 2 MG TAB PO SCH (16:43)
--- NOTE | 2017-12-09 17:53 | HHI.IDPN ---
Subjective Subjective Remarks seen earlier today - around 1200 afebrile somewhat lethargic , buit much more arousable E.coli in urine, pleomorphic GPR and coag neg staph in blood clx Antibiotics CFTX Allergies: Coded Allergies: latex (Unverified Allergy, Intermediate, RASH, 12/05/17) Objective . Vital Signs Date Time Temp Pulse Resp B/P (MAP) Pulse Ox O2 Delivery O2 Flow Rate FiO2 12/09/17 16:00 99.3 79 18 117/55 (75) 93 12/09/17 11:50 98.8 72 18 117/68 (84) 92 12/09/17 07:54 97.6 82 20 114/60 (78) 92 12/09/17 03:54 98.1 79 18 102/56 (71) 94 12/09/17 03:38 67 12/09/17 00:28 97.3 75 18 124/57 (79) 94 12/09/17 00:00 74 12/08/17 21:57 20 12/08/17 20:43 98.0 77 18 137/67 (90) 94 12/08/17 20:15 83 . Laboratory Tests Test 12/08/17 11:25 White Blood Count 9.4 TH/MM3 Red Blood Count 3.63 MIL/MM3 Hemoglobin 10.9 GM/DL Hematocrit 32.8 % Mean Corpuscular Volume 90.2 FL Mean Corpuscular Hemoglobin 30.0 PG Mean Corpuscular Hemoglobin Concent 33.2 % Red Cell Distribution Width 14.1 % Platelet Count 294 TH/MM3 Mean Platelet Volume 8.0 FL Neutrophils (%) (Auto) 75.0 % Lymphocytes (%) (Auto) 11.9 % Monocytes (%) (Auto) 11.9 % Eosinophils (%) (Auto) 0.8 % Basophils (%) (Auto) 0.4 % Neutrophils # (Auto) 7.0 TH/MM3 Lymphocytes # (Auto) 1.1 TH/MM3 Monocytes # (Auto) 1.1 TH/MM3 Eosinophils # (Auto) 0.1 TH/MM3 Basophils # (Auto) 0.0 TH/MM3 CBC Comment DIFF FINAL Differential Comment Laboratory Tests Test 12/08/17 09:23 12/08/17 17:07 12/09/17 17:00 Creatinine 0.67 MG/DL 0.72 MG/DL Estimat Glomerular Filtration Rate 85 ML/MIN 78 ML/MIN Blood Urea Nitrogen 8 MG/DL Random Glucose 100 MG/DL Calcium Level 8.1 MG/DL Sodium Level 138 MEQ/L Potassium Level 4.3 MEQ/L Chloride Level 103 MEQ/L Carbon Dioxide Level 30.2 MEQ/L Anion Gap 5 MEQ/L Hemoglobin A1c 6.5 % Ammonia 26 MCMOL/L Imaging Last Impressions Head CT 12/05/17 0304 Signed Impressions: Service Date/Time: Tuesday, December 05, 2017 03:26 - CONCLUSION: 1. No acute intracranial hemorrhage. 2. Stable CT scan of the brain compared to the prior examination. 3. Old right MCA infarct. Piero Hartman MD Chest X-Ray 12/05/17 0304 Signed Impressions: Service Date/Time: Tuesday, December 05, 2017 03:16 - CONCLUSION: Stable mild infiltrate left lung base. No significant change compared to the prior exam. Piero Hartman MD Tibia/Fibula X-Ray 12/05/17 0000 Signed Impressions: Service Date/Time: Tuesday, December 05, 2017 05:43 - CONCLUSION: No change in the spiral fracture of the distal fibula. Piero Hartman MD Abdomen/Pelvis CT 12/05/17 0000 Signed Impressions: Service Date/Time: Tuesday, December 05, 2017 03:29 - CONCLUSION: 1. Moderate hiatal hernia the GE junction. 2. Scattered bibasilar infiltrates. 3. Scattered diverticulosis of the sigmoid colon without inflammatory changes. 4. No acute pathology. Piero Hartman MD Physical Exam CONSTITUTIONAL/GENERAL: This is morbidly obese elderly female patient, in no apparent distress. TUBES/LINES/DRAINS: SKIN: No jaundice, rashes, or lesions. Ecchymoses on upper extremities. No wounds seen anteriorly. Skin temperature appropriate. Not diaphoretic HEENT: mucosae seem more moist . CARDIOVASCULAR: Regular rate and rhythm without murmurs, gallops, or rubs. No JVD. Peripheral pulses symmetric. RESPIRATORY/CHEST: Symmetric, unlabored respirations. Clear to auscultation. Breath sounds equal bilaterally. No wheezes, rales, or rhonchi. GASTROINTESTINAL: Abdomen soft, non-tender, nondistended. No hepato-splenomegaly , or palpable masses. No guarding. Bowel sounds present. GENITOURINARY: Without palpable bladder distension. MUSCULOSKELETAL: Extremities without clubbing, cyanosis, + BLE edema. Cast on LLE No mottling or clubbing. NEUROLOGICAL: lethargic, easily arousable Motor and sensory grossly within normal limits. Follows commands. Not verbal. Moves all extremities. PSYCHIATRIC: calm Assessment & Plan Remarks UTI ? related to acute urinary retention Mixed gram positive bacteremia , corynebacteria and coag neg staph cw contaminant dc CFTX Cipro Ok to dc from [place] Arielle Miles MD Dec 09, 2017 17:53
[2017-12-09 21:24] LABS: BACTERIA, URINE RARE /hpf; BILIRUBIN, URINE NEG (NEG); BLOOD, URINE TRACE (NEG); GLUCOSE,URINE NEG (NEG); HYALINE CAST, URINE 1 /lpf (RARE); KETONE, URINE NEG (NEG); MUCUS URINE FEW /lpf (OCC); NITRITE,URINE NEG (NEG); URINE COLOR YELLOW (YELLW/STRAW); URINE LEUKOCYTE ESTERASE NEG (NEG)
[2017-12-09] MEDS: CIPROFLOXACIN 500 MG TAB PO SCH (21:45)
[2017-12-10] VITALS (12 sets, daily range): BP systolic 99–126; BP diastolic 55–70; PULSE 75–86; RESP 17–18; TEMP 97.5–101; O2SAT 92–96
[2017-12-10] MEDS: ENOXAPARIN SODIUM 30 MG/0.3 ML SYRINGE SQ SCH ×2 (03:56→18:23)
[2017-12-10 06:13] LABS: AUTOMATED NEUTROPHIL # 6.4 TH/MM3 (1.8-7.7); BASOPHIL # 0.1 TH/MM3 (0-0.2); BASOPHIL % 0.6 % (0.0-2.0); EOSINOPHIL % 0.4 % (0.0-4.0); HEMATOCRIT 32.4 % (35.0-46.0); HEMOGLOBIN 10.9 GM/DL (11.6-15.3); LYMPH % 11.7 % (9.0-44.0); MEAN CELL VOLUME 91.2 FL (80.0-100.0); MEAN CORPUSCULAR HEMOGLOBIN 30.8 PG (27.0-34.0); MEAN CORPUSCULAR HGB CONC 33.8 % (32.0-36.0); MEAN PLATELET VOLUME 7.9 FL (7.0-11.0); MONO % 14.5 % (0.0-8.0); MONOCYTE # 1.3 TH/MM3 (0-0.9); NEUT % 72.8 % (16.0-70.0); PLATELET COUNT 260 TH/MM3 (150-450); RED BLOOD COUNT 3.55 MIL/MM3 (4.00-5.30); WHITE BLOOD COUNT 8.8 TH/MM3 (4.0-11.0)
[2017-12-10 06:38] LABS: BICARBONATE 29.2 MEQ/L (21.0-32.0); CALCIUM 8.4 MG/DL (8.5-10.1); CREATININE 0.66 MG/DL (0.50-1.00)
[2017-12-10] MEDS ORDERED: COUM2TAB PO (07:56)
[2017-12-10] MEDS ORDERED: LEVE500 PO (07:56)
[2017-12-10] MEDS ORDERED: CIPR-9 PO (07:58)
[2017-12-10] MEDS ORDERED: ACET1TAB94 PO (08:00)
--- NOTE | 2017-12-10 08:10 | HHI.DS ---
Discharge Summary Admission Date Dec 06, 2017 at 12:49 Admitting Diagnosis AMS, UTI, poss cva CBC/BMP: 12/10/17 0443 12/10/17 0443 Significant Findings Laboratory Tests Test 12/08/17 09:23 12/08/17 11:25 12/08/17 17:07 12/09/17 10:40 Estimat Glomerular Filtration Rate 85 ML/MIN (>89) 78 ML/MIN (>89) Red Blood Count 3.63 MIL/MM3 (4.00-5.30) Hemoglobin 10.9 GM/DL (11.6-15.3) Hematocrit 32.8 % (35.0-46.0) Neutrophils (%) (Auto) 75.0 % (16.0-70.0) Monocytes (%) (Auto) 11.9 % (0.0-8.0) Monocytes # (Auto) 1.1 TH/MM3 (0-0.9) Prothrombin Time 13.5 SEC (9.8-11.6) 13.8 SEC (9.8-11.6) Calcium Level 8.1 MG/DL (8.5-10.1) Hemoglobin A1c 6.5 % (4.3-6.0) Test 12/09/17 17:00 12/09/17 19:40 12/10/17 04:43 Urine Occult Blood TRACE (NEG) Urine RBC 4 /hpf (0-3) Urine Bacteria RARE /hpf (NONE) Urine Mucus FEW /lpf (OCC) Red Blood Count 3.55 MIL/MM3 (4.00-5.30) Hemoglobin 10.9 GM/DL (11.6-15.3) Hematocrit 32.4 % (35.0-46.0) Neutrophils (%) (Auto) 72.8 % (16.0-70.0) Monocytes (%) (Auto) 14.5 % (0.0-8.0) Monocytes # (Auto) 1.3 TH/MM3 (0-0.9) Blood Urea Nitrogen 6 MG/DL (7-18) Random Glucose 114 MG/DL (74-106) Calcium Level 8.4 MG/DL (8.5-10.1) Estimat Glomerular Filtration Rate 86 ML/MIN (>89) Imaging Laboratory Tests Test 12/08/17 09:23 12/08/17 11:25 12/08/17 17:07 12/09/17 10:40 Estimat Glomerular Filtration Rate 85 ML/MIN (>89) 78 ML/MIN (>89) Red Blood Count 3.63 MIL/MM3 (4.00-5.30) Hemoglobin 10.9 GM/DL (11.6-15.3) Hematocrit 32.8 % (35.0-46.0) Neutrophils (%) (Auto) 75.0 % (16.0-70.0) Monocytes (%) (Auto) 11.9 % (0.0-8.0) Monocytes # (Auto) 1.1 TH/MM3 (0-0.9) Prothrombin Time 13.5 SEC (9.8-11.6) 13.8 SEC (9.8-11.6) Calcium Level 8.1 MG/DL (8.5-10.1) Hemoglobin A1c 6.5 % (4.3-6.0) Test 12/09/17 17:00 12/09/17 19:40 12/10/17 04:43 Urine Occult Blood TRACE (NEG) Urine RBC 4 /hpf (0-3) Urine Bacteria RARE /hpf (NONE) Urine Mucus FEW /lpf (OCC) Red Blood Count 3.55 MIL/MM3 (4.00-5.30) Hemoglobin 10.9 GM/DL (11.6-15.3) Hematocrit 32.4 % (35.0-46.0) Neutrophils (%) (Auto) 72.8 % (16.0-70.0) Monocytes (%) (Auto) 14.5 % (0.0-8.0) Monocytes # (Auto) 1.3 TH/MM3 (0-0.9) Blood Urea Nitrogen 6 MG/DL (7-18) Random Glucose 114 MG/DL (74-106) Calcium Level 8.4 MG/DL (8.5-10.1) Estimat Glomerular Filtration Rate 86 ML/MIN (>89) PE at Discharge Physical Exam GENERAL: This is a well-nourished, well-developed patient, following command today, CHITIMACHA reads lips. SKIN: No rashes, ecchymoses or lesions. Cool and dry. HEAD: Atraumatic. Normocephalic. No temporal or scalp tenderness. EYES: Pupils equal round and reactive. Extraocular motions intact. No scleral icterus. No injection or drainage. ENT: Nose without bleeding, purulent drainage or septal hematoma. Throat without erythema, tonsillar hypertrophy or exudate. Uvula midline. Airway patent. NECK: Trachea midline. No JVD or lymphadenopathy. Supple, nontender, no meningeal signs. CARDIOVASCULAR: Difficult to auscultate due to constant vocalizations. RESPIRATORY Scattered: Rhonchi, diminished at base GASTROINTESTINAL: Abdomen soft, non-tender, nondistended. No hepato-splenomegaly , or palpable masses. No guarding. MUSCULOSKELETAL: Extremities without clubbing, cyanosis, or edema. Splint is present on the LLE. NEUROLOGICAL: Awake/ alert, follow commands Hospital Course Discharged o Wednesday12/04/17 to [facility], presented back to ER on for AMS. Found to have a complicated UTI, with positive BS. ID consulted, patient received Rocephin, Vanco transitioned to Cipro. She was seen by speech therapy, for swallowing difficulty, placed on pureed, honey liq. Coumadin stopped and placed on Lovenox cause of swallowing difficulties, restarted on 12/09/17, will be bridged with Lovenox. Pt Condition on Discharge: Stable Discharge Disposition: Discharge to SNF Discharge Instructions DIET: Follow Instructions for: As Tolerated, No Restrictions Speech Therapy-Diet Recommenda: Pureed Additional Diet Instructions: Pureed/ Honey thick Activities you can perform: Non Weight Bearing Additional Activity Instructio: KORIN HARRIS New Medications: Acetaminophen-Codeine (Acetaminophen-Codeine) 300-30 mg Tab 1 TAB PO Q6H PRN for PAIN 6-10 for 7 Days, #28 TAB prn needed for pain Ciprofloxacin (Cipro) 500 Mg Tab 500 MG PO Q12HR for Infection for 10 Days, #20 TAB take as directed Levetiracetam (Keppra) 500 Mg Tab 500 MG PO Q12HR for Seizure Control for 30 Days, #60 TAB take as directed Warfarin (Coumadin) 2 Mg Tab 2 MG PO DAILY@16 for Blood Clot Prevention for 10 Days, #10 TAB 2 mg daily Continued Medications: Albuterol 8.5 GM Inh (Proair Hfa 8.5 GM Inh) 90 Mcg/Act Aer 2 PUFF INH Q4H PRN for SHORTNESS OF BREATH, #1 INHALER 0 Refills 108 mcg/actuation Buspirone (Buspirone) Unknown Strength Tab Unknown Dose PO BID for Anxiety, TAB 0 Refills Pantoprazole (Protonix) 40 Mg Tab 40 MG PO DAILY for Reflux, #30 TAB 0 Refills Risperidone (Risperdal) 0.5 Mg Tab 0.5 MG PO HS, #30 TAB 0 Refills Rivastigmine (Rivastigmine) 1.5 Mg Cap 1.5 MG PO BID for Dementia, #60 CAP 0 Refills Sertraline (Sertraline) 100 Mg Tab 100 MG PO DAILY, #30 TAB 0 Refills Discontinued Medications: Warfarin (Warfarin) 3 Mg Tab 3 MG PO SuTuWeFrSa for Blood Clot Prevention, #30 TAB 0 Refills Warfarin (Warfarin) 4 Mg Tab 4.5 MG PO MoTh for Blood Clot Prevention, #30 TAB 0 Refills Additional Information PT/ INR on Wednesday, stop Lovenox when INR >2.0 Follow up with neuro Dr Mitchell for seizures in- 2 weeks Follow up with orthopedics Dr Castillo fx left fibula- in 2 weeks Nunu Haddad Dec 10, 2017 08:10
[2017-12-10] MEDS: INSULIN NovoLIN REGULAR SUPPLEMENTAL SCALE SQ SCH ×4 (09:55→21:00)
[2017-12-10] MEDS: PANTOPRAZOLE SOD 40 MG DELAYED RELEASE TAB PO SCH (10:07)
[2017-12-10] MEDS: levETIRAcetam 500 MG TAB PO SCH ×2 (10:07→22:56)
[2017-12-10] MEDS: CIPROFLOXACIN 500 MG TAB PO SCH ×2 (10:07→22:56)
[2017-12-10] MEDS: DOCUSATE SODIUM 50 MG/SENNA 8.6 MG TAB PO SCH ×2 (10:07→22:57)
[2017-12-10] MEDS: cefTRIAXone INJ 1,000 MG in SODIUM CHLORIDE 0.9% INJ 100 ML IV SCH (10:08)
[2017-12-10 13:11] LABS: INTERNATIONAL NORMALIZED RATIO 1.6 RATIO; PROTHROMBIN TIME - PATIENT 16.4 SEC (9.8-11.6)
--- NOTE | 2017-12-10 15:52 | RADRPT ---
EXAM DATE/TIME: 12/10/2017 15:14 [place] COMPARISON: CHEST SINGLE AP, December 05, 2017, 3:16. TIBIA/FIBULA LEFT (AP/LAT), December 05, 2017, 5:43. INDICATIONS : Short of breath. MEDICAL HISTORY : Arthritis. Hypercholesterolemia. Hypertension. Gastroesophageal refluxdisease. CVA SURGICAL HISTORY : Mastoidectomy. ENCOUNTER: Subsequent ACUITY: 1 week PAIN SCORE: 0/10 LOCATION: Bilateral chest FINDINGS: The heart is mildly enlarged. 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 A graft there are chronic interstitial changes throughout the lungs. There are atelectatic changes at the left mansi g base. These are stable compared to the previous dated 12/05/17. There are degenerative changes withi n the shoulders bilaterally. CONCLUSION: 1. Atelectatic changes at the left lung base. 2. Stable compared to previous exam. Jakob Jung MD on December 10, 2017 at 15:30 Board Certified Radiologist. This report was verified electronically.
[2017-12-10] MEDS: SODIUM CHLOR 0.9% 1000 ML INJ 1,000 ML IV SCH (15:55)
[2017-12-10] MEDS: WARFARIN SOD 2 MG TAB PO SCH (18:23)
--- NOTE | 2017-12-10 18:25 | HHI.IDPN ---
Subjective Subjective Remarks pt had a fever 101.0 she is quite lethargic Can not elucidate any c/o On O2 Antibiotics CFTX cipro Allergies: Coded Allergies: latex (Unverified Allergy, Intermediate, RASH, 12/05/17) Objective . Vital Signs Date Time Temp Pulse Resp B/P (MAP) Pulse Ox O2 Delivery O2 Flow Rate FiO2 12/10/17 17:33 97.9 75 18 126/55 (78) 95 12/10/17 14:21 98.2 12/10/17 12:59 100.0 12/10/17 12:33 101.0 82 18 123/57 (79) 94 12/10/17 08:28 97.5 81 18 99/57 (71) 96 12/10/17 05:31 98.4 86 18 125/70 (88) 92 12/10/17 03:59 79 12/10/17 00:53 98.0 79 17 114/69 (84) 94 12/10/17 00:00 78 12/09/17 23:22 18 12/09/17 20:00 78 12/09/17 19:52 98.6 76 17 134/59 (84) 95 . Laboratory Tests Test 12/10/17 04:43 White Blood Count 8.8 TH/MM3 Red Blood Count 3.55 MIL/MM3 Hemoglobin 10.9 GM/DL Hematocrit 32.4 % Mean Corpuscular Volume 91.2 FL Mean Corpuscular Hemoglobin 30.8 PG Mean Corpuscular Hemoglobin Concent 33.8 % Red Cell Distribution Width 14.0 % Platelet Count 260 TH/MM3 Mean Platelet Volume 7.9 FL Neutrophils (%) (Auto) 72.8 % Lymphocytes (%) (Auto) 11.7 % Monocytes (%) (Auto) 14.5 % Eosinophils (%) (Auto) 0.4 % Basophils (%) (Auto) 0.6 % Neutrophils # (Auto) 6.4 TH/MM3 Lymphocytes # (Auto) 1.0 TH/MM3 Monocytes # (Auto) 1.3 TH/MM3 Eosinophils # (Auto) 0.0 TH/MM3 Basophils # (Auto) 0.1 TH/MM3 CBC Comment DIFF FINAL Differential Comment Laboratory Tests Test 12/09/17 17:00 12/10/17 04:43 Ammonia 26 MCMOL/L Blood Urea Nitrogen 6 MG/DL Creatinine 0.66 MG/DL Random Glucose 114 MG/DL Calcium Level 8.4 MG/DL Sodium Level 137 MEQ/L Potassium Level 3.8 MEQ/L Chloride Level 102 MEQ/L Carbon Dioxide Level 29.2 MEQ/L Anion Gap 6 MEQ/L Estimat Glomerular Filtration Rate 86 ML/MIN Microbiology Date/Time Source Procedure Growth Status 12/10/17 16:06 Blood Peripheral Aerobic Blood Culture Pending Received 12/10/17 16:06 Blood Peripheral Anaerobic Blood Culture Pending Received Imaging Last Impressions Chest X-Ray 12/10/17 0000 Signed Impressions: Service Date/Time: Sunday, December 10, 2017 15:14 - CONCLUSION: 1. Atelectatic changes at the left lung base. 2. Stable compared to previous exam. Jakob Jung MD Head CT 12/05/17 0304 Signed Impressions: Service Date/Time: Tuesday, December 05, 2017 03:26 - CONCLUSION: 1. No acute intracranial hemorrhage. 2. Stable CT scan of the brain compared to the prior examination. 3. Old right MCA infarct. Piero Hartman MD Tibia/Fibula X-Ray 12/05/17 0000 Signed Impressions: Service Date/Time: Tuesday, December 05, 2017 05:43 - CONCLUSION: No change in the spiral fracture of the distal fibula. Piero Hartman MD Abdomen/Pelvis CT 12/05/17 0000 Signed Impressions: Service Date/Time: Tuesday, December 05, 2017 03:29 - CONCLUSION: 1. Moderate hiatal hernia the GE junction. 2. Scattered bibasilar infiltrates. 3. Scattered diverticulosis of the sigmoid colon without inflammatory changes. 4. No acute pathology. Piero Hartman MD Physical Exam CONSTITUTIONAL/GENERAL: This is morbidly obese elderly female patient, in no apparent distress. TUBES/LINES/DRAINS: SKIN: No jaundice, rashes, or lesions. Ecchymoses on upper extremities. No wounds seen anteriorly. Skin temperature appropriate. Not diaphoretic HEENT: mucosae seem more moist . CARDIOVASCULAR: Regular rate and rhythm without murmurs, gallops, or rubs. No JVD. Peripheral pulses symmetric. RESPIRATORY/CHEST: Symmetric, unlabored respirations. Clear to auscultation. Breath sounds equal bilaterally. No wheezes, rales, or rhonchi. GASTROINTESTINAL: Abdomen soft, + distended, tender - pt is moaning to palpation. No hepato-splenomegaly, or palpable masses. No guarding. Bowel sounds present. GENITOURINARY: Without palpable bladder distension. MUSCULOSKELETAL: Extremities without clubbing, cyanosis, + BLE edema. Cast on LLE No mottling or clubbing. NEUROLOGICAL: lethargic, not easily arousable Not follows commands. Not verbal. Moves all extremities. PSYCHIATRIC: unable top assess Assessment & Plan Remarks UTI ? related to acute urinary retention - UA cw resolved infx Mixed gram positive bacteremia , corynebacteria and coag neg staph cw contaminant New fever re[peat 2 sets of blood clx lactic acid consider CT abd/pel CBC dw Arielle Dutta MD Dec 10, 2017 18:25
[2017-12-11] VITALS: BP 124/60; PULSE 81; RESP 17; TEMP 98.1; O2SAT 95
[2017-12-11] MEDS: SODIUM CHLOR 0.9% 1000 ML INJ 1,000 ML IV SCH (00:20)
[2017-12-11 04:00] VITALS: BP 105/48; PULSE 81; RESP 18; TEMP 98.1; O2SAT 92
[2017-12-11] MEDS: ENOXAPARIN SODIUM 30 MG/0.3 ML SYRINGE SQ SCH (06:27)
[2017-12-11 08:00] VITALS: BP 122/60; PULSE 80; RESP 20; TEMP 98.9; O2SAT 95
[2017-12-11] MEDS: CIPROFLOXACIN 500 MG TAB PO SCH (08:22)
[2017-12-11] MEDS: PANTOPRAZOLE SOD 40 MG DELAYED RELEASE TAB PO SCH (08:22)
[2017-12-11] MEDS: INSULIN NovoLIN REGULAR SUPPLEMENTAL SCALE SQ SCH ×2 (08:22→12:00)
[2017-12-11] MEDS: levETIRAcetam 500 MG TAB PO SCH (08:23)
[2017-12-11] MEDS: DOCUSATE SODIUM 50 MG/SENNA 8.6 MG TAB PO SCH (08:23)
[2017-12-11 09:11] LABS: ALBUMIN 1.7 GM/DL (3.4-5.0); AST (GOT) 11 U/L (15-37); BICARBONATE 28.4 MEQ/L (21.0-32.0); BLOOD UREA NITROGEN 5 MG/DL (7-18); CALCIUM 8.8 MG/DL (8.5-10.1); CHLORIDE 101 MEQ/L (98-107); CREATININE 0.65 MG/DL (0.50-1.00); GLOMERULAR FILTRATION RATE 88 ML/MIN (>89); GLUCOSE,RANDOM 132 MG/DL (74-106); SODIUM (NA) 136 MEQ/L (136-145)
[2017-12-11 09:13] LABS: ALT (GPT) 11 U/L (10-53)
[2017-12-11 09:15] LABS: ALKALINE PHOSPHATASE 46 U/L (45-117); TOTAL BILIRUBIN ADULT 0.4 MG/DL (0.2-1.0)
[2017-12-11 09:45] LABS: WESTERGREN SEDIMENTATION RATE GREATER THAN 140 mm/hr (0-30)
[2017-12-11 09:50] LABS: AUTOMATED NEUTROPHIL # 5.4 TH/MM3 (1.8-7.7); BASOPHIL % 0.5 % (0.0-2.0); EOSINOPHIL % 0.2 % (0.0-4.0); HEMATOCRIT 28.2 % (35.0-46.0); HEMOGLOBIN 9.7 GM/DL (11.6-15.3); LYMPH % 13.9 % (9.0-44.0); LYMPHOCYTE # 1.1 TH/MM3 (1.0-4.8); MEAN CELL VOLUME 88.9 FL (80.0-100.0); MEAN CORPUSCULAR HEMOGLOBIN 30.7 PG (27.0-34.0); MEAN CORPUSCULAR HGB CONC 34.5 % (32.0-36.0); MEAN PLATELET VOLUME 8.5 FL (7.0-11.0); MONO % 16.6 % (0.0-8.0); MONOCYTE # 1.3 TH/MM3 (0-0.9); NEUT % 68.8 % (16.0-70.0); PLATELET COUNT 270 TH/MM3 (150-450); RED BLOOD COUNT 3.17 MIL/MM3 (4.00-5.30); RED CELL DISTRIBUTION WIDTH 14.1 % (11.6-17.2); WHITE BLOOD COUNT 7.8 TH/MM3 (4.0-11.0)
--- NOTE | 2017-12-11 11:36 | HHI.DS ---
Discharge Summary Admission Date Dec 06, 2017 at 12:49 Discharge Date: Dec 11, 2017 Admitting Diagnosis AMS, UTI, poss cva Brief History Patient presented with AMS and UTI. Neuro and Infectious Disease followed and evaluation completed. CBC/BMP: 12/11/17 0720 12/11/17 0720 Significant Findings Laboratory Tests Test 12/08/17 17:07 12/09/17 10:40 12/09/17 17:00 12/09/17 19:40 Calcium Level 8.1 MG/DL (8.5-10.1) Estimat Glomerular Filtration Rate 78 ML/MIN (>89) Hemoglobin A1c 6.5 % (4.3-6.0) Prothrombin Time 13.8 SEC (9.8-11.6) Urine Occult Blood TRACE (NEG) Urine RBC 4 /hpf (0-3) Urine Bacteria RARE /hpf (NONE) Urine Mucus FEW /lpf (OCC) Test 12/10/17 04:43 12/10/17 12:09 12/10/17 21:42 12/11/17 07:20 Red Blood Count 3.55 MIL/MM3 (4.00-5.30) 3.17 MIL/MM3 (4.00-5.30) Hemoglobin 10.9 GM/DL (11.6-15.3) 9.7 GM/DL (11.6-15.3) Hematocrit 32.4 % (35.0-46.0) 28.2 % (35.0-46.0) Neutrophils (%) (Auto) 72.8 % (16.0-70.0) Monocytes (%) (Auto) 14.5 % (0.0-8.0) 16.6 % (0.0-8.0) Monocytes # (Auto) 1.3 TH/MM3 (0-0.9) 1.3 TH/MM3 (0-0.9) Blood Urea Nitrogen 6 MG/DL (7-18) 5 MG/DL (7-18) Random Glucose 114 MG/DL (74-106) 132 MG/DL (74-106) Calcium Level 8.4 MG/DL (8.5-10.1) Estimat Glomerular Filtration Rate 86 ML/MIN (>89) 88 ML/MIN (>89) Prothrombin Time 16.4 SEC (9.8-11.6) Erythrocyte Sedimentation Rate GREATER THAN 140 mm/hr Total Protein 6.0 GM/DL (6.4-8.2) Albumin 1.7 GM/DL (3.4-5.0) Aspartate Amino Transf (AST/SGOT) 11 U/L (15-37) Imaging Last Impressions Chest X-Ray 12/10/17 0000 Signed Impressions: Service Date/Time: Sunday, December 10, 2017 15:14 - CONCLUSION: 1. Atelectatic changes at the left lung base. 2. Stable compared to previous exam. Jakob Jung MD Head CT 12/05/17 0304 Signed Impressions: Service Date/Time: Tuesday, December 05, 2017 03:26 - CONCLUSION: 1. No acute intracranial hemorrhage. 2. Stable CT scan of the brain compared to the prior examination. 3. Old right MCA infarct. Piero Hartman MD Tibia/Fibula X-Ray 12/05/17 0000 Signed Impressions: Service Date/Time: Tuesday, December 05, 2017 05:43 - CONCLUSION: No change in the spiral fracture of the distal fibula. Piero Hartman MD Abdomen/Pelvis CT 12/05/17 0000 Signed Impressions: Service Date/Time: Tuesday, December 05, 2017 03:29 - CONCLUSION: 1. Moderate hiatal hernia the GE junction. 2. Scattered bibasilar infiltrates. 3. Scattered diverticulosis of the sigmoid colon without inflammatory changes. 4. No acute pathology. Piero Hartman MD PE at Discharge HEENT : AT/NC; Resp : without adventitious sounds; CV : No murmur rub or gallop noted; Abd - Soft and nontender with active BS; MS - LLE in cast and NV intact distally; Neuro - Nonverbal and awake attends to speech but doesn't respond Hospital Course Treated for UTI and ID followed. Last Cx determined to be contaminant and no longer febrile. Neuro eval completed and patient cont to have AMS though no longer verbalizes. Pt Condition on Discharge: Fair Discharge Disposition: Discharge to SNF Discharge Instructions DIET: Follow Instructions for: As Tolerated, No Restrictions Speech Therapy-Diet Recommenda: Pureed Additional Diet Instructions: Pureed/ Honey thick Activities you can perform: Non Weight Bearing Activities to avoid: Weight Bearing Additional Activity Instructio: NWB, LLE New Medications: Acetaminophen-Codeine (Acetaminophen-Codeine) 300-30 mg Tab 1 TAB PO Q6H PRN for PAIN 6-10 for 7 Days, #28 TAB prn needed for pain Ciprofloxacin (Cipro) 500 Mg Tab 500 MG PO Q12HR for Infection for 10 Days, #20 TAB take as directed Levetiracetam (Keppra) 500 Mg Tab 500 MG PO Q12HR for Seizure Control for 30 Days, #60 TAB take as directed Warfarin (Coumadin) 2 Mg Tab 2 MG PO DAILY@16 for Blood Clot Prevention for 10 Days, #10 TAB 2 mg daily Continued Medications: Albuterol 8.5 GM Inh (Proair Hfa 8.5 GM Inh) 90 Mcg/Act Aer 2 PUFF INH Q4H PRN for SHORTNESS OF BREATH, #1 INHALER 0 Refills 108 mcg/actuation Buspirone (Buspirone) Unknown Strength Tab Unknown Dose PO BID for Anxiety, TAB 0 Refills Pantoprazole (Protonix) 40 Mg Tab 40 MG PO DAILY for Reflux, #30 TAB 0 Refills Risperidone (Risperdal) 0.5 Mg Tab 0.5 MG PO HS, #30 TAB 0 Refills Rivastigmine (Rivastigmine) 1.5 Mg Cap 1.5 MG PO BID for Dementia, #60 CAP 0 Refills Sertraline (Sertraline) 100 Mg Tab 100 MG PO DAILY, #30 TAB 0 Refills Discontinued Medications: Warfarin (Warfarin) 3 Mg Tab 3 MG PO SuTuWeFrSa for Blood Clot Prevention, #30 TAB 0 Refills Warfarin (Warfarin) 4 Mg Tab 4.5 MG PO MoTh for Blood Clot Prevention, #30 TAB 0 Refills Fabrice William Dec 11, 2017 11:36
[2017-12-11 12:00] VITALS: BP 95/54; PULSE 89; RESP 20; TEMP 96.8; O2SAT 96
[2017-12-11 12:37] VITALS: BP 119/60; TEMP 96.8
[2017-12-11 12:53] VITALS: TEMP 96.2
== END 2017-12-11 16:17 | DRG 689 ==
LOC: NEPC 02:32 → NEDA 06:25 → NEPGCP 16:36 → OBSVTOIN 12-06 12:49
PROVIDERS: ADMIT Family Medicine; ATTEND Family Medicine
DX: N39.0 Urinary tract infection, site not specified (principal); G93.40 Encephalopathy, unspecified; I48.91 Unspecified atrial fibrillation; Z68.41 Body mass index [BMI] 40.0-44.9, adult; R13.10 Dysphagia, unspecified; F03.90 Unspecified dementia, unspecified severity, without behavioral disturbance, psychotic disturbance, mood disturbance, and anxiety; J44.9 Chronic obstructive pulmonary disease, unspecified; G40.909 Epilepsy, unspecified, not intractable, without status epilepticus; E66.01 Morbid (severe) obesity due to excess calories; I10 Essential (primary) hypertension; E11.9 Type 2 diabetes mellitus without complications; E78.5 Hyperlipidemia, unspecified; H91.90 Unspecified hearing loss, unspecified ear; K21.9 Gastro-esophageal reflux disease without esophagitis; M19.90 Unspecified osteoarthritis, unspecified site; F41.8 Other specified anxiety disorders; Z99.3 Dependence on wheelchair; S82.402D Unspecified fracture of shaft of left fibula, subsequent encounter for closed fracture with routine healing; Z86.73 Personal history of transient ischemic attack (TIA), and cerebral infarction without residual deficits
CPT/HCPCS: 70450; 71045; 73590; 74177; 76937; 80048; 80053; 80177; 81001; 82140; 82550; 82565; 82948; 83036; 83605; 84443; 84484; 85025; 85610; 85652; 85730; 86403; 87040; 87077; 87086; 87186; 87205; 93005; 96361; 96365; 96372; 96375; 96376; G0378; G8987-GP; G8988-GP; G8996-GN; G8997-GN; G8998-GN; J0696; J1650; J1953; J2270; J2405; J3370; J7030; J7040; Q9967